=== PATIENT | female | born 1980 | race Caucasian/White ===

== ENCOUNTER → 2020-07-22 08:53 | Outpatient (BNVA) | payer MEDICAID, SELFPAY | PROVIDERS: Visit Provider Obstetrics & Gynecology | DX: N92.0 Excessive and frequent menstruation with regular cycle (principal); D64.9 Anemia, unspecified; Z80.3 Family history of malignant neoplasm of breast | CPT/HCPCS: 99213 ==

== ENCOUNTER 2020-08-10 16:16 | Outpatient (REF) | payer MEDICAID, SELFPAY ==
--- NOTE | 2020-08-10 16:36 | MR_ITS ---
EXAMINATION: MR BREAST WITHOUT AND WITH CONTRAST, BILATERAL CLINICAL INFORMATION: Family history of breast cancer. COMPARISON: Bilateral breast MRI 08/07/2019, bilateral mammogram 08/14/2019. TECHNIQUE: Imaging was performed with a dedicated breast coil. Prior to the administration of contrast, bilateral axial T1 and bilateral axial T2 weighted sequences were obtained. After the uneventful administration of?7 mL of Gadavist, dynamic contrast-enhanced VIBRANT series through the breasts in the axial plane were performed. Subtracted images were performed and reviewed. A delayed sagittal sequence through both breasts was acquired. Additionally, CAD post-processing, including maximum intensity projections, 3-D reconstructions and kinetic analysis, were performed an independent workstation and reviewed by the interpreting radiologist is a portion of this exam. FINDINGS: The patient's heterogeneously dense fibroglandular tissue demonstrates moderate diffuse background enhancement. There are numerous, bilateral, varying-sized cysts present. LEFT BREAST: No suspicious masslike or non-masslike enhancement. No abnormal skin thickening or nipple retraction. No abnormal architectural distortion. Review of the T2 weighted images demonstrates no fibrocystic changes or dilated ducts. Review of kinetic images reveals no additional findings. RIGHT BREAST: In the 3 o'clock position, 6 cm from the nipple, there is new [id number], linear, clumped nodular enhancement measuring 1.7 cm anterior to posterior (subtracted sequence image 67 of 126). Review of most recent prior mammogram reveals innumerable bilateral calcifications, therefore, determining a reliable mammographic correlate would be unlikely. There is no suspicious internal mammary chain or axillary adenopathy. Limited views of the chest and abdomen are unremarkable. MR/MR breast BI wo/w con IMPRESSION: New tyq-wiys-[id number] enhancement in the 3 o'clock position of the right breast. ASSESSMENT: LEFT BREAST: BI-RADS 2, benign findings. RIGHT BREAST: BI-RADS 4, suspicious. RECOMMENDATIONS: MR-guided core biopsy of right breast enhancement. Results were called to Dr. Lama's office on 08/17/20.
== END 2020-08-10 16:17 | disposition home or self-care (01) ==
LOC: HO.MRI 16:16
PROVIDERS: PCP Family Medicine; Visit Provider Obstetrics & Gynecology
DX: Z80.3 Family history of malignant neoplasm of breast (principal)
CPT/HCPCS: 77049

== ENCOUNTER 2020-08-19 12:14 | Outpatient (REF) | payer MEDICAID, SELFPAY ==
--- NOTE | 2020-08-19 12:19 | MM_ITS ---
EXAMINATION: MM SCREENING DIGITAL BREAST TOMOSYNTHESIS, BILATERAL CLINICAL INFORMATION: Screening. Asymptomatic. Family history breast cancer in sister. The lifetime risk of breast cancer based on the Tyrer-Cuzick Model is 17%. COMPARISON: Mammography: 08/14/2019, 08/12/2018, 01/30/2018, 05/31/2017; MRI breast 08/10/2020. TECHNIQUE: Digital breast tomosynthesis is performed in both the craniocaudal and mediolateral oblique views along with computer-aided detection (CAD). Synthesized 2D images are generated from the tomosynthesis. FINDINGS: The breasts are heterogeneously dense, which may obscure small masses (ACR BI-RADS breast composition Category c). There are numerous bilateral scattered similar appearing calcifications again noted. Neither breast shows significant mass or architectural abnormality or developing density. No interval focal abnormal calcifications. The axilla and skin contours are unremarkable. There is no mammographic correlate for the non-mass enhancement posterior medial right breast on recent MRI. MM/MM tomosynthesis screening BI IMPRESSION: 1. No significant changes from prior studies. 2. No mammographic correlate for the non-mass enhancement posterior medial right breast on recent MRI. ASSESSMENT: BI-RADS 2: Benign RECOMMENDATION: 1. Routine annual mammography screening. 2. Comment: Recent MR breast report recommends MR-guided biopsy right breast. This patient's information was entered into a reminder system with a target due date for their next mammogram.
== END 2020-08-19 12:15 | disposition home or self-care (01) ==
LOC: HO.MAMMO 12:14
PROVIDERS: Visit Provider Family Medicine
DX: Z12.31 Encounter for screening mammogram for malignant neoplasm of breast (principal)
CPT/HCPCS: 77063; 77067

== ENCOUNTER → 2020-08-23 08:30 | Outpatient (BNVA) | payer MEDICAID, SELFPAY | PROVIDERS: PCP Family Medicine; Visit Provider Surgery | DX: R92.8 Other abnormal and inconclusive findings on diagnostic imaging of breast (principal); J30.1 Allergic rhinitis due to pollen; K58.9 Irritable bowel syndrome, unspecified; N39.0 Urinary tract infection, site not specified; F41.8 Other specified anxiety disorders; Z88.6 Allergy status to analgesic agent | CPT/HCPCS: 99212 ==

== ENCOUNTER 2020-09-06 07:29 | Outpatient (REF) | payer MEDICAID, SELFPAY ==
--- NOTE | 2020-09-06 07:38 | MR_ITS ---
EXAMINATION: MR BREAST WITHOUT AND WITH CONTRAST (TARGETING FOR BIOPSY) CLINICAL INFORMATION: Family history breast cancer, sister, age 32. Patient presents for MR guided biopsy posterior medial right breast for linear superficial enhancement noted on high risk screening MR 08/10/2020. COMPARISON: MRI breasts 08/10/2020, screening digital breast tomosynthesis 08/19/2020. TECHNIQUE/PROCEDURE: Hospital provided telecom manager assisted during consent and throughout the imaging and planned procedure. Informed consent was obtained from the patient after discussion of the benefits, risks, and alternatives to biopsy today. Patient appeared to understand. Gave opportunity for questions. Patient signed consent form. MR imaging is performed without and with use of 7.0 mL Gadavist gadolinium contrast. Patient prone. [facility] localization system is used with grid. Multiple sequences performed early phase following contrast. Subtraction images also performed. There is no focal abnormal enhancement demonstrated in the area of concern to target for tissue sampling. Biopsy is therefore not performed. Recommend follow-up high risk breast MR in 6-12 months to reassess. Preliminary management plans discussed with the patient. Results called to product manager medical device ([facility]) for Dr. Gonzalez on 09/06/2020. MR/MR guided breast biopsy RT IMPRESSION: No focal abnormal enhancement in area of concern 2 targeted for tissue sampling. Biopsy is not performed. ASSESSMENT: BI-RADS 3: Probably Benign RECOMMENDATION: MR bilateral breasts in 6-12 months.
== END 2020-09-06 07:30 | disposition home or self-care (01) ==
LOC: HO.MRI 07:29
PROVIDERS: PCP Family Medicine; Visit Provider Surgery
DX: R92.8 Other abnormal and inconclusive findings on diagnostic imaging of breast (principal)
CPT/HCPCS: 19085; A9585

== ENCOUNTER → 2020-10-07 10:50 | Outpatient (BNVA) | payer MEDICAID, SELFPAY | PROVIDERS: PCP Family Medicine; Visit Provider Obstetrics & Gynecology | DX: Z76.89 Persons encountering health services in other specified circumstances (principal) ==

== ENCOUNTER 2020-10-17 13:42 | Outpatient (REF) | payer MEDICAID, SELFPAY ==
[2020-10-18 21:57] LABS: C. trachomatis RNA TMA NOT DETECTED (NOT DETECTED); N. gonorrhoeae RNA TMA NOT DETECTED (NOT DETECTED)
== END 2020-10-17 13:43 | disposition home or self-care (01) ==
LOC: HO.LAB 13:42
PROVIDERS: PCP Family Medicine; Visit Provider Advanced Practice Midwife
DX: Z20.2 Contact with and (suspected) exposure to infections with a predominantly sexual mode of transmission (principal)
CPT/HCPCS: 87491; 87591

== ENCOUNTER → 2020-10-24 15:26 | Outpatient (BNVA) | payer MEDICAID, SELFPAY | PROVIDERS: PCP Family Medicine; Visit Provider Obstetrics & Gynecology | DX: Z01.818 Encounter for other preprocedural examination (principal); N92.0 Excessive and frequent menstruation with regular cycle | CPT/HCPCS: 99212 ==

== ENCOUNTER 2020-10-28 07:11 | Day surgery (SDC) | payer MEDICAID, SELFPAY ==
[2020-10-20 13:34] VITALS: BMI 26.5
--- NOTE | 2020-10-26 14:15 | HO.ANESPROP2 ---
HPI - Anesthesia Eval Consult details Narrative: 40yo F for Uterine Ablation w/Novasure Rescheduled d/t fever >100 PMFSH Past Medical History Medical History Acid reflux Anemia Anxiety Asthma Depression GERD (gastroesophageal reflux disease) History of kidney stones History of thyroid disorder IBS (irritable bowel syndrome) Recurrent urinary tract infection Family History Family History Father Diabetes mellitus Mother Stroke Diabetes mellitus HTN (hypertension) Family/Other Breast cancer Ovarian cancer Uterine cancer Son No problems noted. Son No problems noted. Daughter No problems noted. Surgical History Surgical History H/O section History of bilateral tubal ligation History of carpal tunnel surgery of left wrist History of kidney surgery History of lumpectomy of left breast Social History Social History Alcohol intake: never Smoking Status: Never smoker Second Hand Smoke Exposure: No Use of substances other than those prescribed or required for medical reasons: No Advance Directives: No Advance Directives Information Provided: No Advance Directives on File: No Sexual orientation: Straight/Heterosexual Gender identity: female Meds Allergies Allergy/AdvReac Type Severity Reaction Status Date / Time aspirin Allergy Intermediate itching Verified 10/24/20 15:40 pollen Allergy Intermediate Sneezing Uncoded 10/24/20 15:40 Home Medications Medication Instructions Recorded Confirmed Type albuterol sulfate 90 mcg/actuation 2 puff INHALATION Q6H PRN 07/22/20 10/07/20 History aerosol inhaler cholecalciferol (vitamin D3) 10 10 mcg PO DAILY 07/22/20 10/07/20 History mcg (400 unit) capsule cyclobenzaprine 5 mg tablet 10 mg PO BEDTIME 07/22/20 10/07/20 History gabapentin 300 mg capsule 300 mg PO DAILY 07/22/20 10/07/20 History naproxen sodium 550 mg tablet 550 mg PO BID PRN 07/22/20 10/07/20 History norethindrone (contraceptive) 0.35 0.35 mg PO DAILY 07/22/20 10/07/20 History mg tablet fluticasone propionate 1 spray INTRANASAL DAILY 08/04/20 10/07/20 History loratadine 10 mg PO DAILY 08/04/20 10/07/20 History melatonin 1 mg PO BEDTIME PRN 08/04/20 10/07/20 History omeprazole 20 mg PO DAILY 08/04/20 10/07/20 History Exam Exam Date and Time: October 26, 2020 141 Height,Weight and Vital Signs: Height 5 ft 3 in Weight 68.039 kg Pertinent Lab Results Pertinent Lab Results: Laboratory Tests 08/04/20 08/04/20 10:07 10:07 WBC 4.4 L Hgb 12.3 Hct 35.9 L Plt Count 264 Sodium 137 Potassium 4.2 Chloride 104 Carbon Dioxide 29 BUN 10 Creatinine 0.79 Assessment and Plan Assessment Anesthesia Assessment: Chart Reviewed
[2020-10-27 08:40] VITALS: BMI 26.5
--- NOTE | 2020-10-28 08:04 | MHC.SHP ---
Pre-Procedural Eval Section A The patient is an INPATIENT: No Changes since office visit: No Cold of Flu in the past 2 weeks, No New Medical Problems, No Changes in Medication and No Patient answered all questions The History & Physical has been completed within 30 days and I have reviewed it.: Yes Section B Chief Complaint: menorrhagia Allergies: Allergies Allergy/AdvReac Type Severity Reaction Status Date / Time aspirin Allergy Intermediate itching Verified 10/24/20 15:40 pollen Allergy Intermediate Sneezing Uncoded 10/24/20 15:40 Plan Diagnosis/Plan: Unchanged I have reviewed the history and physical and performed a pertinent physical examination on my patient. No changes have occurred unless specified.
[2020-10-28 08:13] VITALS: BP 126/84; PULSE 111; RESP 16; TEMP 37.7; O2SAT 100
[2020-10-28 08:35] LABS: COVID-19 Test Negative (Negative)
== END 2020-10-28 23:59 ==
LOC: HO.SSS 07:11
PROVIDERS: Anesthesiology; PCP Family Medicine; Visit Provider Obstetrics & Gynecology
DX: N92.0 Excessive and frequent menstruation with regular cycle (principal); Z53.09 Procedure and treatment not carried out because of other contraindication; R50.9 Fever, unspecified
CPT/HCPCS: 36415; 87635; J1100; J2250; J2405; J3010

== ENCOUNTER → 2020-11-16 13:35 | Outpatient (BNVA) | payer MEDICAID, SELFPAY | PROVIDERS: Visit Provider Obstetrics & Gynecology | DX: Z76.89 Persons encountering health services in other specified circumstances (principal) ==

== ENCOUNTER → 2020-12-07 11:09 | Outpatient (BNVA) | payer MEDICAID, SELFPAY | PROVIDERS: PCP Family Medicine; Visit Provider Obstetrics & Gynecology | DX: N92.0 Excessive and frequent menstruation with regular cycle (principal) | CPT/HCPCS: 99212 ==

== ENCOUNTER 2020-12-16 10:29 | Day surgery (SDC) | payer MEDICAID, SELFPAY ==
[2020-12-12 12:47] VITALS: BMI 25.8
--- NOTE | 2020-12-14 12:05 | P.CONAN_ITS ---
Documented by User: Ekta Eisenberg 12/14/20 12:06 HPI - Anesthesia Eval Consult details Narrative: 40yo F for Uterine Ablation w/Novasure Rescheduled from 10/26/20 d/t fever >100 and tachy PMFSH Active Problems Active Problems: All Active Problems (Updated 12/12/20 @ 12:54 by Roberta Burris) Menorrhagia (Acute) FH: breast cancer in first degree relative (Acute) Iron deficiency anemia (Acute) Abnormal MRI, breast (Acute) Well woman exam with routine gynecological exam (Acute) Potential exposure to STD (Acute) Past Medical History Medical History (Updated 12/16/20 @ 12:01 by Nikky Murray) Acid reflux Anemia Anxiety Asthma Depression GERD (gastroesophageal reflux disease) History of kidney stones History of thyroid disorder IBS (irritable bowel syndrome) Recurrent urinary tract infection Shoulder pain Family History Family History Father Diabetes mellitus Mother Stroke Diabetes mellitus HTN (hypertension) Family/Other Breast cancer Ovarian cancer Uterine cancer Son No problems noted. Son No problems noted. Daughter No problems noted. Surgical History Surgical History H/O section History of bilateral tubal ligation History of carpal tunnel surgery of left wrist History of lumpectomy of left breast Hx of lithotripsy Social History Social History Alcohol intake: never Smoking Status: Former smoker Smoking Quit Date: 10/2020 Second Hand Smoke Exposure: No Use of substances other than those prescribed or required for medical reasons: No Advance Directives: No Advance Directives Information Provided: No Advance Directives on File: No Sexual orientation: Straight/Heterosexual Gender identity: female Meds Allergies Allergy/AdvReac Type Severity Reaction Status Date / Time aspirin Allergy Intermediate itching Verified 12/12/20 12:25 Penicillins Allergy Unknown Verified 12/16/20 11:07 pollen Allergy Intermediate Sneezing Uncoded 12/12/20 12:25 Home Medications Medication Instructions Recorded Confirmed Last Taken Type albuterol sulfate 90 mcg/actuation 2 puff INHALATION Q6H PRN 07/22/20 12/12/20 Unknown History aerosol inhaler cholecalciferol (vitamin D3) 10 10 mcg PO DAILY 07/22/20 12/12/20 Unknown History mcg (400 unit) capsule cyclobenzaprine 5 mg tablet 10 mg PO BEDTIME 07/22/20 12/12/20 Unknown History gabapentin 300 mg capsule 300 mg PO BID 07/22/20 12/12/20 Unknown History naproxen sodium 550 mg tablet 550 mg PO BID PRN 07/22/20 12/12/20 Unknown History fluticasone propionate 1 spray INTRANASAL DAILY 08/04/20 12/12/20 Unknown History loratadine 10 mg PO DAILY 08/04/20 12/12/20 12/16/20 History melatonin 1 mg PO BEDTIME PRN 08/04/20 12/12/20 Unknown History omeprazole 20 mg PO DAILY 08/04/20 12/12/20 12/16/20 History Exam Exam Date and Time: December 14, 2020 1205 Height,Weight and Vital Signs: Height 5 ft 3 in Weight 66.224 kg Pertinent Lab Results Pertinent Lab Results: Laboratory Tests 08/04/20 10:07 WBC 4.4 L Hgb 12.3 Hct 35.9 L Plt Count 264 Assessment and Plan Assessment Anesthesia Assessment: Chart Reviewed Documented by User: Nikky Murray 12/16/20 12:01 REPLACED BY [facility] Past Medical History Medical History (Updated 12/16/20 @ 12:01 by Nikky Murray) Acid reflux Anemia Anxiety Asthma Depression GERD (gastroesophageal reflux disease) History of kidney stones History of thyroid disorder IBS (irritable bowel syndrome) Recurrent urinary tract infection Shoulder pain Family History Family History Father Diabetes mellitus Mother Stroke Diabetes mellitus HTN (hypertension) Family/Other Breast cancer Ovarian cancer Uterine cancer Son No problems noted. Son No problems noted. Daughter No problems noted. Family history of problems with anesthesia: No Surgical History Surgical History H/O section History of bilateral tubal ligation History of carpal tunnel surgery of left wrist History of lumpectomy of left breast Hx of lithotripsy History of Problems with Anesthesia: No Social History Social History Alcohol intake: never Smoking Status: Former smoker Smoking Quit Date: 10/2020 Second Hand Smoke Exposure: No Use of substances other than those prescribed or required for medical reasons: No Advance Directives: No Advance Directives Information Provided: No Advance Directives on File: No Sexual orientation: Straight/Heterosexual Gender identity: female Meds Allergies Allergy/AdvReac Type Severity Reaction Status Date / Time aspirin Allergy Intermediate itching Verified 12/12/20 12:25 Penicillins Allergy Unknown Verified 12/16/20 11:07 pollen Allergy Intermediate Sneezing Uncoded 12/12/20 12:25 Home Medications Medication Instructions Recorded Confirmed Last Taken Type albuterol sulfate 90 mcg/actuation 2 puff INHALATION Q6H PRN 07/22/20 12/12/20 Unknown History aerosol inhaler cholecalciferol (vitamin D3) 10 10 mcg PO DAILY 07/22/20 12/12/20 Unknown History mcg (400 unit) capsule cyclobenzaprine 5 mg tablet 10 mg PO BEDTIME 07/22/20 12/12/20 Unknown History gabapentin 300 mg capsule 300 mg PO BID 07/22/20 12/12/20 Unknown History naproxen sodium 550 mg tablet 550 mg PO BID PRN 07/22/20 12/12/20 Unknown History fluticasone propionate 1 spray INTRANASAL DAILY 08/04/20 12/12/20 Unknown History loratadine 10 mg PO DAILY 08/04/20 12/12/20 12/16/20 History melatonin 1 mg PO BEDTIME PRN 08/04/20 12/12/20 Unknown History omeprazole 20 mg PO DAILY 08/04/20 12/12/20 12/16/20 History Exam Height,Weight and Vital Signs: Vital Signs Temp Pulse Resp BP Pulse Ox 12/16/20 11:14 98.8 F 108 H 16 128/91 H 100 Pertinent Lab Results Pertinent Lab Results: Lab Results 12/16/20 Range/Units 10:50 Urine Test NEGATIVE (NEGATIVE) Airway Mallampati Class: II TM Dist: >3cm Neck ROM: Full Partial: Upper and Lower Heart: RRR Lungs: CTAB Assessment and Plan Assessment Anesthesia Assessment: Anesthesia Plan Discussed and Chart Reviewed Final Anesthetic Review NPO: Yes ASA Class: II Final Preanesthetic Review: No Changes in Pt Med Stat, Meds/Allgs Chart Reviewed, Consent Obtained/Reviewed and Anes Risks/Benef Reviewed Patient Risk: Low Procedure Risk: Low Assessment/Block/Sedation in SS: Assess/Block/Sedation-SS Anesthetic Plan Anesthetic Plan: GA Disposition: Standard PACU
[2020-12-16] VITALS (8 sets, daily range): BP systolic 128–141; BP diastolic 73–95; PULSE 81–108; RESP 14–16; TEMP 36.3–37.1; O2SAT 98–100
[2020-12-16 11:00] LABS: UPreg QC Valid YES; Urine Pregnancy NEGATIVE (NEGATIVE)
[2020-12-16] MEDS: Lactated Ringers 1,000 ML 100 ML IVCONT (11:28)
--- NOTE | 2020-12-16 11:34 | MHC.SHP ---
Pre-Procedural Eval Section B Chief Complaint: Menorrhagia Allergies: Allergies Allergy/AdvReac Type Severity Reaction Status Date / Time aspirin Allergy Intermediate itching Verified 12/12/20 12:25 Penicillins Allergy Unknown Verified 12/16/20 11:07 pollen Allergy Intermediate Sneezing Uncoded 12/12/20 12:25 Plan I have reviewed the history and physical and performed a pertinent physical examination on my patient. No changes have occurred unless specified.
--- NOTE | 2020-12-16 12:31 | W.PM.OPN ---
Operative Note Operative Note Date of Service: 09/02/20 Narrative: Preop diagnosis: Menorrhagia Post Op Diagnosis: Same Op: Novasure Endometrial Ablation Anesthesia: [employer] Sales Donor Recruitment Representative: None QBL: Minimal Pathology: None Complications: None Procedure: The patient was put in the dorsal lithotomy position. She was prepped and draped in the usual sterile manner. Bimanual exam prior to prepping revealed a mobile, anteverted uterus. A speculum was placed in the vagina and the anterior lip of the cervix was grasped with a single toothed tenaculum and brought forward. Taking care not to enter deep into the uterus, a sound was passed inside to measure the length of the uterus and cervix. This length was found to be 8 cm. Next, Hegar dilator was inserted into the cervical os to measure the cervical length which was 3 cm. This yielded an endometrial cavity length of 6.5 cm. A series of Hegar dilators were then inserted sequentially into the cervical os up to a size of 5 mm. The Novasure device was then opened and tested; the fan deployed easily. The instrument was set to the correct cavity length and introduced into the uterine cavity. The fan was slowly deployed with gentle movements to ensure a snug fit within the cavity. The cavity width read 4.5 cm. The measurements were imported and a cavity check was done. The trumpet was then slid down to the cervix and the device was activated. The total burn time was 91 seconds. The fan was retracted and device removed. The fan was examined and revealed charred tissue. The tenaculum was removed and the cervix examined for hemostasis which was achieved using pressure. Finally the speculum was removed. The patient tolerated the procedure well and was brought to the recovery room in a stable condition. At the end of the procedure all sponges and instruments were counted and correct. The blood loss was minimal and there were no complications.
[2020-12-16] MEDS: Acetaminophen 325 MG TABLET 650 MG PO (13:02)
[2020-12-16] MEDS: oxyCODONE HCl Immed Release 5 MG TABLET PO (13:02)
[2020-12-16] MEDS: fentaNYL citrate/PF 100 MCG/2 ML VIAL 25 MCG IVPUSH (13:03)
== END 2020-12-16 14:06 ==
LOC: HO.SSS 10:30
PROVIDERS: PCP Family Medicine; Visit Provider Obstetrics & Gynecology
PROC: (CPT 58353; principal; 2020-12-16 12:20)
DX: N92.0 Excessive and frequent menstruation with regular cycle (principal); D50.9 Iron deficiency anemia, unspecified; J45.909 Unspecified asthma, uncomplicated; Z98.51 Tubal ligation status; Z87.440 Personal history of urinary (tract) infections; Z79.51 Long term (current) use of inhaled steroids; Z79.899 Other long term (current) drug therapy
CPT/HCPCS: 58353; 81025; J1100; J1885; J2250; J2405; J3010

== ENCOUNTER → 2020-12-28 11:16 | Outpatient (BNVA) | payer MEDICAID, SELFPAY | PROVIDERS: Visit Provider Obstetrics & Gynecology ==

== ENCOUNTER 2021-01-04 09:40 | Outpatient (REF) | payer MEDICAID, SELFPAY ==
--- NOTE | 2021-01-04 09:43 | EMG_ITS ---
HISTORY OF PRESENT ILLNESS: This is a 40-year-old woman, who has had left carpal tunnel release about 5 years ago, who now comes in with predominantly right upper extremity pain, numbness, and tingling and minor symptoms on the left. She is on no medications. PHYSICAL EXAMINATION: On examination, she is alert and oriented with normal intellectual functions. Cranial nerves II through XII are normal. No Tinel or Phalen sign. IMPRESSION: Carpal tunnel syndrome. Nerve conduction EMG study: Moderate carpal tunnel syndrome on the right. Normal EMG of the right C5-T1 innervated muscles. MD JUAN Navas/RIC / [id number]
== END 2021-01-04 09:41 | disposition home or self-care (01) ==
LOC: HO.NEURO 09:40
PROVIDERS: PCP Family Medicine; Visit Provider Family Medicine
DX: G56.03 Carpal tunnel syndrome, bilateral upper limbs (principal)
CPT/HCPCS: 95885; 95913

== ENCOUNTER → 2021-01-16 12:30 | Outpatient (BNVA) | payer MEDICAID, SELFPAY | PROVIDERS: PCP Family Medicine; Visit Provider Orthopaedic Surgery | DX: G56.01 Carpal tunnel syndrome, right upper limb (principal); R20.0 Anesthesia of skin | CPT/HCPCS: 99202 ==

== ENCOUNTER 2021-02-23 10:12 | Day surgery (SDC) | payer MEDICAID, SELFPAY ==
[2021-02-23 11:34] VITALS: BP 131/83; PULSE 100; RESP 16; TEMP 36.7; O2SAT 100; BMI 25.3
[2021-02-23 14:46] VITALS: BP 142/93; PULSE 83; RESP 17; TEMP 36.7; O2SAT 100
--- NOTE | 2021-03-06 10:30 | W.PM.OPN ---
Operative Note Operative Note Date of Service: 02/23/21 Narrative: Preop diagnosis: 1. Right Carpal tunnel syndrome Postop diagnosis: same Procedure: 1. Right Carpal tunnel release Surgeon: Nubia Robles MD Anesthesia: local block using 1% lidocaine with epinephrine Findings: Thickened transverse carpal ligament. EBL: Less than 5 mL Specimens: None Complications: None Disposition: Brought to recovery room in stable condition Plan: Follow-up for 7-10 days for wound check and suture removal Indications: The patient is 40 years old, with right carpal tunnel syndrome that has been unresponsive to nonoperative management. The risks and benefits of operative treatment including but not limited to risk of damage to blood vessels, nerves, tendons, infection, persistent pain, persistent symptoms, or possible need for additional surgery were discussed with the patient and the patient wishes to proceed with surgery. Procedure: Once consent was obtained a local block was performed using a combination of 1% lidocaine with epinephrine. The patient was then brought back to the operating suite and placed on the operative table in supine position. A tourniquet was applied to the proximal aspect of the right upper extremity and the limb was prepped and draped in a standard surgical fashion. Once assured that we had a good block, a 1.5 cm longitudinal incision was made centered over the carpal tunnel. The incision was made through the skin to the subcutaneous tissues using a #15 blade. Dissection was made down to the level of the transverse carpal ligament with care being taken to protect the palmar cutaneous nerve. Once the transverse carpal ligament was clearly visualized, a longitudinal incision was made in the transverse carpal ligament 1st using a #15 blade, then using tenotomy scissors under direct visualization. Care was taken to look for and protect the motor branch of the median nerve when seen in this area. Once satisfied with our carpal tunnel release the wound was copiously irrigated with normal saline and hemostasis was obtained with a brief period of local pressure. The skin edges were reapproximated with some 5.0 nylon suture material and a sterile dressing was applied. The patient appears to have tolerated the procedure well and with no complications. All digits were well vascularized at the conclusion of the case.
== END 2021-02-23 14:49 | disposition home or self-care (01) ==
LOC: HO.SSS 10:13
PROVIDERS: PCP Family Medicine; Visit Provider Orthopaedic Surgery
PROC: (CPT 64721; principal; 2021-02-23 12:20)
DX: G56.01 Carpal tunnel syndrome, right upper limb (principal); J45.909 Unspecified asthma, uncomplicated; F32.9 Major depressive disorder, single episode, unspecified; Z79.899 Other long term (current) drug therapy; Z79.51 Long term (current) use of inhaled steroids; Z88.1 Allergy status to other antibiotic agents; Z88.8 Allergy status to other drugs, medicaments and biological substances; Z87.891 Personal history of nicotine dependence
CPT/HCPCS: 64721

== ENCOUNTER → 2021-03-06 09:10 | Outpatient (BNVA) | payer MEDICAID, SELFPAY | PROVIDERS: PCP Family Medicine; Visit Provider Orthopaedic Surgery | DX: G56.01 Carpal tunnel syndrome, right upper limb (principal); R20.0 Anesthesia of skin | CPT/HCPCS: 99212 ==

== ENCOUNTER → 2021-03-14 10:24 | Outpatient (BNVA) | payer MEDICAID, SELFPAY | PROVIDERS: Visit Provider Orthopaedic Surgery | DX: G56.01 Carpal tunnel syndrome, right upper limb (principal) | CPT/HCPCS: 99212 ==

== ENCOUNTER 2021-03-29 14:30 | Outpatient (RCR) | payer MEDICAID, SELFPAY | END 2021-05-26 11:42 | disposition other institution (70) | LOC: HO.OT 14:30 | PROVIDERS: PCP Family Medicine; Visit Provider Orthopaedic Surgery | DX: G56.01 Carpal tunnel syndrome, right upper limb (principal) | CPT/HCPCS: 97033; 97110; 97165; 97760 ==

== ENCOUNTER 2021-06-23 11:18 | Outpatient (REF) | payer MEDICAID, SELFPAY | END 2021-06-23 11:19 | disposition home or self-care (01) | LOC: HO.LAB 11:18 | PROVIDERS: PCP Family Medicine; Visit Provider Internal Medicine | DX: Z20.822 Contact with and (suspected) exposure to COVID-19 (principal) | CPT/HCPCS: C9803; U0003; U0005 ==

== ENCOUNTER 2021-07-30 12:28 | Emergency (ER) | payer MEDICAID, SELFPAY ==
--- NOTE | ~2021-07-30 | XR_ITS ---
EXAMINATION: XR CHEST CLINICAL INFORMATION: Right-sided chest wall pain COMPARISON: None TECHNIQUE: Frontal view of the chest was obtained. FINDINGS: No significant abnormality is noted involving the heart, lungs, mediastinum, bony thorax or soft tissues. XR/XR chest 1V IMPRESSION: Unremarkable chest examination.
--- NOTE | ~2021-07-30 | CT_ITS ---
EXAMINATION: CT ABDOMEN AND PELVIS WITH CONTRAST CLINICAL INFORMATION: Epigastric pain COMPARISON: 03/29/2016 TECHNIQUE: Multidetector volumetric images were obtained from the superior aspect of the liver through the pubic symphysis following administration 85 mL of Omnipaque 350 intravenous contrast. Sagittal and coronal reformatted images were obtained on the technologist's workstation. Oral contrast: No This CT examination was performed using dose optimization techniques as appropriate, variously including the following: *Automated exposure control *Adjustment of mA and/or kV according to patient size (this includes techniques or standardized protocols for targeted exams where dose is matched to indication/reason for exam; i.e. extremities or head) *Use of iterative reconstruction technique DLP: 446 mGy-cm FINDINGS: LUNG BASES: The visualized lung bases are unremarkable. LIVER, GALLBLADDER, AND BILIARY TREE: The liver is normal in size, shape, and attenuation. No focal hepatic lesion or biliary ductal dilatation is present. The gallbladder is unremarkable with no evidence of radiopaque gallstones, gallbladder wall thickening, or obvious pericholecystic inflammatory changes. PANCREAS: Unremarkable. SPLEEN: Unremarkable. ADRENAL GLANDS: Unremarkable. KIDNEYS AND URETERS: The kidneys are normal in size, shape, and attenuation. No hydronephrosis, hydroureter, or calculi seen. No perinephric stranding. Extrarenal pelvis bilaterally. BLADDER: Unremarkable. GASTROINTESTINAL TRACT: The small and large bowel are unremarkable. The appendix is unremarkable. ABDOMINAL WALL: No significant hernia is appreciated. LYMPH NODES: Normal. VASCULAR: Unremarkable. PELVIC VISCERA: Unremarkable. OSSEOUS STRUCTURES: Unremarkable. CT/CT abdomen pelvis w con IMPRESSION: No significant abnormality.
[2021-07-30 13:13] VITALS: BP 129/89; PULSE 86; RESP 18; TEMP 36.8; O2SAT 97; BMI 26.7
[2021-07-30 13:34] LABS: Basophils Percent Auto 0.7 % (0-2); Eosinophils Absolute Auto 0.1 X10*3/uL (0.0-0.4); Eosinophils Percent Auto 1.1 % (0-4); Hematocrit 38.5 % (37-47); Hemoglobin 12.8 g/dl (12.0-16.0); Imm Gran Abs Auto 0.01 X10*3/uL (0.00-0.03); Imm Gran Pct Auto 0.2 % (0.0-0.4); Lymphocytes Absolute Auto 1.8 X10*3/uL (1.2-4.9); MANUAL DIFF FLAG NO; Mean Corpuscular HGB Conc 33.2 g/dl (31.0-35.0); Mean Corpuscular Hemoglobin 29.9 pg (27.0-33.0); Mean Platelet Volume 10.3 fL (9.4-12.3); Monocytes Absolute Auto 0.4 X10*3/uL (0.1-1.2); Neutrophils Absolute Auto 3.3 X10*3/uL (2.0-8.3); Platelet Count 265 X10*3/uL (160-400); Red Blood Count 4.28 X10*6/uL (4.20-5.50); Red Cell Distribution Width 12.1 % (11.0-16.0); White Blood Count 5.6 X10*3/uL (4.8-10.8)
[2021-07-30 13:53] LABS: Alanine Aminotransferase 20 U/L (0-31); Albumin Level 4.4 g/dL (3.5-5.0); Alkaline Phosphatase 45 U/L (39-117); Anion Gap 11 (12-20); Aspartate Amino Transferase 19 U/L (5-31); Bilirubin Direct 0.2 mg/dL (0.0-0.5); Bilirubin Total 0.4 mg/dL (0.0-1.0); Blood Urea Nitrogen 6 mg/dL (9-16); Calcium 9.1 mg/dL (8.4-10.2); Carbon Dioxide 26 mmol/L (22-29); Chloride 105 mmol/L (96-108); Creatinine Clr Calc Pharmacy 80.2; Estimated Glomerular Filt Rate > 60; Glucose Random 91 mg/dL (60-115); Lipase 12 U/L (8-78); Potassium 4.1 mmol/L (3.3-5.1); Sodium 138 mmol/L (135-145); Total Protein 7.5 g/dL (6.5-8.0)
[2021-07-30 13:55] LABS: Troponin-I High Sensitivity < 3.5 ng/L (<3.5-17.0)
[2021-07-30 16:01] LABS: Appearance Urine CLEAR; Color Urine STRAW; Glucose Urine UA NEG (NEG); Leukocyte Esterase Urine NEG (NEG); Nitrite Urine NEG (NEG); PH 6.5 (5.0-8.0); Specific Gravity - Urine <= 1.005 (1.005-1.025); UACC Culture Trigger NO; Urine Blood 2+ (NEG); Urine Ketones NEG (NEG); Urine Protein NEG (NEG-TRACE)
[2021-07-30 16:03] LABS: UPreg QC Valid YES; Urine Pregnancy NEGATIVE (NEGATIVE)
[2021-07-30 16:11] LABS: Amorphous Sediment Urine TRACE /LPF; Bacteria Urine TRACE /LPF; RBC Urine 0-2 /HPF (0); Squamous Epithelial Cell Urine TRACE /LPF; WBC Urine 0-2 /HPF (0-4)
[2021-07-30 16:32] VITALS: BP 159/91; PULSE 116; RESP 17; TEMP 37.1; O2SAT 100
--- NOTE | 2021-07-30 16:56 | ED_ITS ---
HPI - General Adult General Chief complaint: General Medical Stated complaint: shoulder & abd pain Time Seen by Provider: 07/30/21 16:55 Source: patient Mode of arrival: ambulatory Limitations: language barrier History of Present Illness HPI narrative: 41-year-old Nepalese-speaking woman presents with right-sided jody st wall pain and epigastric pain. Her chest pain is constant, and is worse when she lifts objects. Patient reports she is very stressed because her dad is ill in [place]. Patient has had no nausea, no shortness of breath, no sweating. The chest pain is on the right side and has been constant for the last 4 days. In addition patient has epigastric pain. This pain she describes as a stabbing, it does not radiate to her back. It is an 8/10, and is intermittent, no nausea, no vomiting, no diarrhea. It is not worse with eating. Patient did have a referral to GI, but she had to go to [place] because her father was ill and miss the appointment. Related Data Home Medications Medication Instructions Recorded Confirmed albuterol sulfate 90 mcg/actuation 2 puff INHALATION Q6H PRN 07/22/20 12/28/20 aerosol inhaler cholecalciferol (vitamin D3) 10 10 mcg PO DAILY 07/22/20 12/28/20 mcg (400 unit) capsule cyclobenzaprine 5 mg tablet 10 mg PO BEDTIME 07/22/20 12/28/20 gabapentin 300 mg capsule 300 mg PO BID 07/22/20 12/28/20 naproxen sodium 550 mg tablet 550 mg PO BID PRN 07/22/20 12/28/20 (Anaprox DS) fluticasone propionate 50 1 spray INTRANASAL DAILY 08/04/20 12/28/20 mcg/actuation nasal spray,suspension loratadine 10 mg tablet 10 mg PO DAILY 08/04/20 12/28/20 melatonin 1 mg tablet 1 mg PO BEDTIME PRN 08/04/20 12/28/20 omeprazole 20 mg capsule,delayed 20 mg PO DAILY 08/04/20 12/28/20 release Previous Rx's Medication Instructions Recorded hydrocodone 5 mg-acetaminophen 325 1 tab PO Q4-6H PRN #5 tab 02/23/21 mg tablet lidocaine 5 % topical patch 1 patch TOPICAL DAILY #15 ea 07/30/21 omeprazole 40 mg capsule,delayed 40 mg PO DAILY 30 Days #30 cap 07/30/21 release Allergies Allergy/AdvReac Type Severity Reaction Status Date / Time aspirin Allergy Intermediate itching Verified 07/30/21 13:18 Penicillins Allergy Unknown Verified 07/30/21 13:18 pollen Allergy Intermediate Sneezing Uncoded 07/30/21 13:18 Review of Systems Constitutional: Constitutional: Denies body ache(s), Denies chills, Denies fatigue, Denies fever(s), Denies headache(s), Denies malaise and Denies weakness Eyes: Eyes: Denies diplopia ENT: Denies vertigo, Denies dizziness, Denies otalgia, Denies headache(s), Denies mouth pain, Denies post nasal drip, Denies sinus pain, Denies sinus pressure, Denies sore throat and Denies throat swelling Cardiovascular: Cardiovascular: Reports chest pain, Reports Epigastric Pain, Denies syncope, Denies leg edema, Denies lightheadedness, Denies Loss of Consciousness, Denies palpitations, Denies dyspnea and Denies dyspnea on exertio n Respiratory: Respiratory: Denies chest congestion, Denies cough, Denies dyspnea and Denies dyspnea on exertion Gastrointestinal: Gastrointestinal: Reports abdominal pain, Denies melena, Denies hematochezia, Denies coffee ground emesis, Denies constipation, Denies diarrhea, Denies nausea and Denies vomiting Genitourinary: Genitourinary: Reports no additional female genitourinary complaints Musculoskeletal: Musculoskeletal: Reports no additional musculoskeletal complaints Integumentary/Breasts: Skin/Breast: Denies rash Neurologic: Denies confusion, Denies vertigo, Denies dizziness, Denies sync ope, Denies headache(s) and Denies weakness Psychiatric: Psychiatric: Denies anxiety, Denies confusion and Denies depression Endocrine: Endocrine: Denies fatigue and Denies palpitations Allergic/Immunologic: Allergic/Immunologic: Denies throat swelling PMFSH Past Medical History Medical History Acid reflux Anemia Anxiety Asthma Depression GERD (gastroesophageal reflux disease) History of kidney stones History of thyroid disorder IBS (irritable bowel syndrome) Recurrent urinary tract infection Shoulder pain Surgical History H/O section History of bilateral tubal ligation History of carpal tunnel surgery of left wrist History of lumpectomy of left breast Hx of lithotripsy Status post endometrial ablation Family History Family History Father Diabetes mellitus Mother Stroke Diabetes mellitus HTN (hypertension) Family/Other Breast cancer Ovarian cancer Uterine cancer Son No problems noted. Son No problems noted. Daughter No problems noted. Social History Social History Alcohol intake: never Smoked in Last 30 Days: No Second Hand Smoke Exposure: Yes Use of substances other than those prescribed or required for medical reasons: Yes Substance Use Type: Marijuana Advance Directives: No Advance Directives Information Provided: Yes Patient : No Sexual orientation: Straight/Heterosexual Gender identity: Female Physical Exam Vital Signs: Vital Signs: Last Vital Signs Temp 99.3 F 07/30/21 18:03 Pulse 78 07/30/21 21:21 Resp 16 07/30/21 21:21 BP 145/96 H 07/30/21 21:21 Pulse Ox 100 07/30/21 21:21 Body Mass Index 26.7 Const: General: No confusion Nutritional Appearance: well nourished Orientation/consciousness: No confusion Limitations: no limitations HENMT: Head: Yes normal to inspection, Yes normocephalic and Yes atraumatic Ears: hearing grossly normal bilaterally, external ears normal, TM's normal bilaterally and EAC's normal General nose exam: Normal external nose present Face and sinus: Yes normal facial exam and Yes sinuses nontender Mouth: Normal oral and palatal mucosa present Throat: Yes posterior oropharynx normal Eyes: Conjunctivae: conjunctivae normal Pupils: Equal, round and reactive pupils present EOM: EOMs intact bilaterally Neck: Neck: Yes full ROM, Yes no lymphadenopathy and Yes supple Chest: Other: Tender to palpate over right side of chest Resp: Effort & Inspection: normal respiratory effort and able to speak in complete sentences Auscultation: clear to auscultation bilaterally, no crackles, no rales, no rhonchi and no wheezes Cardio: Rate: regular rate Rhythm: regular rhythm Heart sounds: S1 normal heart sound present and S2 normal heart sound present GI: Inspection: Yes normal to inspection Palpation (GI): Soft to palpation, Tenderness to palpation present (GI) in the epigastrum and not rigid Percussi on: Yes normal to percussion Auscultation: normal bowel sounds Skin: General skin exam: no rashes or lesions noted Neuro: General: No confusion Cranial nerves: Yes Equal, round and reactive pupils present Extrem: General: Yes normal to inspection and Yes full ROM Psych: Appearance: grossly normal Affect: normal affect Attitude: cooperative Thought process: Normal thought process present Course Course Course Narrative: 41-year-old female presents for chest pain and abdominal pain. Patient states she has been very stressed because her dad is ill and is in [place]. On exam, patient has stable vitals, is tender in her epigastrium. Patient is tender to palpate over her right chest wall. She has a history of chronic right shoulder pain. Workup included troponin, labs including lipase, urine, chest x-ray, EKG, and CT. All of these were negative. Gave patient a GI cocktail with some relief. Prescribed increase in omeprazole, gave lidocaine patches for chest wall pain, Tylenol. Referred patient to GI, Medical Decision Making Lab Data Result diagrams: 07/30/21 13:27 07/30/21 13:27 Labs: Lab Results 07/30/21 07/30/21 07/30/21 Range/Units 13:27 13:27 13:27 WBC 5.6 (4.8-10.8) X10*3/uL RBC 4.28 (4.20-5.50) X10*6/uL Hgb 12.8 (12.0-16.0) g/dl Hct 38.5 (37-47) % MCV 90.0 (80-98) fL MCH 29.9 (27.0-33.0) pg MCHC 33.2 (31.0-35.0) g/dl RDW 12.1 (11.0-16.0) % Plt Count 265 (160-400) X10*3/uL MPV 10.3 (9.4-12.3) fL Immature Gran % (Auto) 0.2 (0.0-0.4) % Neut % (Auto) 59.0 (45-73) % Lymph % (Auto) 32.0 (20-40) % [place] % (Auto) 7.0 (2-11) % Eos % (Auto) 1.1 (0-4) % Baso % (Auto) 0.7 (0-2) % Lymph # (Auto) 1.8 (1.2-4.9) X10*3/uL [place] # (Auto) 0.4 (0.1-1.2) X10*3/uL Eos # (Auto) 0.1 (0.0-0.4) X10*3/uL Baso # (Auto) 0.0 (0.0-0.2) X10*3/uL Abs Immat Gran (auto) 0.01 (0.00-0.03) X10*3/uL Absolute Neuts (auto) 3.3 (2.0-8.3) X10*3/uL Absolute Nucleated RBC 0.000 (0.0-0.012) X10*3/uL Nucleated RBC % (auto) 0.0 (0.0-0.2) /100WBC Sodium 138 (135-145) mmol/L Potassium 4.1 (3.3-5.1) mmol/L Chloride 105 (96-108) mmol/L Carbon Dioxide 26 (22-29) mmol/L Anion Gap 11 L (12-20) BUN 6 L (9-16) mg/dL Creatinine 0.84 (0.5-1.4) mg/dL Estim Creat Clear Calc 80.2 Estimated GFR > 60 Random Glucose 91 (60-115) mg/dL Calcium 9.1 (8.4-10.2) mg/dL Total Bilirubin 0.4 (0.0-1.0) mg/dL Direct Bilirubin 0.2 (0.0-0.5) mg/dL AST 19 (5-31) U/L ALT 20 (0-31) U/L Alkaline Phosphatase 45 (39-117) U/L Troponin I High Sens < 3.5 (<3.5-17.0) ng/L Total Protein 7.5 (6.5-8.0) g/dL Albumin 4.4 (3.5-5.0) g/dL Lipase 12 (8-78) U/L Urine Color Urine Appearance Urine pH (5.0-8.0) Ur Specific [place] (1.005-1.025) Urine Protein (NEG-TRACE) MG/DL Urine Glucose (UA) (NEG) MG/DL Urine Ketones (NEG) MG/DL Urine Blood (NEG) Urine Nitrite (NEG) Ur Leukocyte Esterase (NEG) Urine RBC (0) /HPF Urine WBC (0-4) /HPF Ur Squamous Epith Cells /LPF Amorphous Sediment /LPF Urine Bacteria /LPF Urine Test (NEGATIVE) 07/30/21 07/30/21 07/30/21 Range/Units 15:50 15:54 18:51 WBC (4.8-10.8) X10*3/uL RBC (4.20-5.50) X10*6/uL Hgb (12.0-16.0) g/dl Hct (37-47) % MCV (80-98) fL MCH (27.0-33.0) pg MCHC (31.0-35.0) g/dl RDW (11.0-16.0) % Plt Count (160-400) X10*3/uL MPV (9.4-12.3) fL Immature Gran % (Auto) (0.0-0.4) % Neut % (Auto) (45-73) % Lymph % (Auto) (20-40) % [place] % (Auto) (2-11) % Eos % (Auto) (0-4) % Baso % (Auto) (0-2) % Lymph # (Auto) (1.2-4.9) X10*3/uL [place] # (Auto) (0.1-1.2) X10*3/uL Eos # (Auto) (0.0-0.4) X10*3/uL Baso # (Auto) (0.0-0.2) X10*3/uL Abs Immat Gran (auto) (0.00-0.03) X10*3/uL Absolute Neuts (auto) (2.0-8.3) X10*3/uL Absolute Nucleated RBC (0.0-0.012) X10*3/uL Nucleated RBC % (auto) (0.0-0.2) /100WBC Sodium (135-145) mmol/L Potassium (3.3-5.1) mmol/L Chloride (96-108) mmol/L Carbon Dioxide (22-29) mmol/L Anion Gap (12-20) BUN (9-16) mg/dL Creatinine (0.5-1.4) mg/dL Estim Creat Clear Calc Estimated GFR Random Glucose (60-115) mg/dL Calcium (8.4-10.2) mg/dL Total Bilirubin (0.0-1.0) mg/dL Direct Bilirubin (0.0-0.5) mg/dL AST (5-31) U/L ALT (0-31) U/L Alkaline Phosphatase (39-117) U/L Troponin I High Sens < 3.5 (<3.5-17.0) ng/L Total Protein (6.5-8.0) g/dL Albumin (3.5-5.0) g/dL Lipase (8-78) U/L Urine Color STRAW Urine Appearance CLEAR Urine pH 6.5 (5.0-8.0) Ur Specific [place] <= 1.005 (1.005-1.025) Urine Protein NEG (NEG-TRACE) MG/DL Urine Glucose (UA) NEG (NEG) MG/DL Urine Ketones NEG (NEG) MG/DL Urine Blood 2+ H (NEG) Urine Nitrite NEG (NEG) Ur Leukocyte Esterase NEG (NEG) Urine RBC 0-2 (0) /HPF Urine WBC 0-2 (0-4) /HPF Ur Squamous Epith Cells TRACE /LPF Amorphous Sediment TRACE /LPF Urine Bacteria TRACE /LPF Urine Test NEGATIVE (NEGATIVE) ECG Data Interpretation: Normal sinus at a rate of 90. P are 114, QRS 80, QTC 469, normal axis. No ST depressions or elevations, no Discharge Plan Discharge Clinical Impression: Acute epigastric pain, Atypical chest pain Patient Disposition: Home, Self-Care Instructions: Chest Pain (ED), Epigastric Pain (ED) Additional Instructions: Today everything returned normal. Your chest x-ray was normal, the CT scan of your abdomen and pelvis was normal, your EKG was normal, all of your labs were normal, and your urine was also normal. Please take Tylenol, 1000 mg every 8 hours, not to exceed 3000 mg in 24 hours. I have also prescribed Lidoderm patches for your chest wall pain. You may use 1 of these every 12 hours, make sure to have a 12 hour break between patches. I have referred you to Gastroenterology because I want you to have a follow-up appointment with them. They may consider an endoscope to look into your stomach for ulcers. I have increased your omeprazole dosage to 40 mg a day. Please call your primary care provider on Saturday for a follow-up appointment from today's emergency room visit. Please call the clinical academic allergist at [phone] if you do not hear from them by the end of the day on Saturday. Hoy todo volvi? a la normalidad. Matthew radiograf?a de t?rax fue normal, la tomograf?a computarizada de matthew abdomen y pelvis fue normal, matthew ECG fue normal, todos lucas an?lisis de laboratorio fueron normales y matthew orina tambi?n fue normal. [place] Tylenol, 1000 mg cada 8 horas, sin exceder los 3000 mg en 24 horas. Tambi?n le he recetado parches de Lidoderm para el dolor de la pared tor?cica. Puede usar 1 de estos cada 12 horas, aseg?rese de tener un descanso de 12 horas entre parches. Lo he referido a Gastroenterolog?a porque quiero que tenga nereida jorge de seguimiento con ellos. Es posible que consideren un endoscopio para examinar matthew est?anyg en busca de ?lceras. He aumentado matthew dosis de omeprazol a 40 mg al d?a. Llame a matthew proveedor de atenci?n primaria el janell para programar nereida jorge de seguimiento de la visita a la justin de emergencias de hoy. Llame al gastroente r?logo al [phone] si no tiene noticias de ellos al final del d?a del janell. Prescriptions: New omeprazole 40 mg capsule,delayed release(DR/EC) 40 mg PO DAILY 30 Days Qty: 30 RF: 0 lidocaine 5 % adhesive patch,medicated 1 patch topical DAILY Qty: 15 RF: 0 No Action omeprazole 20 mg Capsule,Delayed Release(Dr/Ec) 20 mg PO DAILY RF: 0 fluticasone propionate 50 mcg/actuation [place],Suspension 1 spray INTRANASAL DAILY RF: 0 loratadine 10 mg Tablet 10 mg PO DAILY RF: 0 melatonin 1 mg Tablet 1 mg PO BEDTIME PRN (Reason: Insomnia) RF: 0 hydrocodone-acetaminophen 5-325 mg tablet 1 tab PO Q4-6H PRN (Reason: pain) Qty: 5 RF: 0 naproxen sodium [Anaprox DS] 550 mg tablet 550 mg PO BID PRN (Reason: Pain) RF: 0 cyclobenzaprine 5 mg tablet 10 mg PO BEDTIME RF: 0 gabapentin 300 mg capsule 300 mg PO BID RF: 0 albuterol sulfate 90 mcg/actuation HFA aerosol inhaler 2 puff inhalation Q6H PRN (Reason: Shortness Of Breath Or Wheezing) RF: 0 cholecalciferol (vitamin D3) 10 mcg (400 unit) capsule 10 mcg PO DAILY RF: 0 Referrals: Micheal Ahumada MD [Physician] - 2 days Interventions: ED Discharge Assessment Last Done: 07/30/21 21:21 Discharge Date/Time: 07/30/21 21:22 Print Language: Nepalese
[2021-07-30 18:03] VITALS: BP 134/84; PULSE 96; RESP 18; TEMP 37.4; O2SAT 99
--- NOTE | 2021-07-30 18:25 | ECG_ITS ---
Test Reason : HYPOTENSION Blood Pressure : / mmHG Vent. Rate : 090 BPM Atrial Rate : 090 BPM P-R Int : 114 ms QRS Dur : 080 ms QT Int : 384 ms P-R-T Axes : 079 058 050 degrees QTc Int : 469 ms Normal sinus rhythm Nonspecific T wave abnormality Anterior leads Abnormal ECG When compared with ECG of 17-NOV-2018 13:56, No significant change was found Referred By: Lola Friedman Electronically Signed By:DIVYA CUEVAS MD
[2021-07-30] MEDS: 0.9 % Sodium Chloride 1,000 ML 999 ML IV (18:51)
[2021-07-30] MEDS: iohexoL 350 MG/ML 100 ML INFUS..BTL IV (19:17)
[2021-07-30 19:18] LABS: Troponin-I High Sensitivity < 3.5 ng/L (<3.5-17.0)
[2021-07-30] MEDS: ondansetron HCL 4 MG/2 ML VIAL IVPUSH (19:43)
[2021-07-30] MEDS: Morphine Sulfate 4 MG/ML CARTRIDGE IVPUSH (19:43)
[2021-07-30 20:00] VITALS: BP 140/91; PULSE 80; RESP 16; O2SAT 100
[2021-07-30 20:39] VITALS: BP 145/96; PULSE 78; RESP 16
[2021-07-30] MEDS: Lidocaine HCl Viscous 2 % 15 ML SOLUTION MUCOUS MEM (20:41)
[2021-07-30] MEDS: Magnesium Hydrox/Alum Hydrox 30 ML ORAL.SUSP PO (20:41)
[2021-07-30 21:21] VITALS: BP 145/96; PULSE 78; RESP 16; O2SAT 100
== END 2021-07-30 21:22 | disposition home or self-care (01) ==
PROVIDERS: Physician Assistant; Emergency Provider Emergency Medicine Emergency Medical Services; PCP Family Medicine
DX: R07.89 Other chest pain (principal); R10.13 Epigastric pain; J45.909 Unspecified asthma, uncomplicated; Z79.899 Other long term (current) drug therapy
CPT/HCPCS: 36415; 71045; 74177; 80048; 80076; 81001; 81003; 81025; 83690; 84484; 85025; 93005; 96361; 96374; 96375; 99284; J2270; J2405; Q9967

== ENCOUNTER 2021-08-21 08:25 | Outpatient (REF) | payer MEDICAID, SELFPAY ==
--- NOTE | ~2021-08-21 | MM_ITS ---
EXAMINATION: MM SCREENING DIGITAL BREAST TOMOSYNTHESIS, BILATERAL CLINICAL INFORMATION: Screening. Asymptomatic. Family history breast cancer, sister. The lifetime risk of breast cancer based on the Tyrer-Cuzick Model is 17%. COMPARISON: Mammography: 08/19/2020, 08/14/2019, 08/12/2018; MR breasts 08/10/2020, MR breasts targeting 09/06/2020. TECHNIQUE: Digital breast tomosynthesis is performed in both the craniocaudal and mediolateral oblique views along with computer-aided detection (CAD). Synthesized 2D images are generated from the tomosynthesis. FINDINGS: The breasts are heterogeneously dense, which may obscure small masses (ACR BI-RADS breast composition Category c). Parenchymal pattern is similar to prior studies. There is no developing density or interval mass or architectural abnormality. Again, there are numerous bilateral punctate round and some larger round calcifications scattered throughout both breasts. The axilla and skin contours are unremarkable. No significant changes. MM/MM tomosynthesis screening BI IMPRESSION: No mammographic evidence of malignancy. ASSESSMENT: BI-RADS 2: Benign RECOMMENDATION: Routine annual mammography screening. This patient's information was entered into a reminder system with a target due date for their next mammogram.
== END 2021-08-21 08:26 | disposition home or self-care (01) ==
LOC: HO.MAMMO 08:25
PROVIDERS: Visit Provider Family Medicine
DX: Z12.31 Encounter for screening mammogram for malignant neoplasm of breast (principal)
CPT/HCPCS: 77063; 77067

== ENCOUNTER 2021-08-31 10:56 | Outpatient (REF) | payer MEDICAID, SELFPAY ==
--- NOTE | ~2021-08-31 | MR_ITS ---
EXAMINATION: MR BREAST WITHOUT AND WITH CONTRAST, BILATERAL CLINICAL INFORMATION: High-risk screening. COMPARISON: MRI 08/10/2020, 08/07/2019 TECHNIQUE: Imaging was performed with a dedicated breast coil. Prior to the administration of contrast, bilateral axial T1 and bilateral axial T2 weighted sequences were obtained. After the uneventful administration of?7 mL of Gadavist, dynamic contrast-enhanced VIBRANT series through the breasts in the axial plane were performed. Subtracted images were performed and reviewed. A delayed sagittal sequence through both breasts was acquired. Additionally, CAD post-processing, including maximum intensity projections, 3-D reconstructions and kinetic analysis, were performed an independent workstation and reviewed by the interpreting radiologist is a portion of this exam. FINDINGS: The patient's heterogeneously dense fibroglandular tissue demonstrates moderate background enhancement. LEFT BREAST: No suspicious masslike or non-masslike enhancement. No abnormal skin thickening or nipple retraction. No abnormal architectural distortion. Review of the T2 weighted images demonstrates no fibrocystic changes or dilated ducts. Review of kinetic images reveals no additional findings. RIGHT BREAST: No suspicious masslike or non-masslike enhancement. No abnormal skin thickening or nipple retraction. No abnormal architectural distortion. Review of the T2 weighted images demonstrates no fibrocystic changes or dilated ducts. Review of kinetic images reveals no additional findings. There is no suspicious internal mammary chain or axillary adenopathy. Limited views of the chest and abdomen are unremarkable. MR/MR breast BI wo/w con IMPRESSION: No MR specific evidence of malignancy. ASSESSMENT: LEFT BREAST: BI-RADS 1-Negative RIGHT BREAST: BI-RADS 1-Negative RECOMMENDATIONS: Clinical follow-up. Continued annual mammographic surveillance. Further breast MRI as risk factors dictate.
== END 2021-08-31 10:57 | disposition home or self-care (01) ==
LOC: HO.MRI 10:56
PROVIDERS: Visit Provider Family Medicine
DX: R92.8 Other abnormal and inconclusive findings on diagnostic imaging of breast (principal); Z80.3 Family history of malignant neoplasm of breast
CPT/HCPCS: 77049; A9585

== ENCOUNTER 2022-08-27 09:41 | Outpatient (REF) | payer MEDICAID, SELFPAY ==
--- NOTE | ~2022-08-27 | MM_ITS ---
EXAMINATION: MM SCREENING DIGITAL BREAST TOMOSYNTHESIS, BILATERAL CLINICAL INFORMATION: Screening. Asymptomatic. Family history premenopausal breast cancer, sister. The lifetime risk of breast cancer based on the Tyrer-Cuzick Model is 17%. COMPARISON: Mammography: 08/21/2021, 08/19/2020, 08/14/2019; MRI breasts 08/31/2021 TECHNIQUE: Digital breast tomosynthesis is performed in both the craniocaudal and mediolateral oblique views along with computer-aided detection (CAD). Synthesized 2D images are generated from the tomosynthesis. FINDINGS: The breasts are heterogeneously dense, which may obscure small masses (ACR BI-RADS breast composition Category c). Parenchymal pattern is similar to prior studies and there is no interval mass, developing density, or architectural abnormality. Again, there are with diffuse calcifications in both breasts, greater in number on left. No interval suspicious calcifications. The axilla and skin contours are unremarkable. No significant changes. MM/MM tomosynthesis screening BI IMPRESSION: No mammographic evidence of malignancy. ASSESSMENT: BI-RADS 2: Benign RECOMMENDATION: Routine annual mammography screening. This patient's information was entered into a reminder system with a target due date for their next mammogram.
== END 2022-08-27 09:42 | disposition home or self-care (01) ==
LOC: HO.MAMMO 09:41
PROVIDERS: PCP Family Medicine; Visit Provider Family Medicine
DX: Z12.31 Encounter for screening mammogram for malignant neoplasm of breast (principal)
CPT/HCPCS: 77063; 77067

== ENCOUNTER → 2022-09-24 14:55 | Outpatient (BNVA) | payer MEDICAID, SELFPAY | PROVIDERS: PCP Family Medicine; Visit Provider Orthopaedic Surgery | DX: M18.11 Unilateral primary osteoarthritis of first carpometacarpal joint, right hand (principal); Z86.69 Personal history of other diseases of the nervous system and sense organs | CPT/HCPCS: 99212 ==

== ENCOUNTER → 2023-02-18 13:09 | Outpatient (BNVA) | payer MEDICAID, SELFPAY | PROVIDERS: PCP Family Medicine; Visit Provider Physician Assistant | DX: K21.9 Gastro-esophageal reflux disease without esophagitis (principal) | CPT/HCPCS: 99202 ==

== ENCOUNTER 2023-08-24 08:37 | Emergency (ER) | payer MEDICAID, SELFPAY ==
--- NOTE | ~2023-08-24 | CT_ITS ---
EXAMINATION: CT ABDOMEN AND PELVIS WITHOUT CONTRAST CLINICAL INFORMATION: Left lower quadrant pain. Rule out diverticulitis. COMPARISON: Previous CT of the abdomen and pelvis over 2020 TECHNIQUE: Multidetector volumetric imaging was performed from the superior aspect of the liver through the pubic symphysis. Sagittal and coronal reformatted images were obtained on the technologist's workstation. This CT examination was performed using dose optimization techniques as appropriate, variously including the following: *Automated exposure control *Adjustment of mA and/or kV according to patient size (this includes techniques or standardized protocols for targeted exams where dose is matched to indication/reason for exam; i.e. extremities or head) *Use of iterative reconstruction technique DLP: 488 mGy-cm FINDINGS: LUNG BASES: The visualized lung bases are unremarkable. LIVER, GALLBLADDER, AND BILIARY TREE: The liver is normal in size, shape, and attenuation. No focal hepatic lesion or biliary ductal dilatation is present. The gallbladder is unremarkable with no evidence of radiopaque gallstones, gallbladder wall thickening, or obvious pericholecystic inflammatory changes. PANCREAS: Unremarkable. SPLEEN: Unremarkable. ADRENAL GLANDS: Unremarkable. KIDNEYS AND URETERS: The kidneys are normal in size, shape, and attenuation. No hydronephrosis, hydroureter, or calculi seen. No perinephric stranding. BLADDER: Unremarkable. GASTROINTESTINAL TRACT: There is question of mild colitis of the left colon with wall thickening and edema and trace thickening of the lateral paraconal fascia. The small and large bowel are otherwise unremarkable. No evidence of diverticulosis or diverticulitis. The appendix is unremarkable. ABDOMINAL WALL: Postsurgical changes to the lower abdominal wall. Small umbilical hernia containing fat. LYMPH NODES: Normal. VASCULAR: Unremarkable. PELVIC VISCERA: Unremarkable. OSSEOUS STRUCTURES: Unremarkable. CT/CT abdomen pelvis wo IV con IMPRESSION: Question mild colitis of the left colon. Fleischner guidelines were followed.
[2023-08-24 08:47] VITALS: BP 154/110; PULSE 103; RESP 18; TEMP 36.7; O2SAT 100
--- NOTE | 2023-08-24 09:27 | ED.ABDPAIN ---
HPI - Abdominal Pain General Chief Complaint: Abdominal Pain Stated Complaint: L side pain/ diarrhea Time Seen by Provider: 08/24/23 09:03 Source: patient Mode of arrival: ambulatory Limitations: no limitations History of Present Illness HPI narrative: 43-year-old female came in for evaluation of no abdominal pain. Patient started to have left lower abdominal pain since yesterday with nonbloody watery diarrhea, no fever, no chills, no sick contacts, no bad food exposure, no recent travel. Patient also been having runny nose, sneezing and coughing for 1 day. Sexually active no dysuria or frequency urination, no vaginal discharge. History is significant for x3. Related Data Home Medications Medication Instructions Recorded Confirmed albuterol sulfate 90 mcg/actuation 2 puff inhalation Q6H PRN 07/22/20 08/03/22 aerosol inhaler Shortness Of Breath Or Wheezing cyclobenzaprine 5 mg tablet 10 mg PO BEDTIME 07/22/20 08/03/22 gabapentin 300 mg capsule 300 mg PO BID 07/22/20 08/03/22 fluticasone propionate 50 1 spray intranasal DAILY 08/04/20 08/03/22 mcg/actuation nasal spray,suspension loratadine 10 mg tablet 10 mg PO DAILY 08/04/20 08/03/22 melatonin 1 mg tablet 1 mg PO BEDTIME PRN Insomnia 08/04/20 08/03/22 omeprazole 20 mg capsule,delayed 20 mg PO BID 08/04/20 08/03/22 release levothyroxine 20 mcg/mL oral 25 mcg PO DAILY 02/01/22 08/03/22 solution methimazole 10 mg tablet 10 mg PO DAILY 02/18/23 Previous Rx's Medication Instructions Recorded bisacodyl 5 mg tablet,delayed 10 mg (2 x 5 mg) PO ONCE 02/18/23 release (Dulcolax (bisacodyl)) colonoscopy prep 1 day #2 tabs pantoprazole 20 mg tablet,delayed 40 mg (2 x 20 mg) PO ONCE PRN acid 02/18/23 release reflux 30 days #60 tabs polyethylene glycol 3350 17 238 g PO ONCE PRN laxative effect 02/18/23 gram/dose oral powder (Miralax) 1 day #238 grams Allergies Allergy/AdvReac Type Severity Reaction Status Date / Time aspirin Allergy Intermediate itching Verified 08/24/23 08:46 Penicillins Allergy Unknown Verified 08/24/23 08:46 pollen Allergy Intermediate Sneezing Uncoded 02/01/23 13:18 Review of Systems Review of Systems All other systems are reviewed and are negative Constitutional: Reports as per HPI and Reports no additional constitutional complaints Eyes: Reports as per HPI and Reports no additional eye complaints Reports system reviewed and no additional complaints, except as documented Cardiovascular: Reports as per HPI and Reports no additional cardiovascular complaints Respiratory: Reports as per HPI and Reports no additional respiratory complaints Gastrointestinal: Reports as per HPI and Reports no additional gastrointestinal complaints Genitourinary: Reports no additional female genitourinary complaints Musculoskeletal: Reports no additional musculoskeletal complaints Skin/Breast: Reports system reviewed and no additional complaints, except as docu Psychiatric: Reports no additional psychiatric complaints Endocrine: Reports no additional endocrine complaints Hematologic/Lymphatic: Reports no additional hematologic/lymphatic complaints Allergic/Immunologic: Reports no additional allergic/immunologic complaints Reports system reviewed and no additional complaints, except as documented and Reports Abnormal speech present [facility] Past Medical History Medical History Shoulder pain GERD (gastroesophageal reflux disease) Recurrent urinary tract infection History of kidney stones Depression Anxiety IBS (irritable bowel syndrome) Anemia Acid reflux Asthma History of thyroid disorder Surgical History Status post endometrial ablation Hx of lithotripsy History of carpal tunnel surgery of left wrist History of lumpectomy of left breast History of bilateral tubal ligation H/O section Family History Family History Father Diabetes mellitus Mother Stroke Diabetes mellitus HTN (hypertension) Family/Other Breast cancer Ovarian cancer Uterine cancer Son No problems noted. Son No problems noted. Daughter No problems noted. Social History Social History Household Members: Children Housing: Apartment Are you a primary pediatric acute care unit nurse to a significant other at home: No Do you presently have visiting nurse or other home services: No Alcohol intake: never Patient Tobacco Use Status: Never used Tobacco Second Hand Smoke Exposure: Yes Substance Use Type: Marijuana Advance Directives: No Advance Directives Information Provided: Yes service: No Current occupational status: employed Sexual orientation: Straight/Heterosexual Gender identity: Female Physical Exam ED Vital Signs: Vital Signs - 24 hr 08/24/23 08:47 08/24/23 10:00 Temperature 98.1 F Pulse Rate 103 H 86 Respiratory Rate 18 16 Blood Pressure 154/110 H 127/70 Pulse Oximetry 100 100 Oxygen Delivery Method Room Air Room Air BMI result Body Mass Index 30.0 Vital signs have been reviewed and appear to be correct. Blood pressure elevated. Heart rate normal. Respiratory rate normal. Temperature normal. Oxygen saturation normal. Appearance: Alert. Oriented X3. No acute distress. Head: Normal external exam. Normocephalic. Atraumatic. No Wilson signs noted. No raccoon eyes noted Eyes: PERRLA. EOMI. Conjunctiva and sclera normal. Eyelids normal. ENT: TM's Normal. Pharynx normal. Uvula midline. Moist mucous membranes. No trismus noted. No drooling noted. No muffled voice noted. Neck: Normal inspection. Neck supple. FROM. No adenopathy. Thyroid Normal. No meningeal signs. No neck mass noted. CVS: Normal heart rate and rhythm. Heart sound normal. No murmurs noted. Pulses normal throughout. Respiratory: No respiratory distress. Painless inspiration. Breath sounds normal. No wheezes/rales/rhonchi noted. Chest nontender. No accessory muscle usage noted or decreased air movement noted. Abdomen: Soft , left lower quadrant tenderness, no guarding, no rebound tenderness. Bowel sounds normal in all 4 quadrants. No distention noted. No organomegaly noted. No visible injury noted. Back: No CVA tenderness. Full range of motion noted. Skin: Skin warm and dry. Normal skin color. Normal skin turgor. No rashes/lesions/lacerations noted. Extremities: No lower extremity edema. Extremities exhibit normal range of motion. Extremities nontender. Neuro: Oriented X 3. Cranial nerve exam: II-XII are grossly intact No motor deficit. No sensory deficit. Reflexes normal. Course Reevaluation(s) Reevaluation #1: left lower abdominal pain with diarrhea, normal wbc's, CT is consistent with possible colitis. Patient was instructed to follow up with GI, guaiac is positive for trace of blood and stable H&H. Time: 11:20 Medical Decision Making Differential Diagnosis Differential Diagnoses: The differential diagnosis associated with the presentation includes ( Colitis, food poisoning, gastritis, appendicitis, severe anemia, electrolyte abnormality, UTI, .) Admission/Observation Consideration of admission/observation: Escalation of care including admission/observation considered Lab Data MDM Lab Attestation statement: I reviewed the patient's lab results. 08/24/23 09:55 08/24/23 09:55 Labs: Lab Results 08/24/23 08/24/23 Range/Units 09:55 10:03 WBC 7.1 (4.8-10.8) X10*3/uL RBC 4.40 (4.20-5.50) X10*6/uL Hgb 13.2 (12.0-16.0) g/dl Hct 39.5 (37.0-47.0) % MCV 89.8 (80.0-98.0) fL MCH 30.0 (27.0-33.0) pg MCHC 33.4 (31.0-35.0) g/dl RDW 12.6 (11.0-16.0) % Plt Count 285 (160-400) X10*3/uL MPV 10.6 (9.4-12.3) fL Immature Gran % (Auto) 0.4 (0.0-0.4) % Neut % (Auto) 81.5 H (45-73) % Lymph % (Auto) 13.7 L (20-40) % [place] % (Auto) 4.1 (2-11) % Eos % (Auto) 0.0 (0-4) % Baso % (Auto) 0.3 (0-2) % Lymph # (Auto) 1.0 L (1.2-4.9) X10*3/uL [place] # (Auto) 0.3 (0.1-1.2) X10*3/uL Eos # (Auto) 0.0 (0.0-0.4) X10*3/uL Baso # (Auto) 0.0 (0.0-0.2) X10*3/uL Abs Immat Gran (auto) 0.03 (0.00-0.03) X10*3/uL Absolute Neuts (auto) 5.8 (2.0-8.3) x10*3/uL Absolute Nucleated RBC 0.000 (0.0-0.012) X10*3/uL Nucleated RBC % (auto) 0.0 (0.0-0.2) /100WBC Sodium 138 (135-145) mmol/L Potassium 4.1 (3.3-5.1) mmol/L Chloride 104 (96-108) mmol/L Carbon Dioxide 27 (22-29) mmol/L Anion Gap 11 L (12-20) BUN 10 (9-16) mg/dL Creatinine 0.86 (0.5-1.4) mg/dL Estim Creat Clear Calc 81.0 Estimated GFR > 60 Random Glucose 115 (60-115) mg/dL Calcium 9.6 D (8.4-10.2) mg/dL Total Bilirubin 0.4 (0.0-1.0) mg/dL Direct Bilirubin 0.2 (0.0-0.5) mg/dL AST 25 (5-31) U/L ALT 23 (0-31) U/L Alkaline Phosphatase 52 (39-117) U/L Total Protein 8.0 (6.5-8.0) g/dL Albumin 4.5 (3.5-5.0) g/dL Lipase 15 (8-78) U/L Urine Color Yellow Urine Appearance Clear Urine pH 7.5 (5.0-9.0) Ur Specific [place] 1.015 (1.005-1.025) Urine Protein Negative (Neg-Trace) mg/dL Urine Glucose (UA) Negative (Negative) mg/dL Urine Ketones Negative (Negative) mg/dL Urine Blood Negative (Negative) Urine Nitrite Negative (Negative) Ur Leukocyte Esterase Negative (Negative) Stool Occult Blood POSITIVE (NEGATIVE) Independent Interpretation I performed an independent interpretation of an: CT Scan ( Question mild colitis of the left colon.) Radiology Impression Discussion of test interpretation with radiology: I have reviewed the radiologist's reading. Medications Administered Discontinued Medications Generic Name Dose Route Start Last Admin Trade Name Freq PRN Reason Stop Dose Admin Sodium Chloride 1,000 mls @ 999 mls/hr 08/24/23 09:23 08/24/23 11:00 Ns IV 08/24/23 10:23 Infused .Q1H1M ONE Infusion Loperamide HCl 2 mg 08/24/23 09:23 08/24/23 10:12 Loperamide Hcl 2 Mg Capsule PO 08/24/23 09:24 2 mg ONCE ONE Administration Discharge Plan Discharge Clinical Impression: Colitis Abdominal pain Qualifiers: Abdominal location: left lower quadrant Qualified Code(s): R10.32 - Left lower quadrant pain Patient Disposition: Home, Self-Care Instructions: Colitis (ED) Prescriptions: No Action omeprazole 20 mg Capsule,Delayed Release(Dr/Ec) 20 mg PO BID fluticasone propionate 50 mcg/actuation [place],Suspension 1 spray INTRANASAL DAILY loratadine 10 mg Tablet 10 mg PO DAILY melatonin 1 mg Tablet 1 mg PO BEDTIME PRN (Reason: Insomnia) levothyroxine 20 mcg/mL Solution 25 mcg PO DAILY cyclobenzaprine 5 mg tablet 10 mg PO BEDTIME gabapentin 300 mg capsule 300 mg PO BID albuterol sulfate 90 mcg/actuation HFA aerosol inhaler 2 puff inhalation Q6H PRN (Reason: Shortness Of Breath Or Wheezing) methimazole 10 mg tablet 10 mg PO DAILY pantoprazole 20 mg tablet,delayed release (DR/EC) 40 mg PO ONCE PRN (Reason: acid reflux) 30 Days Qty: 60 6RF bisacodyl [Dulcolax (bisacodyl)] 5 mg tablet,delayed release (DR/EC) 10 mg PO ONCE 1 Days Qty: 2 0RF Rx Instructions: Take 2 tablets by mouth at 12:00pm the day before your procedure. polyethylene glycol 3350 [Miralax] 17 gram/dose powder 238 g PO ONCE PRN (Reason: laxative effect) 1 Days Qty: 238 0RF Rx Instructions: Take as directed by mouth the day before your procedure. Referrals: Katie Post MD [Physician] - Rachel Riley MD [Primary Care Provider] - Stand Alone Forms: Work/School Release
[2023-08-24] MEDS: 0.9 % Sodium Chloride 1,000 ML 999 ML IV (09:58)
[2023-08-24 10:00] VITALS: BP 127/70; PULSE 86; RESP 16; O2SAT 100
[2023-08-24 10:00] LABS: MANUAL DIFF FLAG NO
[2023-08-24 10:08] LABS: Basophils Percent Auto 0.3 % (0-2); Hematocrit 39.5 % (37.0-47.0); Hemoglobin 13.2 g/dl (12.0-16.0); Imm Gran Abs Auto 0.03 X10*3/uL (0.00-0.03); Imm Gran Pct Auto 0.4 % (0.0-0.4); Lymphocytes Percent Auto 13.7 % (20-40); Mean Corpuscular HGB Conc 33.4 g/dl (31.0-35.0); Mean Corpuscular Volume 89.8 fL (80.0-98.0); Mean Platelet Volume 10.6 fL (9.4-12.3); Monocytes Absolute Auto 0.3 X10*3/uL (0.1-1.2); Monocytes Percent Auto 4.1 % (2-11); Neutrophils Absolute Auto 5.8 x10*3/uL (2.0-8.3); Neutrophils Percent Auto 81.5 % (45-73); Platelet Count 285 X10*3/uL (160-400); Red Cell Distribution Width 12.6 % (11.0-16.0); White Blood Count 7.1 X10*3/uL (4.8-10.8)
[2023-08-24] MEDS: Loperamide HCl 2 MG CAPSULE PO (10:12)
--- NOTE | 2023-08-24 10:14 | PC.NURSE ---
20g iv inserted RAC, iv fluids started, po med given as documented. vss.
[2023-08-24 10:17] LABS: Appearance Urine Clear; Color Urine Yellow; Glucose Urine UA Negative (Negative); Leukocyte Esterase Urine Negative (Negative); Nitrite Urine Negative (Negative); PH 7.5 (5.0-9.0); Specific Gravity - Urine 1.015 (1.005-1.025); Urine Blood Negative (Negative); Urine Ketones Negative (Negative); Urine Protein Negative (Neg-Trace)
[2023-08-24 10:20] LABS: Alanine Aminotransferase 23 U/L (0-31); Albumin Level 4.5 g/dL (3.5-5.0); Alkaline Phosphatase 52 U/L (39-117); Anion Gap 11 (12-20); Aspartate Amino Transferase 25 U/L (5-31); Bilirubin Direct 0.2 mg/dL (0.0-0.5); Bilirubin Total 0.4 mg/dL (0.0-1.0); Blood Urea Nitrogen 10 mg/dL (9-16); Calcium 9.6 mg/dL (8.4-10.2); Carbon Dioxide 27 mmol/L (22-29); Chloride 104 mmol/L (96-108); Estimated Glomerular Filt Rate > 60; Glucose Random 115 mg/dL (60-115); Lipase 15 U/L (8-78); Potassium 4.1 mmol/L (3.3-5.1); Sodium 138 mmol/L (135-145)
[2023-08-24 10:25] LABS: OBS Int Ctl Valid YES; OBS1 POSITIVE (NEGATIVE)
[2023-08-24 11:43] LABS: UPreg QC Valid YES; Urine Pregnancy NEGATIVE (NEGATIVE)
[2023-08-24 13:09] LABS: Influenza A PCR NEGATIVE (Negative); Influenza B PCR NEGATIVE (Negative); Resp Syncy Virus RNA Qual PCR NEGATIVE (Negative); SARS COV2 PCR INHOUSE NEGATIVE (Negative)
[2023-08-24 13:21] VITALS: BP 153/84; PULSE 75; RESP 16; O2SAT 99
== END 2023-08-24 13:24 | disposition home or self-care (01) ==
PROVIDERS: Emergency Provider Emergency Medicine; PCP Family Medicine
DX: K52.9 Noninfective gastroenteritis and colitis, unspecified (principal); R10.32 Left lower quadrant pain; Z20.822 Contact with and (suspected) exposure to COVID-19; Z20.828 Contact with and (suspected) exposure to other viral communicable diseases; F41.9 Anxiety disorder, unspecified; K21.9 Gastro-esophageal reflux disease without esophagitis; F12.90 Cannabis use, unspecified, uncomplicated; Z98.51 Tubal ligation status; Z87.440 Personal history of urinary (tract) infections; Z87.442 Personal history of urinary calculi; Z79.899 Other long term (current) drug therapy
CPT/HCPCS: 0241U; 36415; 74176; 80048; 80076; 81003; 81025; 82272; 83690; 85025; 96360; 99284

== ENCOUNTER → 2023-09-02 10:15 | Outpatient (BNV) | payer MEDICAID, SELFPAY | PROVIDERS: PCP Family Medicine; Visit Provider Radiology Diagnostic Radiology | DX: Z12.31 Encounter for screening mammogram for malignant neoplasm of breast (principal) | CPT/HCPCS: 77063; 77067 ==

== ENCOUNTER 2023-09-02 10:25 | Outpatient (REF) | payer MEDICAID, SELFPAY ==
--- NOTE | ~2023-09-02 | MM_ITS ---
EXAMINATION: MM SCREENING DIGITAL BREAST TOMOSYNTHESIS, BILATERAL CLINICAL INFORMATION: Screening. Asymptomatic. COMPARISON: Mammography: This study is compared with prior exams dating back to 2019. TECHNIQUE: Digital breast tomosynthesis is performed in both the craniocaudal and mediolateral oblique views along with computer-aided detection (CAD). Synthesized 2D images are generated from the tomosynthesis. FINDINGS: The breasts are heterogeneously dense, which may obscure small masses (ACR BI-RADS breast composition Category c). There is an area of focal asymmetry in the upper outer quadrant of the left breast for which additional mammographic and targeted sonographic imaging is advised. This area consistent to 3 well-circumscribed focal mass as which may represent benign intramammary lymph node tissue or cysts. Because of the conspicuity of the finding on the current mammogram, the additional imaging will be helpful in ruling out an underlying abnormality. In the right breast, there are no significant masses, abnormal calcifications, or other abnormalities. There are scattered, benign calcifications throughout each breast. MM/MM tomosynthesis screening BI IMPRESSION: Focal asymmetry of the upper outer quadrant of the left breast warrants additional mammographic and targeted sonographic evaluation. No mammographic signs of malignancy right breast. ASSESSMENT: BI-RADS BI-RADS 0 - Incomplete: Needs additional Imaging. RECOMMENDATION: 1. Additional views of the left breast 2. Targeted ultrasound if warranted after review of the additional views. 3. Radiology department staff will contact the patient for additional imaging. Additional Imaging required This examination should not preclude the clinical evaluation of a suspicious palpable abnormality. This patient's information was entered into a reminder system with a target due date for their next mammogram.
== END 2023-09-02 10:26 | disposition home or self-care (01) ==
LOC: HO.MAMMO 10:25
PROVIDERS: PCP Family Medicine; Visit Provider Family Medicine
DX: Z12.31 Encounter for screening mammogram for malignant neoplasm of breast (principal)
CPT/HCPCS: 77063; 77067

== ENCOUNTER 2023-09-24 13:44 | Outpatient (REF) | payer MEDICAID, SELFPAY ==
--- NOTE | ~2023-09-24 | US_ITS ---
EXAMINATION: MM DIAGNOSTIC DIGITAL BREAST TOMOSYNTHESIS, LEFT US BREAST LIMITED, LEFT MAMMOGRAPHY: CLINICAL INFORMATION: Evaluate focal asymmetric density seen upper outer left breast on screening mammography. Family history premenopausal breast cancer, sister. COMPARISON: Mammography: 09/02/2023, 08/27/2022, 08/21/2021, and dating back to 2019. MR breasts 08/31/2021, 08/10/2020. TECHNIQUE: Digital left breast tomosynthesis is performed in the following views: 3-D spot compression left CC and left MLO views, and a full-field 3-D left mediolateral view. FINDINGS: The breasts are heterogeneously dense, which may obscure small masses (ACR BI-RADS breast composition Category c). Diagnostic views demonstrate persistence of the focal asymmetric density in the upper outer left breast, with at least one well-circumscribed mass measuring 1.1 cm which is isodense. This will be evaluated by ultrasound. There are stable diffuse parenchymal calcifications in the left and right breasts. ULTRASOUND: CLINICAL INFORMATION: Evaluate focal asymmetric density seen upper outer left breast on screening mammography. COMPARISON: None. Correlation made with MRI of the breast dated 08/31/2021. TECHNIQUE: Targeted sonographic evaluation was performed using a high frequency linear transducer. Attention was paid to the upper outer quadrant of the left breast. Selected archived documentation. FINDINGS: LEFT BREAST: There are 2 abutting simple cysts present in the 2:00 axis of the left breast, 9 cm from the nipple. Both are anechoic, have good through transmission, and there are circumscribed. The larger measures 1.1 cm in diameter and the smaller measures 0.8 cm in diameter. These findings are benign and a calcified for the mammographic focus of concern. US/US breast LT limited mamm only IMPRESSION: No findings suspicious for malignancy left breast. Focal asymmetric density in the upper outer left breast correlates to 2 abutting simple cysts as detailed above. Findings are benign. Stable benign scattered calcifications suggesting adenosis. Recommend the patient resume routine annual screening mammography. OVERALL ASSESSMENT: Mammography: BI-RADS 2 - Benign Findings Ultrasound: BI-RADS 2 - Benign Findings RECOMMENDATION: 1 year F/U This patient's information was entered into a reminder system with a target due date for their next mammogram.
== END 2023-09-24 13:45 | disposition home or self-care (01) ==
LOC: HO.MAMMO 13:44
PROVIDERS: PCP Family Medicine; Visit Provider Family Medicine
DX: N64.89 Other specified disorders of breast (principal)
CPT/HCPCS: 76642; 77065

== ENCOUNTER → 2023-09-24 14:00 | Outpatient (BNV) | payer MEDICAID, SELFPAY | PROVIDERS: PCP Family Medicine; Visit Provider Radiology Diagnostic Radiology | DX: R92.2 Inconclusive mammogram (principal) | CPT/HCPCS: 76642; 77061; 77065 ==

== ENCOUNTER 2023-10-08 10:58 | Outpatient (REF) | payer MEDICAID, SELFPAY ==
[2023-10-08 13:45] LABS: Cholesterol 211 mg/dL (<200); Estimated Average Glucose 97 mg/dL; HDL Cholesterol 67 mg/dL (>40); LDL Cholesterol Calculated 131 mg/dL (<100); Triglycerides 69 mg/dL (<150)
[2023-10-08 14:14] LABS: Reflex LDLD? No
== END 2023-10-08 10:59 | disposition home or self-care (01) ==
LOC: HO.HHCL 10:58
PROVIDERS: Visit Provider Family Medicine
DX: M25.561 Pain in right knee (principal); M25.562 Pain in left knee; M79.671 Pain in right foot; M79.672 Pain in left foot; G89.29 Other chronic pain; R03.0 Elevated blood-pressure reading, without diagnosis of hypertension
CPT/HCPCS: 36415; 73562; 73630; 80061; 83036

== ENCOUNTER 2023-12-24 13:56 | Outpatient (RCR) | payer MEDICAID, SELFPAY | END 2024-02-26 15:10 | disposition home or self-care (01) | LOC: HO.PT 13:56 | PROVIDERS: PCP Family Medicine; Visit Provider Family Medicine | DX: M25.561 Pain in right knee (principal); M25.562 Pain in left knee; G89.29 Other chronic pain | CPT/HCPCS: 97110; 97161; 97535 ==

== ENCOUNTER 2023-12-26 07:26 | Day surgery (SDC) | payer MEDICAID, SELFPAY ==
--- NOTE | 2023-12-25 08:41 | HO.ANESPROP2 ---
Documented by User: Ekta Eisenberg NP 12/25/23 08:43 HPI - Anesthesia Eval Consult details Narrative: 43yo F for Upper Endoscopy and Colonoscopy [facility] Active Problems Active Problems: All Active Problems (Updated 08/25/23 @ 00:00 by Pradeep Munroe) Acid reflux (Acute) Arthritis of carpometacarpal (CMC) joint of right thumb (Acute) Numbness of left hand (Acute) Carpal tunnel syndrome of right wrist (Acute) Shoulder pain (Acute) Menorrhagia (Acute) FH: breast cancer in first degree relative (Acute) Iron deficiency anemia (Acute) Abnormal MRI, breast (Acute) Well woman exam with routine gynecological exam (Acute) Potential exposure to STD (Acute) Past Medical History Medical History Shoulder pain GERD (gastroesophageal reflux disease) Recurrent urinary tract infection History of kidney stones Depression Anxiety IBS (irritable bowel syndrome) Anemia Acid reflux Asthma History of thyroid disorder Family History Family History Father Diabetes mellitus Mother Stroke Diabetes mellitus HTN (hypertension) Family/Other Breast cancer Ovarian cancer Uterine cancer Son No problems noted. Son No problems noted. Daughter No problems noted. Family history of problems with anesthesia: No Surgical History Surgical History Status post endometrial ablation Hx of lithotripsy History of carpal tunnel surgery of left wrist History of lumpectomy of left breast History of bilateral tubal ligation H/O section History of Problems with Anesthesia: No Social History Social History Household Members: Children Housing: Apartment Are you a primary healthcare corporate account director to a significant other at home: No Do you presently have visiting nurse or other home services: No Alcohol intake: never Patient Tobacco Use Status: Former Tobacco user Quit Date: 5 years Second Hand Smoke Exposure: Yes Use of substances other than those prescribed or required for medical reasons: Yes Substance Use Type: Marijuana Substance Use Type Other:: lst smoked 12 a midnoc Are you DNR?: No Advance Directives: No Advance Directives Information Provided: Yes service: No Current occupational status: employed Sexual orientation: Straight/Heterosexual Gender identity: Female Meds Allergies Allergy/AdvReac Type Severity Reaction Status Date / Time aspirin Allergy Intermediate itching Verified 08/24/23 08:46 Penicillins Allergy Unknown Verified 08/24/23 08:46 pollen Allergy Intermediate Sneezing Uncoded 02/01/23 13:18 Home Medications Medication Instructions Recorded Confirmed Last Taken Type albuterol sulfate 90 mcg/actuation 2 puff inhalation Q6H PRN 07/22/20 12/24/23 Unknown History aerosol inhaler Shortness Of Breath Or Wheezing cyclobenzaprine 5 mg tablet 10 mg PO BEDTIME 07/22/20 12/24/23 Unknown History gabapentin 300 mg capsule 300 mg PO BID 07/22/20 12/24/23 Unknown History fluticasone propionate 50 1 spray intranasal DAILY 08/04/20 12/24/23 Unknown History mcg/actuation nasal spray,suspension loratadine 10 mg tablet 10 mg PO DAILY 08/04/20 12/24/23 12/16/20 History melatonin 1 mg tablet 1 mg PO BEDTIME PRN Insomnia 08/04/20 12/24/23 Unknown History methimazole 10 mg tablet 10 mg PO DAILY 02/18/23 12/24/23 Unknown History Exam Height,Weight and Vital Signs: Height 5 ft 3 in Pertinent Lab Results Pertinent Lab Results: Laboratory Tests 08/24/23 09:55 WBC 7.1 Hgb 13.2 Hct 39.5 Plt Count 285 Sodium 138 Potassium 4.1 Chloride 104 Carbon Dioxide 27 BUN 10 Creatinine 0.86 Assessment and Plan Assessment Anesthesia Assessment: Chart Reviewed Final Anesthetic Review Family History of Problems with Anesthesia: No History of Problems with Anesthesia: No Documented by User: Alexandra Phillips MD 12/26/23 08:08 [facility] Past Medical History Medical History Shoulder pain GERD (gastroesophageal reflux disease) Recurrent urinary tract infection History of kidney stones Depression Anxiety IBS (irritable bowel syndrome) Anemia Acid reflux Asthma History of thyroid disorder Family History Family History Father Diabetes mellitus Mother Stroke Diabetes mellitus HTN (hypertension) Family/Other Breast cancer Ovarian cancer Uterine cancer Son No problems noted. Son No problems noted. Daughter No problems noted. Surgical History Surgical History Status post endometrial ablation Hx of lithotripsy History of carpal tunnel surgery of left wrist History of lumpectomy of left breast History of bilateral tubal ligation H/O section Social History Social History Household Members: Children Housing: Apartment Are you a primary healthcare corporate account director to a significant other at home: No Do you presently have visiting nurse or other home services: No Alcohol intake: never Patient Tobacco Use Status: Former Tobacco user Quit Date: 5 years Second Hand Smoke Exposure: Yes Use of substances other than those prescribed or required for medical reasons: Yes Substance Use Type: Marijuana Substance Use Type Other:: lst smoked 12 a midnoc Are you DNR?: No Advance Directives: No Advance Directives Information Provided: Yes service: No Current occupational status: employed Sexual orientation: Straight/Heterosexual Gender identity: Female Meds Allergies Allergy/AdvReac Type Severity Reaction Status Date / Time aspirin Allergy Intermediate itching Verified 08/24/23 08:46 Penicillins Allergy Unknown Verified 08/24/23 08:46 pollen Allergy Intermediate Sneezing Uncoded 02/01/23 13:18 Home Medications Medication Instructions Recorded Confirmed Last Taken Type albuterol sulfate 90 mcg/actuation 2 puff inhalation Q6H PRN 07/22/20 12/24/23 Unknown History aerosol inhaler Shortness Of Breath Or Wheezing cyclobenzaprine 5 mg tablet 10 mg PO BEDTIME 07/22/20 12/24/23 Unknown History gabapentin 300 mg capsule 300 mg PO BID 07/22/20 12/24/23 Unknown History fluticasone propionate 50 1 spray intranasal DAILY 08/04/20 12/24/23 Unknown History mcg/actuation nasal spray,suspension loratadine 10 mg tablet 10 mg PO DAILY 08/04/20 12/24/23 12/16/20 History melatonin 1 mg tablet 1 mg PO BEDTIME PRN Insomnia 08/04/20 12/24/23 Unknown History methimazole 10 mg tablet 10 mg PO DAILY 02/18/23 12/24/23 Unknown History Exam Airway Mallampati Class: II TM Dist: >3cm Neck ROM: Full Heart: rrr Lungs: cta Assessment and Plan Assessment Anesthesia Assessment: Anesthesia Plan Discussed Final Anesthetic Review NPO: Yes ASA Class: II Final Preanesthetic Review: No Changes in Pt Med Stat, Meds/Allgs Chart Reviewed, Consent Obtained/Reviewed and Anes Risks/Benef Reviewed Patient Risk: Low Procedure Risk: Low Anesthetic Plan Anesthetic Plan: MAC: Disposition: Standard PACU
[2023-12-26 07:32] VITALS: BP 135/88; PULSE 81; RESP 18; TEMP 36.8; O2SAT 99; BMI 29.2
[2023-12-26] MEDS: Lactated Ringers 1,000 ML 100 ML IVCONT (08:08)
--- NOTE | 2023-12-26 08:12 | P.HPSUR_ITS ---
Pre-Procedural Eval Section A - 24 Hr Update-Section A only Date of Service: 12/26/23 Section B - Complete if H&P > 30 days Chief Complaint: Gastro-esophageal reflux disease without esophagit Details of Present Illness: colon screening, FH of CRC sister Relevant Family History (Specify if Yes): Yes Relevant Social History: Other (specify) (THC) Present Medications: see Short Stay Collaborative assessment Medical History: Significant History (Shoulder pain GERD (gastroesophageal reflux disease) Recurrent urinary tract infection History of kidney stones Depression Anxiety IBS (irritable bowel syndrome) Anemia Acid reflux Asthma History of thyroid disorder) History of Previous Operations: Relevant previous surgery/procedure and date(s) (Status post endometrial ablation Hx of lithotripsy History of carpal tunnel surgery of left wrist History of lumpectomy of left breast History of bilateral tubal ligation H/O section) Allergies: Allergies Allergy/AdvReac Type Severity Reaction Status Date / Time aspirin Allergy Intermediate itching Verified 08/24/23 08:46 Penicillins Allergy Unknown Verified 08/24/23 08:46 pollen Allergy Intermediate Sneezing Uncoded 02/01/23 13:18 Review of Systems Sugical H&P ROS: Negative: Constitution, Cardiovascular, Respiratory, Neurological, Psychiatric, Hem-Onc, Allergic/Immunologic, Gastrointestinal, Genitourinary, Musculoskeletal, Integumentary, Endocrine and Eyes/Ears/Nose/Th roat Exam Surgical H&P Exam: Normal: HEENT, Normal: Heart, Normal: Lungs, Normal: Extremities, Normal: Abdomen, Normal: Skin and Normal: Neurological Plan Diagnosis/Plan: Unchanged I have reviewed the history and physical and performed a pertinent physical examination on my patient. No changes have occurred unless specified. Time Spent With Patient Time: Total time managing care of this patient today ____ minutes.
--- NOTE | 2023-12-26 08:44 | P.OP_ITS ---
Operative Note Operative Note Date of Service: 12/26/23 Narrative: Operative Information Procedure Description: EGD, Colonoscopy Indication: GERD, screening, FH of CRC Anesthesia: MAC--had laryngospasm and needed LMA for part of procedure FLEXIBLE TRANSORAL UPPER GASTROINTESTINAL ENDOSCOPY AND COLONOSCOPY PROCEDURE NOTE UPPER ENDOSCOPY Consent: Indications for the procedure and potential complications of bleeding, perforation, reaction to medications and missed diagnosis were discussed with the patient and informed consent was obtained. Instrument: Olympus GIF H 190 J mid size upper endoscope Monitoring: Vital signs and clinical assessment, continuous EKG monitoring, Pulse oximetry, Carbon Dioxide monitoring and blood pressure monitoring were done throughout the procedure. Procedure: The patient was placed in the left lateral decubitis position and pre-procedure medications were administered and a bite block was placed. The endoscope was inserted into the mouth and advanced under direct vision to the third part of duodenum. A careful inspection was made as the upper endoscope was withdrawn including a retroflexed examination of the proximal stomach; Findings and interventions are described below. Findings: Larynx:normal Esophagus: GE junction at 32 cm, diaphragm hiatus at 37 cm, consistent with 5 cm sliding hiatal hernia Stomach: Patchy erythema and few erosions antrum . Biopsies were obtained. Grade 3 flap valve on retroflexed examination of the cardia with patulous LES Duodenum: Normal bulb and descending duodenum, Intervention: Biopsies as noted above, COLONOSCOPY Instrument: Olympus variable stiffness pediatric scope 190L Colonoscopy Monitoring: Vital signs and clinical assessment, continuous EKG monitoring, Pulse oximetry, Carbon Dioxide monitoring and blood pressure monitoring were done throughout the procedure. Colon withdrawal time was 10 minutes. Procedure: The patient was placed in the left lateral decubitis position and pre-procedure medications were administered. After a digital rectal examination of the ano-rectum, the video colonoscope was inserted into the rectum and advanced through the colon to the cecum/TI. The colonoscope was slowly withdrawn in a retrograde panoramic fashion and the colon mucosa was carefully examined including a retroflexed view of the rectum. Findings and interventions are described below. Procedure Difficulty:moderate Findings: Terminal Ileum-normal, bx taken Cecum: granularity and few micro abscesses, bx taken Ascending Colon: normal Transverse Colon -normal Descending Colon:normal Sigmoid Colon: normal Rectum: Retroflexion with small internal hemorrhoids, grade I Anorectum - normal Colon preparation: [place] Bowel Preparation Scale Right colon; 2 Transverse colon: 2 Left colon; 2 (0 = Unprepared colon segment with mucosa not seen due to solid stool that cannot be cleared. 1 = Portion of mucosa of the colon segment seen, but other areas of the colon segment not well seen due to staining, residual stool and/or opaque liquid. 2 = Minor amount of residual staining, small fragments of stool and/or opaque liquid, but mucosa of colon segment seen well. 3 = Entire mucosa of colon segment seen well with no residual staining, small fragments of stool or opaque liquid) Impression and Post Procedure Diagnosis: Endoscopy Findings: hiatal hernia gastritis Colonoscopy Findings: non specific colitis internal hemorrhoids Plan: Await Pathology results Repeat Colonoscopy in 5 years due to FH of CRC or earlier if clinically indicated High fiber diet leaflet avoid straining at stool, epsom salts and sitz bath, anusol supps or cream Reflux precautions, consider referral for surgical repair of hernia Above findings were reviewed with the patient and relevant handouts were provided if indicated.
[2023-12-26 09:27] VITALS: BP 114/55; PULSE 100; RESP 18; TEMP 36.1; O2SAT 97
[2023-12-26 09:42] VITALS: BP 115/67; PULSE 86; RESP 20; TEMP 36.1; O2SAT 97
== END 2023-12-26 10:15 | disposition home or self-care (01) ==
PROVIDERS: PCP Family Medicine; Visit Provider Internal Medicine Gastroenterology
PROC: (CPT 43239; principal; 2023-12-26 09:00)
DX: K29.70 Gastritis, unspecified, without bleeding (principal); K44.9 Diaphragmatic hernia without obstruction or gangrene; K21.9 Gastro-esophageal reflux disease without esophagitis; Z12.11 Encounter for screening for malignant neoplasm of colon; K52.9 Noninfective gastroenteritis and colitis, unspecified; K64.0 First degree hemorrhoids; D64.9 Anemia, unspecified; Z87.442 Personal history of urinary calculi; Z87.440 Personal history of urinary (tract) infections; Z79.899 Other long term (current) drug therapy
CPT/HCPCS: 43239; 45380; 88305; 88313; 88342; J1100; J2704

== ENCOUNTER → 2023-12-26 07:26 | Outpatient (BNV) | payer MEDICAID, SELFPAY | PROVIDERS: PCP Family Medicine; Visit Provider Internal Medicine Gastroenterology | DX: K44.9 Diaphragmatic hernia without obstruction or gangrene (principal); K29.70 Gastritis, unspecified, without bleeding; K52.9 Noninfective gastroenteritis and colitis, unspecified; K64.8 Other hemorrhoids | CPT/HCPCS: 43239; 45380 ==

== ENCOUNTER 2024-01-22 12:01 | Outpatient (AMB) | payer MEDICAID, SELFPAY ==
--- NOTE | 2024-01-22 12:03 | A.OFFVIS_ITS ---
Intake Vital Signs 01/22/24 12:05 Height 5 ft 3 in Weight 166 lb BMI 29.4 BP 134/75 Blood Pressure Location Lt brachial Position Sitting Pulse 83 Intake Visit Reasons: Colonoscopy results Intake Note: Patient follow up for EGD/Colonoscopy results. Patient cc: constipation, denies any other GI issues. Psychology Assistant Required: Yes Psychology Assistant Name: Liv [id number] Accompanied by: Self / Same As Patient Allergies aspirin Allergy (Intermediate, Verified 01/22/24 12:03) itching Penicillins Allergy (Verified 01/22/24 12:03) Unknown pollen Allergy (Intermediate, Uncoded 02/01/23 13:18) Sneezing Medication List - Last Reconciled 01/22/24 by Arielle Michele PA-C albuterol sulfate 90 mcg/actuation 2 puffs inhalation Q6H PRN cyclobenzaprine 10 mg PO BEDTIME fluticasone propionate 50 mcg/actuation 1 spray intranasal DAILY gabapentin 300 mg PO BID loratadine 10 mg PO DAILY melatonin 1 mg PO BEDTIME PRN methimazole 10 mg PO DAILY pantoprazole 40 mg (2 x 20 mg) PO DAILY PRN 30 days HPI HPI Comments History of Present Illness Details A 43 y/o fam hx colon cancer- ( sister 48) she has had genetic testing [facility]- She is taking pantoprazole for acid reflux with good response Reviewed procedure report pathology and recommendation She will be traveling to [place] to care for her ill father She has no nausea, vomiting, hematemesis, hematochezia fever or chills PFSH Medical History (Updated 01/22/24 @ 12:33 by Arielle Michele PA-C) Shoulder pain GERD (gastroesophageal reflux disease) Recurrent urinary tract infection History of kidney stones Depression Anxiety IBS (irritable bowel syndrome) Anemia Acid reflux Asthma History of thyroid disorder Surgical History History of esophagogastroduodenoscopy (EGD) Hx of colonoscopy Status post endometrial ablation Hx of lithotripsy History of carpal tunnel surgery of left wrist History of lumpectomy of left breast History of bilateral tubal ligation H/O section Family History (Updated 01/22/24 @ 12:30 by Arielle Michele PA-C) Father Diabetes mellitus Mother Stroke Diabetes mellitus HTN (hypertension) Family/Other Breast cancer Ovarian cancer Uterine cancer Son No problems noted. Son No problems noted. Daughter No problems noted. Social History Household Members: Children Housing: Apartment Are you a primary childcare center administrator to a significant other at home: No Do you presently have visiting nurse or other home services: No Alcohol intake: never Patient Tobacco Use Status: Former Tobacco user Quit Date: 5 years Second Hand Smoke Exposure: Yes Substance Use Type: Marijuana service: No Current occupational status: employed Sexual orientation: Straight/Heterosexual Gender identity: Female Female Reproductive History Menstrual Age of Menarche: 9 Review of Systems Const All systems reviewed & are unremarkable except as noted in HPI and below Physical Exam Vital Signs: Last Vital Signs Pulse 83 01/22/24 12:05 BP 134/75 01/22/24 12:05 BMI result Body Mass Index 29.4 Alert and oriented no acute distress Const General: healthy appearing Orientation/consciousness: patient oriented x3 Limitations: language barrier Neuro General: patient oriented x3 Psych Appearance: grossly normal and well kempt Mental Status: mental status grossly normal Speech and movement: Normal speech and movement present and Clear speech present Affect: normal affect Attitude: cooperative Thought process: Normal thought process present Thought content: Normal thought content present Insight: Good insight present (Psych) Judgement: Good judgement present (Psych) Results Reviewed Results Reviewed: mpression and Post Procedure Diagnosis: Endoscopy Findings: hiatal hernia gastritis Colonoscopy Findings: non specific colitis internal hemorrhoids Plan: Await Pathology results Repeat Colonoscopy in 5 years due to FH of CRC or earlier if clinically indicated High fiber diet leaflet avoid straining at stool, epsom salts and sitz bath, anusol supps or cream Reflux precautions, consider referral for surgical repair of hernia ddendum #1 (A): Immunostain for H. pylori is negative with appropriate control. Electronically Signed By: Roberta Lozano 12/31/23 [id number] Diagnosis A. Stomach, biopsy: Gastric body mucosa with focal minimal chronic inactive inflammation; negative for intestinal metaplasia and dysplasia (see comment). B. Terminal ileum, biopsy: Ileal mucosa with prominent Peyer's patches otherwise no specific change. C. Colon, cecum, biopsy: Colonic mucosa with lymphoid aggregate and no specific change; no granulomas, colitis or dysplasia. Comment: Immunostain for H. pylori on A is pending; addendum to follow. Clinical History Pre-Op Dx: Gastro-esophageal reflux disease without esophagitis Post-Op Dx: Upper: gastritis, hiatal hernia; Lower: internal hemorrhoids, colitis non-specific Microscopic Description Microscopic sections reviewed. AB/PAS stain on A is negative for intestinal metaplasia. Control stains appropriately. Material Received A. Stomach bx's B. Terminal ileum bx's C. Cecum bx's Gross Description Received in 3 parts. Patient: Chandrika Teague Age/Sex: 43/F MR#: [id number] Page 1 of 2 Assessment & Plan Assessment & Plan (1) Acid reflux: Code(s): K21.9 - Gastro-esophageal reflux disease without esophagitis Plan: continue pantoprazole (2) Family history of colon cancer: Code(s): Z80.0 - Family history of malignant neoplasm of digestive organs Plan colon 5 years due to famhx Medications: Refilled pantoprazole 40 mg (2 x 20 mg) PO DAILY 30 days PRN 180 tabs 2RF for indigestion Coding Level of Care Code Est Pt Level 3 (70181) Diagnoses Acid reflux K21.9 Family history of colon cancer Z80.0 Time Spent (min) 20 Comment [id number]- Thalia
[2024-01-22 12:05] VITALS: BP 134/75; PULSE 83; BMI 29.4
== END 2024-01-22 12:38 | disposition home or self-care (01) ==
PROVIDERS: PCP Family Medicine; Visit Provider Physician Assistant
DX: K21.9 Gastro-esophageal reflux disease without esophagitis (principal); Z80.0 Family history of malignant neoplasm of digestive organs
CPT/HCPCS: 99213

== ENCOUNTER → 2024-01-22 12:01 | Outpatient (BNVA) | payer MEDICAID, SELFPAY | PROVIDERS: PCP Family Medicine; Visit Provider Physician Assistant | DX: K21.9 Gastro-esophageal reflux disease without esophagitis (principal); Z80.0 Family history of malignant neoplasm of digestive organs | CPT/HCPCS: 99212 ==

== ENCOUNTER 2024-10-10 13:04 | Emergency (ER) | payer SELFPAY ==
--- NOTE | ~2024-10-10 | XR_ITS ---
Exams: Lumbosacral spine 3 views and sacrum and coccyx 3 views HISTORY: Pain status post fall. FINDINGS: Generalized mild endplate spurring. Slightly exaggerated lumbar lordosis without fracture or subluxation. No spondylolysis. Sacrum intact. XR/XR lumbar spine 2-3V IMPRESSION: Mild degenerative changes. No fracture. Electronically signed by: Nolan Baez MD 10/10/2024 02:51 PM [employer]
--- NOTE | ~2024-10-10 | XR_ITS ---
Exams: Lumbosacral spine 3 views and sacrum and coccyx 3 views HISTORY: Pain status post fall. FINDINGS: Generalized mild endplate spurring. Slightly exaggerated lumbar lordosis without fracture or subluxation. No spondylolysis. Sacrum intact. XR/XR sacrum coccyx min 2V IMPRESSION: Mild degenerative changes. No fracture. Electronically signed by: Nolan Baez MD 10/10/2024 02:51 PM [employer]
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
[2024-10-10 13:15] VITALS: BP 143/91; PULSE 91; RESP 18; TEMP 37.1; O2SAT 100; BMI 29.2
[2024-10-10 15:31] VITALS: BP 138/75; PULSE 67; RESP 18; TEMP 36.4; O2SAT 100
[2024-10-10] MEDS: Lidocaine 4 % Patch ADH..PATCH 1 PATCH TRANSDERMA (16:51)
[2024-10-10] MEDS: Cyclobenzaprine HCl 5 MG TABLET PO (16:51)
[2024-10-10] MEDS: Ibuprofen 600 MG TABLET PO (16:51)
[2024-10-10] MEDS: Acetaminophen 325 MG TABLET 650 MG PO (16:51)
[2024-10-10 16:56] VITALS: BP 138/75; PULSE 67; RESP 18; TEMP 36.4; O2SAT 100
== END 2024-10-10 16:56 | disposition home or self-care (01) ==
PROVIDERS: Emergency Provider Emergency Medicine; PCP Family Medicine
DX: S30.0XXA Contusion of lower back and pelvis, initial encounter (principal); W19.XXXA Unspecified fall, initial encounter; Y93.9 Activity, unspecified; Y92.009 Unspecified place in unspecified non-institutional (private) residence as the place of occurrence of the external cause; Y99.9 Unspecified external cause status
CPT/HCPCS: 72100; 72220; 99283

== ENCOUNTER 2024-12-02 09:16 | Outpatient (REF) | payer MEDICAID, SELFPAY ==
--- OUTSIDE RECORDS SUMMARY | 2024-12-02 10:18 | XMS_ITS | Encounter Summary ---
Author Organization [employer] [facility] Address [address] [facility] [address] [place] [address] Care Team Providers Care Colorist Photography Name Role Phone Rachel Riley MD Primary Care Provider [phone] Reason for Visit * Reason Onset Date Comments ER Follow-up 11/12/2024 Encounter Details Date Type Department Care Team ([facility] st Contact Info) Description 11/12/2024 Telephone [facility] [address] [place] [address] Rachel Riley MD [address] [place], [place] [phone] ER Follow-up Social History Tobacco Use Types Packs/Day Years Used Date Smoking Tobacco: Former Cigarettes 0.3 4 1 11/28/2015 - 09/27/2020 Passive Smoke Exposure: Never Smokeless Tobacco: Never Alcohol Use Standard Drinks/Week Comments Never 0 (1 standard drink = 0.6 oz pur e alcohol) Depression Answer Date Recorded Patient Health Questionnaire-9 Score 7 10/03/2023 Patient Health Questionnaire-9 Score 7 10/03/2023 Last PHQ-9: Questionnaire Data Not on file 1 12/04/2022 Housing Stability Answer Date Recorded What is your housing situation today? I have ricardo craven 10/03/[address] you li ve. Do you have problems with any of the following? None of the above 10/03/2023 Food Insecurity Answer Date Recorded Within the past 12 months, y ou worried that your food would run out before you got money to buy more: Never True 10/03/2023 Within the past 12 months,th e food you bought just didn't last and you didn't have enough money to get more: Never True Transportation Answer Date Recorded In the past 12 months, has l ack of transportation kept you from medical appts, meetings, work or from getting things needed for daily living? No 10/03/2023 Utilities Answer Date Recorded In the past 12 months, has t he electric, gas, oil or water company threatened to shut off services in your home? No 10/03/2023 Depression Answer Date Recorded Patient Health Questionnaire-2 Score 2 10/03/2023 Comments Unknown Sex and Gender Information Value Date Recorded Sex Assigned at Female 08/20/2022 10:17 AM EDT Legal Sex Female 10:17 AM EDT Gender Identity Female 08/20/2022 10:17 AM EDT Sexual Orientation Straight 08/20/2022 10 :17 AM EDT documented as of this encounter Miscellaneous Notes * Telephone Encounter - Sylvia Gomez RN - 11/13/2024 4:16 PM EST Telephone call to the pt regarding the previous message . Pt states she went to [place] in Marchwhen he father and was there until September .States she went to the ER in [place] in March and was given a blood pressure medication at that time as her blood pressure was high . Pt states she is all out of the medication . Pt was [facility] of the [facility] hours as the pt states she works on Saturdays ,and during the mornings . Pt states she will go to the [facility] with her empty pill bottle on Saturday . * Telephone Encounter - Adam Gautam - 11/12/2024 2:24 PM EST Patient calling to report ED visit on : Date: March/2024 Hospital: Emergency room in [place] Seen for: high blood pressure Symptomatic No *if yes message should go to Triage Pt during that time was prescribed blood pressure medication that she is currently out of and is looking for pcp to prescribe. Losartan 25mg 1x a day Patient advised will forward to team nurse for follow up documented in this encounter Plan of Treatment Upcoming Encounters Date Type Department Care Team (Late st Contact Info) Description 12/15/2024 1:00 PM EST Office Visit [facility] [address] [place] [address] Rachel Riley MD [address] [place] [address] documented as of this encounter Visit Diagnoses Not on filedocumented in this encounter Additional Health Concerns Assessment Noted Time PHQ-9 Depression Total Score: 7 10/03/20 23 11:26 AM EST documented as of this encounter Care Teams Colorist Photography Relationship Specialty Start Date End Date Rachel Riley MD [address] [place] [address] PCP - General Family Medicine 10/21/18 documented as of this encounter
--- OUTSIDE RECORDS SUMMARY | 2024-12-02 10:19 | XMS_ITS | Encounter Summary ---
Author Organization [employer] [facility] Address [address] [address] [facility] 7t [place] [address] Care Team Providers Care Workforce Management Coordinator Name Role Phone Rachel Riley MD Primary Care Provider [phone] Encounter Details Date Type Department Care Team (Late st Contact Info) Description 10/29/2023 Orders Only [facility] [address] [place], [place] [phone] Rachel Riley MD [address] [place], [place] [phone] Chronic pain of both knees (Primary Dx) Social History Tobacco Use Types Packs/Day Years [...] AM EDT documented as of this encounter Plan of Treatment Upcoming Encounters Date Type Department Care Team (Late st Contact Info) Description 12/15/2024 1:00 PM EST Office Visit [facility] [address] [place] [address] Rachel Riley MD [address] [place] [address] documented as of this encounter Visit Diagnoses Diagnosis Chronic pain of both knees- Primary documented in this encounter Additional Health Concerns Assessment Noted Time PHQ-9 Depression Total Score: 7 10/03/20 23 11:26 AM EST documented as of this encounter Care Teams Workforce Management Coordinator Relationship Specialty Start Date End Date Rachel Riley MD [address] [place] [address] PCP - General Family Medicine 10/21/18 documented as of this encounter
--- OUTSIDE RECORDS SUMMARY | 2024-12-02 10:19 | XMS_ITS | Encounter Summary ---
Author Organization [employer] [facility] Address [address] [place] [address] Care Team Providers Care Inventory Representative Name Role Phone Rachel Riley MD Primary Care Provider [phone] Encounter Details Date Type Department Care Team (Late st Contact Info) Description 10/23/2023 Orders Only [facility] [address] [place], [place] [phone] Rachel Riley MD [address] [place], [place] [phone] Bunion (Primary Dx); Primary osteoarthritis of left foot Social History Tobacco Use Types Packs/Day Years [...] Description 12/15/2024 1:00 PM EST Office Visit [facility] [address] [place] [address] Rachel Riley MD [address] [place] [address] documented as of this encounter Visit Diagnoses Diagnosis Bunion- Primary Primary osteoarthritis of left foot documented in this encounter Additional Health Concerns Assessment Noted Time PHQ-9 Depression Total Score: 7 10/03/20 23 11:26 AM EST documented as of this encounter Care Teams Inventory Representative Relationship Specialty Start Date End Date Rachel Riley MD [address] [place] [id number] PCP - General Family Medicine 10/21/18 documented as of this encounter
--- OUTSIDE RECORDS SUMMARY | 2024-12-02 10:19 | XMS_ITS | Encounter Summary ---
Author Organization [employer] [facility] Address [address] [facility] [address] [place] [address] Care Team Providers Care Raw Sampler Name Role Phone Rachel Riley MD Primary Care Provider [phone] Reason for Visit * Reason Comments Med Refill BP meds Encounter Details Date Type Department Care Team (Late st Contact Info) Description 11/17/2024 9:20 AM EST Office Visit [facility] [address] [place] [phone] Candace Varma MD [address] [place] [phone] Primary hypertension (Primary Dx); Viral URI Social History Tobacco Use Types Packs/Day Years Used Date Smoking Tobacco: Former Cigarettes 0.3 4 1 11/28/2015 - 09/27/2020 Passive Smoke Exposure: Never Smokeless Tobacco: Never Tobacco Cessation:Counseling Given: Not Answered Alcohol Use Standard Drinks/Week Comments Never 0 [...] AM EDT documented as of this encounter Last Filed Vital Signs Vital Sign Reading Time Taken Comments Blood Pressure 148/96 11/17/2024 9:34 AM EST Pulse 82 11/17/2024 9:34 AM EST Temperature 36.4 ??C (97.5 ??F) 11/17/2024 9:34 AM ES T Respiratory Rate 20 11/17/2024 9:34 AM EST Oxygen Saturation 99% 11/17/2024 9:34 AM EST Inhaled Oxygen Concentration - - Weight 80.1 kg (176 lb 9.6 oz) 11/17/2024 9:34 A M EST Height 161.5 cm (5' 3.6 ) 11/17/2024 9:34 AM EST Body Mass Index 30.7 11/17/2024 9:34 AM EST documented in this encounter Progress Notes * Emeli Hebert - 11/17/2024 9:20 AM EST Subjective Patient ID: Chandrika Teague is a 44 y.o. female with past medical history of asthma, GERD, IBS, graves disease, margarette's thyroiditis and anxiety/depression who presents to walk in clinic for MedRefill (BP meds). Called triage on 11/12/24, pt reported she went to [place] in March when he father and was there until September .States she went to the ER in [place] in March and was given a blood pressuremedication at that time as her blood pressure was high . Pt states she is all out of the medication. Pt brought her pill bottle that she was given in [place] which is Losartan. She reports she hasbeen out of the medication for at least a month. Pt says she has a BP monitor and she noticed when she does not take the pills her BP gets elevated as well. She has been having elevated BP's the pastmonth since being out of her medication. Review of Systems Constitutional: Negative for fatigue, fever and unexpected weight change. Respiratory: Negative for cough. Cardiovascular: Negative for chest pain. Gastrointestinal: Negative for abdominal pain. Genitourinary: Negative for difficulty urinating. Objective Visit Vitals BP (!) 148/96 (BP Location: Left arm, Patient Position: Sitting, BP Cuff Size: Adult) Pulse 82 Temp 97.5 ??F (36.4 ??C) (Temporal) Resp 20 Body mass index is 30.7 kg/m??. Physical Exam Constitutional: Appearance: Normal appearance. Cardiovascular: Rate and Rhythm: Normal rate and regular rhythm. Heart sounds: Normal heart sounds. Pulmonary: Effort: Pulmonary effort is normal. Breath sounds: Normal breath sounds. Neurological: Mental Status: She is alert and oriented to person, place, and time. Problem List Items Addressed This Visit Primary hypertension - Primary Dx 11/17/14 based on two occasion of elevated readings >140/90 in the span of two weeks. Prescribed Losartan in [place] 2 months ago and has been out for about a month. -Restart losartan (Cozaar) 25 MG 11/17/24 -Ordered labs to be checked in 2 weeks 11/17/24. -Has not seen providers in >8 months since being in [place]. Follow-up with PCP(Dr. Riley)in 4 weeks to reestablish care. Relevant Medications losartan (Cozaar) 25 MG tablet Other Relevant Orders Albumin, Random Urine W/Creatinine Hepatic Function Panel Basic Metabolic Panel TSH W/Reflex to FT4 -No evidence of acute disease process. Suspect primary hypertension that was discovered when she was in [place]. Symptoms BP slightly elevated today due to pt being out of er medications. -Refilled medication started in [place]. Ordered routine labs and will have pt follow-up with PCP to reestablish care since returning from [place] after 8 months. -ER precautions discussed. -Seek medical attention for worsening symptoms. I, Emeli Hebert, am serving as a scribe to document services personally performed by Dr. Arce, based on the patient's response to questions by provider and providers statements to me. documented in this encounter Miscellaneous Notes * Assessment & Plan Note - Emeli Hebert - 11/17/2024 9:58 AM ESTAssociated Problem(s): Primary hypertension Dx 11/17/14 based on two occasion of elevated readings >140/90 in the span of two weeks. Prescribed Losartan in [place] 2 months ago and has been out for about a month. -Restart losartan (Cozaar) 25 MG 11/17/24 -Ordered labs to be checked in 2 weeks 11/17/24. -Has not seen providers in >8 months since being in [place]. Follow-up with PCP(Dr. Riley)in 4 weeks to reestablish care. documented in this encounter Plan of Treatment Upcoming Encounters Date Type Department Care Team (Late st Contact Info) Description 12/15/2024 1:00 PM EST Office Visit [facility] [address] [place] [address] Rachel Riley MD [address] [place] [address] Scheduled Orders Name Type Priority Associated Diagnoses Orde r Schedule Albumin, Random Urine W/Creatinine Lab Routine Primary hypertension Expected: 11/17/2024 (Approximate), Expires: 11/17/2025 Hepatic Function Panel Lab Routine Primary hypertension Expected: 11/17/2024 (Approximate), Expires: 11/17/2025 Basic Metabolic Panel Lab Routine Primary hypertension Expected: 11/17/2024 (Approximate), Expires: 11/17/2025 TSH W/Reflex to FT4 Lab Routine Primary hypertension Expected: 11/17/2024 (Approximate), Expires: 11/17/2025 documented as of this encounter Visit Diagnoses Diagnosis Primary hypertension- Primary Unspecified essential hypertension Viral URI Acute upper respiratory infections of unspecified site documented in this encounter Additional Health Concerns Assessment Noted Time PHQ-9 Depression Total Score: 7 10/03/20 23 11:26 AM EST documented as of this encounter Care Teams Raw Sampler Relationship Specialty Start Date End Date Rachel Riley MD [address] [place] [address] PCP - General Family Medicine 10/21/18 documented as of this encounter
--- OUTSIDE RECORDS SUMMARY | 2024-12-02 10:19 | XMS_ITS | Encounter Summary ---
Author Organization [employer] Address [address] [place] [address] Care Team Providers Care Advertising Traffic Manager Name Role Phone Rachel Riley MD Primary Care Provider [phone] Reason for Visit * Reason Onset Date Comments Appointment 11/18/2024 Encounter Details Date Type Department Care Team ([facility] st Contact Info) Description 11/18/2024 Telephone [facility] [address] [place] [address] Lizeth Pruitt [place] Appointment Social History Tobacco Use Types Packs/Day Years [...] encounter Miscellaneous Notes * Telephone Encounter - Lizeth Pruitt MA - 11/18/2024 9:37 AM EST T/C- Manager Beauty Left Voice Mail to return call to schedule an appointment. Appointment: Follow Up Note: BP Month: November With: Rosemary Please schedule appointment if Patient calls Back. documented in this encounter Plan of Treatment Upcoming Encounters Date Type Department Care Team (Late st Contact Info) Description 12/15/2024 1:00 PM EST Office Visit [facility] [address] [place] [phone] Rachel Riley MD [address] [place] [phone] documented as of this encounter Visit Diagnoses Not on filedocumented in this encounter Additional Health Concerns Assessment Noted Time PHQ-9 Depression Total Score: 7 10/03/20 23 11:26 AM EST documented as of this encounter Care Teams Advertising Traffic Manager Relationship Specialty Start Date End Date Rachel Riley MD [address] [place] [phone] PCP - General Family Medicine 10/21/18 documented as of this encounter
--- OUTSIDE RECORDS SUMMARY | 2024-12-02 10:19 | XMS_ITS | Clinical Summary ---
Author Organization [employer] Address [address] [facility] [address] [place] [address] Care Team Providers Care Gas Station Cashier Name Role Phone Rachel Riley MD Primary Care Provider [phone] Allergies Active Allergy Reactions Criticality Noted Date Comments Aspirin Hives 06/25/2012 Penicillins Hives 06/25/2012 Medications fluticasone (Flonase) 50 MCG/ACT nasal sprayIndications: Allergic rhinitis, unspecified seasonality, unspecified trigger USE 1 SPRAY IN EACH NOSTRIL ONCE DAILY 48 g 3 Active Bisacodyl EC 5 MG EC tablet TAKE 2 TABLETS BY MOUTH AT NOON THE DAY BEFORE THE PROCEDURE 3 Active methIMAzole (Tapazole) 10 MG tablet Take 10 mg by mouth in the morning. 3 Active pantoprazole (ProtoNix) 20 MG EC tablet TAKE 2 TABLETS BY MOUTH EVERY DAY NEEDED (for stomach acid) 3 Active polyethylene glycol, PEG, 3350 (Glycolax) 17 GM/SCOOP powder USE DIRECTED 1 DAY BEFORE PROCEDURE FOR BOWEL MOVEMENT 3 Active Blood Pressure Monitor kit Check blood pressure once daily and as needed 1 kit 3 Active acetaminophen (Tylenol) 500 MG tablet Take 2 tablets (1,000 mg) by mouth every 8 (eight) hours if needed for mild pain. 45 tablet 3 4 Active albuterol 108 (90 Base) MCG/ACT inhaler Inhale 2 puffs every 4 (four) hours. 18 g 3 4 Active gabapentin (Neurontin) 300 MG capsule take 1 capsule by oral route twice daily, or 2 tablets at night / Hebrew label 60 capsule 3 4 Active melatonin tablet TAKE 1 TO 2 TABLETS BY MOUTH DAILY AT BEDTIME NEEDED 60 tablet 3 4 Active cetirizine (ZyrTEC) 10 MG tablet TAKE 1 TABLET BY MOUTH EVERY MORNING 90 tablet 1 4 Active cyclobenzaprine (Flexeril) 10 MG tabletIndications :Strain of unspecified muscle, fascia and tendon at shoulder and upper arm level, right arm, initial encounter TAKE 1 TABLET BY MOUTH AT BEDTIME NEEDED FOR MUSCLE SPASMS 30 tablet 2 4 Active losartan (Cozaar) 25 MG tabletIndications :Primary hypertension Take 1 tablet (25 mg) by mouth Once per day. 30 tablet 2 5 11/17/19 26 Active Active Problems Problem Noted Date Diagnosed Date Primary hypertension 11/17/2024 Assessment & Plan (11/17/2024 10:01 AM EST): Dx 11/17/14 based on two occasion of elevated readings >140/90 in the span of two weeks. Prescribed Losartan in [place] 2 months ago and has been out for about a month. -Restart losartan (Cozaar) 25 MG 11/17/24 -Ordered labs to be checked in 2 weeks 11/17/24. -Has not seen providers in >8 months since being in [place]. Follow-up with PCP(Dr. Riley) in 4 weeks to reestablish care. History of iron deficiency anemia 01/12/2024 Assessment & Plan (01/12/2024 5:34 PM EDT): - history of iron infusion - likely due to AUB / fibroids - improved after endometrial ablation - still following with digital content coordinator At high risk for breast cancer 10/11/2023 Assessment & Plan (10/11/2023 1:16 PM EST): -Family history of breast cancer -Seen by Dr. Garcia for genetic counseling and testing, and it was normal. 12/26/17 b/l breast MRI. BI-RADS 1 b/l. 01/30/18 b/l diagnostic mammo. BI-RADS 3. Annual b/l mammo with magnification views due in 6 mo. 08/12/18 b/l Dx mammo. BI-RADS 3. Annual b/l mammo with magnification view. Suggested breast MRI 07/2019 Breast MRI BI-RADS 1. 07/2020 Breast MRI abnormal and was evaluated by Dr. Gonzalez for possible biopsy. No discrete mass / lesion for biopsy. 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 associate professor of education, Dr. Scott Hernandez -TPO positivity. -Currently seeing [facility] endocrinology service and being monitored for Graves' disease Graves disease 10/03/2023 Assessment & Plan (01/12/2024 5:32 PM EDT): - following with [facility] endocrinology, last seen on 08/12/23 - 08/12/23 TSH 0.74, free T4 1.08 - Thyroid US on 09/20/23 showed Mild diffuse increased vascularity with parenchymal heterogeneity, which may represent Graves' disease or Cherry's thyroiditis. Assessment & Plan (10/03/2023 6:37 AM EST): - following with [facility] endocrinology, last seen on 08/12/23 - 08/12/23 TSH 0.74, free T4 1.08 - Thyroid US on 09/20/23 showed Mild diffuse increased vascularity with parenchymal heterogeneity, which may represent Graves' disease or Cherry's thyroiditis. Class 1 obesity 10/01/2023 10/01/2023 Allergic rhinitis 07/02/2023 Abnormal TSH 07/02/2023 Mixed anxiety and depressive disorder 05/22/2016 Carpal tunnel syndrome 10/06/2015 Assessment & Plan (10/11/2023 1:12 PM EST): -s/p Left carpal tunnel release on 08/10/15 -s/p Right carpal tunnel release on 02/23/21, -Orthopedist: [facility], last seen in February 2021 postop -Continue Gabapentin -Discontinued NSAIDs due to worsening GERD. -Continue APAP. -Continue brace and activity modification. -Continue HEP. -Recommended to follow-up with her orthopedist for recurrent symptoms Irritable bowel syndrome 01/06/2015 Assessment & Plan (01/12/2024 5:32 PM EDT): Continue following with GI Upcoming appt for EGD / colonoscopy Assessment & Plan (10/11/2023 1:21 PM EST): Continue following with GI Upcoming appt for EGD / colonoscopy Asthma 02/09/2013 Assessment & Plan (01/12/2024 5:32 PM EDT): - continue albuterol HFA prn - continue working on smoking cessation Assessment & Plan (10/11/2023 1:28 PM EST): - continue albuterol HFA prn - continue working on smoking cessation Gastroesophageal reflux disease 02/09/2013 Assessment & Plan (01/12/2024 5:32 PM EDT): - following with [facility] - upcoming appt with EGD / colonoscopy - work on smoking cessation - avoid NSAIDs or other irritants Assessment & Plan (10/11/2023 1:22 PM EST): - following with [facility] - upcoming appt with EGD / colonoscopy - work on smoking cessation - avoid NSAIDs or other irritants History of Helicobacter pylori infection 013 Abnormal uterine bleeding (AUB) 02/09/2013 Assessment & Plan (10/11/2023 1:23 PM EST): s/p NovaSure endometrial ablation Dec 16 2020 -improved menstrual flow Encounters Date Type Department Care Team Description 11/18/2024 Telephone [facility] [address] [place] [address] [place] Appointment 11/17/2024 9:20 AM EST Office Visit [facility] [address] [place] [phone] Candace Varma MD Primary hypertension (Primary Dx); Viral URI 11/12/2024 Telephone [facility] [address] [place] [address] [phone] Rachel Riley MD ER Follow-up 10/13/2024 Telephone [facility] [address] [place] [phone] Rachel Riley MD ER Follow-up; Nurse Triage 10/10/2024 Orders Only [facility] External Provider, [facility] from Last 3 Months Immunizations Name Administration Dates Next Due DTaP 04/16/1996, 4,07/14/1980,07/09,01/21/1979,1978 Hep B, adult 03/18/2008,06/11/2006,05/06/2006 IPV 06/13/1980, 9,01/21/1979,11/20 Influenza injectable quadriv alent IIV4 with preservative 09/16/2017,10/06/2015 Influenza injectable quadriv alent preservative free 08/30/2022,07/11/2021,09/30/2018,10/01 Influenza, IIV3, injectable 08/23/2014,1 11/11/2010,06/15/2010,09/09 MMR 04/14/1992,01/27/1980 Pfizer Covid-19 Vaccine 12+ 12/24/2023 Pneumococcal Conjugate PCV 20 12/24/2023 Pneumococcal Polysaccharide PPSV23 10/31/2011 TD (adult), 2 Lf tetanus tox oid, preservative free, adsorbed 01/06/2008 Td (adult), 5 Lf tetanus tox oid, preservative free, adsorbed 12/07/2021 Tdap 10/31/2011 Varicella 10/31/2011,06/15/2010 Social History Tobacco Use Types Packs/Day Years [...] is your housing situation today? I have ricardotsering craven 10/03/[address] you [...] Orientation Straight 08/20/2022 10 :17 AM EDT Last Filed Vital Signs Vital Sign Reading [...] Mass Index 30.7 11/17/2024 9:34 AM EST Plan of Treatment Upcoming Encounters Date Type Department Care Team (Late st Contact Info) Description 12/15/2024 1:00 PM EST Office Visit [facility] [address] [place] [phone] Rachel Riley MD [address] [place] [address] Health Maintenance Due Date Last Done Comments CT Colonography 1978 Dental Oral Exam 1978 Dental X-Ray: Bitewings 1978 Dental X-Ray: Full Mouth 1978 FIT DNA/Cologuard 1978 FIT 1978 FOBT 1978 Sigmoidoscopy 1978 Alcohol/Substance Use Screening 1990 Family Planning (PISQ) 1993 Dental Prophylaxis 04/17/2023 10/16/2022 Pap Smear 03/13/2024 03/13/2021 COVID-19 Vaccine ( season) 2024 12/24/2023, 11/21/2021, 05/17/2021, Additional history exists Influenza Vaccine (#1) 2024 , 07/11/2021, 09/30/2018, Additional history exists Depression Screening 10/03/2024 10/03/2023, 10/03/20 23 SDOH Screening 10/03/2024 10/03/2023 Mammogram 09/24/2025 09/24/2023, 1202/2023, 09/02/2023, Additional history exists Tobacco Screening 11/17/2025 11/17/2024 Cervical Cancer Screening 03/13/2026 HPV/Cotest 03/13/2026 03/13/2021, 09/16/2017 Zoster Vaccines (1 of 2) 2028 Lipid Panel 10/08/2028 10/08/2023 DTaP/Tdap/Td Vaccines (10 - Td or Tdap) 12/07/2031 12/07/2021, 10/31/2011, 01/06/2008, Additional history exists Colonoscopy 11/04/2033 11/04/2023 Colorectal Cancer Screening 11/04/2033 RSV Patients and Patients Aged 60 years or older (1 - 1-dose 75+ series) 2053 IPV Vaccines Completed 06/13/1980, 06/21, 01/21/1979, Additional history exists Hepatitis B Vaccines Completed 03/18/2008, 06/11/2006, 05/06/2006 HIV Screening Completed 03/28/2021 Hepatitis C Screening Completed 03/28/2021 Pneumococcal Vaccine: Pediatrics (0 to 5 Years) and At-Risk Patients (6 to 49) Years) Completed 12/24/2023, 10/31/2011 HIB Vaccines Aged Out No longer eligi ble based on patient's age to complete this topic HPV Vaccines Aged Out No longer eligi ble based on patient's age to complete this topic Hepatitis A Vaccines Aged Out No long er eligible based on patient's age to complete this topic Meningococcal Vaccine Aged Out No fortunato racquel eligible based on patient's age to complete this topic RSV under 20 months Aged Out No longe r eligible based on patient's age to complete this topic Rotavirus Vaccines Aged Out No longer eligible based on patient's age to complete this topic Procedures Procedure Name Priority Date/Time Associated Diagnosis Comments XR SACRUM COCCYX 2+ VIEWS Routine 10/10/2024 1:15 PM EST XR LUMBAR SPINE 2-3 VIEWS Routine 10/10/2024 1:15 PM EST HM COLONOSCOPY Routine 11/04/2023 LIPID PANEL WITH REFLEX TO DIRECT LDL Routine 10/08/2023 11:01 AM EST Elevated blood-pressure reading without diagnosis of hypertension BI US BREAST LIMITED LEFT Routine 09/24/2023 2:47 PM EST PROPHYLAXIS - ADULT Routine 10/16/2022 1 0:00 AM EST ZZZ HISTORICAL HEPATITIS C AB W/REFL TO HCV RNA, QN, PCR Routine 03/28/2021 10:49 AM EDT HIV 1/2 ANTIGEN/ANTIBODY, FOURTH GENERATION W/RFL Routine 03/28/2021 10:49 AM EDT HPV MRNA E6/E7 Routine 03/13/2021 12:00 AM EDT THINPREP PAP Routine 03/13/2021 12:00 AM EDT from Last 3 Months or Most Recently Relevant to Health Maintenance Results * XR Sacrum Coccyx 2+ Views (10/10/2024 1:15 PM EST) Anatomical Region Laterality Modality Sacrum, Coccyx Radiographic Maryellen ging 10/10/2024 1:15 PM EST Narrative 10/10/2024 2:54 PM EST ? [facility] ?[address] ?[place] [address] ?XRay Report ? Signed ? Patient: Chandrika Teague ?MR#: [id number] ?? [id number] ? : 1980 ?Acct:[id number] ? Age/Sex: 44 / F ?ADM Date: 10/10/24 ? Loc: HO.ED ? Attending Dr: ? Ordering Physician: Olesya Love ?? Date of Service: 10/10/24 ?? Procedure(s): XR sacrum coccyx min 2V ?? Accession Number(s): [id number] ? cc: Olesya Love; Rachel Riley MD ? Exams: Lumbosacral spine 3 views and sacrum and coccyx 3 views ? HISTORY: Pain status post fall. ? FINDINGS: Generalized mild endplate spurring. Slightly exaggerated ?? lumbar lordosis without fracture or subluxation. No spondylolysis. ?? Sacrum intact. ? XR/XR sacrum coccyx min 2V ?? IMPRESSION: ?? Mild degenerative changes. No fracture. ? Electronically signed by: ??Nolan Baez MD ??10/10/2024 02:51 PM EST RP ? Dictated By: ?Nolan Baez MD ? Signed By: ?<Electronically signed by Nolan Baez MD in OV> ?10/10/24 1451 ? DD/ 1315 ? TD/TT: 10/10/24 1338 ? Splicing Machine Operator Automatic: SL ? Procedure Note Donotjoditer, Image - 10/10/[address] [address] XRay Report Signed Patient: Chandrika TeagueMR#: [id number] : 1980Acct:[id number] Age/Sex: 44 / FADM Date: 10/10/24 Loc: HO.ED Attending Dr: Ordering Physician: Olesya Love Date of Service: 10/10/24 Procedure(s): XR sacrum coccyx min 2V Accession Number(s): [id number] cc: Olesya Love; Rachel Riley MD Exams: Lumbosacral spine 3 views and sacrum and coccyx 3 views HISTORY: Pain status post fall. FINDINGS: Generalized mild endplate spurring. Slightly exaggerated lumbar lordosis without fracture or subluxation. No spondylolysis. Sacrum intact. XR/XR sacrum coccyx min 2V IMPRESSION: Mild degenerative changes. No fracture. Electronically signed by: Nolan Baez MD 10/10/2024 02:51 PM EST Dictated By: Nolan Baez MD Signed By: <Electronically signed by Nolan Baez MD in OV> 10/10/24 1451 DD/ 1315 TD/TT: 10/10/24 1338 Splicing Machine Operator Automatic: SIL[facility]IO [facility] External Provider IMG XR PROCEDURES Edited Result - Final * XR Lumbar Spine 2-3 Views (10/10/2024 1:15 PM EST) Anatomical Region Laterality Modality Spine, L-spine Radiographic Maryellen ging 10/10/2024 1:15 PM EST Narrative 10/10/2024 2:54 PM EST ? [facility] ?[address] ?[place] [address] ?XRay Report ? Signed ? Patient: Ho,Chandrika ?MR#: [id number] ?? [id number] ? : 1980 ?Acct:[id number] ? Age/Sex: 44 / F ?ADM Date: 10/10/24 ? Loc: HO.ED ? Attending Dr: ? Ordering Physician: Olesya Love ?? Date of Service: 10/10/24 ?? Procedure(s): XR lumbar spine 2-3V ?? Accession Number(s): [id number] ? cc: Olesya Love; Rachel Riley MD ? Exams: Lumbosacral spine 3 views and sacrum and coccyx 3 views ? HISTORY: Pain status post fall. ? FINDINGS: Generalized mild endplate spurring. Slightly exaggerated ?? lumbar lordosis without fracture or subluxation. No spondylolysis. ?? Sacrum intact. ? XR/XR lumbar spine 2-3V ?? IMPRESSION: ?? Mild degenerative changes. No fracture. ? Electronically signed by: ??Nolan Baez MD ??10/10/2024 02:51 PM EST RP ? Dictated By: ?Nolan Baez MD ? Signed By: ?<Electronically signed by Nolan Baez MD in OV> ?10/10/24 1451 ? DD/ 1315 ? TD/TT: 10/10/24 1338 ? Splicing Machine Operator Automatic: SL ? Procedure Note Bonnie Slaughter - 10/10/2024 [place] [address] XRay Report Signed Patient: Chandrika TeagueMR#: [id number] : 1980Acct:[id number] Age/Sex: 44 / FADM Date: 10/10/24 Loc: HO.ED Attending Dr: Ordering Physician: Olesya Love Date of Service: 10/10/24 Procedure(s): XR lumbar spine 2-3V Accession Number(s): [id number] cc: Olesya Love; Rachel Riley MD Exams: Lumbosacral spine 3 views and sacrum and coccyx 3 views HISTORY: Pain status post fall. FINDINGS: Generalized mild endplate spurring. Slightly exaggerated lumbar lordosis without fracture or subluxation. No spondylolysis. Sacrum intact. XR/XR lumbar spine 2-3V IMPRESSION: Mild degenerative changes. No fracture. Electronically signed by: Nolan Baez MD 10/10/2024 02:51 PM EST Dictated By: Nolan Baez MD Signed By: <Electronically signed by Nolan Baez MD in OV> 10/10/24 1451 DD/ 1315 TD/TT: 10/10/24 1338 Splicing Machine Operator Automatic: SILVERIO [facility] External Provider IMG XR PROCEDURES Edited Result - Final * Colonoscopy (11/04/2023) Colonoscopy Normal Normal, Abnormal, BIRADS 0 , BIRADS 1 , BIRADS 2, BIRADS 3 , BIRADS 4+ Historical Provider HEALTH MAINTENANCE Final Result * (ABNORMAL) Lipid Panel with Reflex to Direct LDL (10/08/2023 11:01 AM EST) Triglycerides 69 <150 mg/dL [facility] Comment:Desirable Triglyceri de: less than 150 mg/dLBorderline High Triglyceride 150-199 mg/dLHigh Triglyceride: 200-499 mg/dLVery High Triglyceride: greater than or equal to 5OO mg/dL Cholesterol 211(H) <200 mg/dL [facility] Comment:Desirable Cholestero l: less than 200 mg/dLBorderline High Cholesterol: 200-239 mg/dLHigh Cholesterol: greater than 239 mg/dL LDL Cholesterol Calculated 131(H) <100 mg/dL [facility] Comment:Desirable LDL: less than 100 mg/dLNear Optimal/Above Optimal LDL: 110- 129 mg/dLBorderline High LDL: 130-159 mg/dLHigh LDL: 160-189 mg/dLVery High LDL: greater than or equal to 190 mg/dL HDL Cholesterol 67 >40 mg/dL [facility] Comment:Desirable HDL: great er than 40 mg/dL Note: This HDL assay may give artificially low results in patients with liver disease. Blood 10/08/2023 11:0 1 AM EST 10/08/2023 1:16 PM EST us Rachel Riley MD LAB BLOOD ORDERABLES Final Resul t [facility] [address] [place] [address] [phone] * BI US Breast Limited Left (09/24/2023 2:47 PM EST) Anatomical Region Laterality Modality Breast Left Ultrasound 09/24/2023 2:47 PM EST Narrative 09/24/2023 3:44 PM EST ? [facility] ? [address] ?[place] [address] ? Ultrasound Report ? Signed ? Patient: Chandrika Teague ?MR#: [id number] ?? [id number] ? : 1980 ?Acct:[id number] ? Age/Sex: 43 / F ?ADM Date: 09/24/23 ? Loc: HO.MAMMO ? Attending Dr: Rachel Riley MD ? Ordering Physician: Rachel Riley MD ?? Date of Service: 09/24/23 ?? Procedure(s): US breast LT limited mamm only ?? Accession Number(s): [id number] ? cc: Rachel Riley MD ? EXAMINATION: ?? MM DIAGNOSTIC DIGITAL BREAST TOMOSYNTHESIS, LEFT ?? US BREAST LIMITED, LEFT ? MAMMOGRAPHY: ?? CLINICAL INFORMATION: ? Evaluate focal asymmetric density seen upper outer left breast on ?? screening mammography. ??Family history premenopausal breast cancer, ?? sister. ? COMPARISON: ?? Mammography: 09/02/2023, 08/27/2022, 08/21/2021, and dating back to ?? 2019. ?? MR breasts 08/31/2021, 08/10/2020. ? TECHNIQUE: ?? Digital left breast tomosynthesis is performed in the following views: ?? 3-D spot compression left CC and left MLO views, and a full-field 3-D ?? left mediolateral view. ? FINDINGS: ?? The breasts are heterogeneously dense, which may obscure small masses ?? (ACR BI-RADS breast composition Category c). ? Diagnostic views demonstrate persistence of the focal asymmetric ?? density in the upper outer left breast, with at least one ?? well-circumscribed mass measuring 1.1 cm which is isodense. This will ?? be evaluated by ultrasound. ? There are stable diffuse parenchymal calcifications in the left and ?? right breasts. ? ULTRASOUND: ?? CLINICAL INFORMATION: ?? Evaluate focal asymmetric density seen upper outer left breast on ?? screening mammography. ? COMPARISON: ?? None. Correlation made with MRI of the breast dated 08/31/2021. ? TECHNIQUE: ?? Targeted sonographic evaluation was performed using a high frequency ?? linear transducer. Attention was paid to the upper outer quadrant of ?? the left breast. Selected archived documentation. ? FINDINGS: ? LEFT BREAST: There are 2 abutting simple cysts present in the 2:00 axis ?? of the left breast, 9 cm from the nipple. Both are anechoic, have good ?? through transmission, and there are circumscribed. The larger measures ?? 1.1 cm in diameter and the smaller measures 0.8 cm in diameter. These ?? findings are benign and a calcified for the mammographic focus of ?? concern. ? US/US breast LT limited mamm only ?? IMPRESSION: ?? No findings suspicious for malignancy left breast. ? Focal asymmetric density in the upper outer left breast correlates to 2 ?? abutting simple cysts as detailed above. Findings are benign. ? Stable benign scattered calcifications suggesting adenosis. ? Recommend the patient resume routine annual screening mammography. ? OVERALL ASSESSMENT: ?? Mammography: BI-RADS 2 - Benign Findings ?? Ultrasound: BI-RADS 2 - Benign Findings ? RECOMMENDATION: ?? 1 year F/U ? This patient's information was entered into a reminder system with a ?? target due date for their next mammogram. ? Dictated By: ?Scotty Moreno MD ? Signed By: ?<Electronically signed by Scotty Moreno MD in OV> ?09/24/230 ? DD/ 46 ? TD/TT: ? Splicing Machine Operator Automatic: ? Procedure Note Bonnie Slaughter - 09/24/2023 [facility] [address] [place] [address] Dr. [place], [place] [address] Ultrasound Report Signed Patient: Chandrika TeagueMR#: [id number] : 1980Acct:[id number] Age/Sex: 43 / FADM Date: 09/24/23 Loc: HO.MAMMO Attending Dr: Rachel Riley MD Ordering Physician: Rachel Riley MD Date of Service: 09/24/23 Procedure(s): US breast LT limited mamm only Accession Number(s): [id number] cc: Rachel Riley MD EXAMINATION: MM DIAGNOSTIC DIGITAL BREAST TOMOSYNTHESIS, LEFT US BREAST LIMITED, LEFT MAMMOGRAPHY: CLINICAL INFORMATION: Evaluate focal asymmetric density seen upper outer left breast on screening mammography. Family history premenopausal breast cancer, sister. COMPARISON: Mammography: 09/02/2023, 08/27/2022, 08/21/2021, and dating back to 2019. MR breasts 08/31/2021, 08/10/2020. TECHNIQUE: Digital left breast tomosynthesis is performed in the following views: 3-D spot compression left CC and left MLO views, and a full-field 3-D left mediolateral view. FINDINGS: The breasts are heterogeneously dense, which may obscure small masses (ACR BI-RADS breast composition Category c). Diagnostic views demonstrate persistence of the focal asymmetric density in the upper outer left breast, with at least one well-circumscribed mass measuring 1.1 cm which is isodense. This will be evaluated by ultrasound. There are stable diffuse parenchymal calcifications in the left and right breasts. ULTRASOUND: CLINICAL INFORMATION: Evaluate focal asymmetric density seen upper outer left breast on screening mammography. COMPARISON: None. Correlation made with MRI of the breast dated 08/31/2021. TECHNIQUE: Targeted sonographic evaluation was performed using a high frequency linear transducer. Attention was paid to the upper outer quadrant of the left breast. Selected archived documentation. FINDINGS: LEFT BREAST: There are 2 abutting simple cysts present in the 2:00 axis of the left breast, 9 cm from the nipple. Both are anechoic, have good through transmission, and there are circumscribed. The larger measures 1.1 cm in diameter and the smaller measures 0.8 cm in diameter. These findings are benign and a calcified for the mammographic focus of concern. US/US breast LT limited mamm only IMPRESSION: No findings suspicious for malignancy left breast. Focal asymmetric density in the upper outer left breast correlates to 2 abutting simple cysts as detailed above. Findings are benign. Stable benign scattered calcifications suggesting adenosis. Recommend the patient resume routine annual screening mammography. OVERALL ASSESSMENT: Mammography: BI-RADS 2 - Benign Findings Ultrasound: BI-RADS 2 - Benign Findings RECOMMENDATION: 1 year F/U This patient's information was entered into a reminder system with a target due date for their next mammogram. Dictated By: Scotty Moreno MD Signed By: <Electronically signed by Scotty Moreno MD in OV> 09/24/23 1540 DD/ 1447 TD/TT: Splicing Machine Operator Automatic: Rachel Riley MD IMG US PROCEDURES Final Result * HEPATITIS C AB W/REFL TO HCV RNA, QN, PCR (03/28/2021 10:49 AM EDT) HEPATITIS C ANTIBODY NON-REACT LIZET NON-REACT LIZET [facility] INDEX 0.01 <1.00 [facility] Comment: ?? HCV antibody was non-reactive. There is no laboratory ?? evidence of HCV infection. ?? In most cases, no further action is required. However, if recent HCV exposure is suspected, a test for HCV RNA (test code 88084) is suggested. ?? For additional information please refer to http://education.[employer].ice/faq/VAV95i0 (This link is being provided for informational/ educational purposes only.) ?? 03/28/2021 10:4 9 AM EDT Rachel Riley MD HISTORICAL/NON ORDERABLE LABS Fi nal Result [facility] [address] [address] * HIV 1/2 ANTIGEN/ANTIBODY,FOURTH GENERATION W/RFL (03/28/2021 10:49 AM EDT) HIV-1/2 ANTIGEN AND ANTIBODIES, 4TH GENERATION W/ REFLEX NON-REACT LIZET NON-REACT LIZET [facility] Comment: HIV-1 antigen and HIV-1/HIV-2 antibodies were not detected. There is no laboratory evidence of HIV infection. ?? PLEASE NOTE: This information has been disclosed to you from records whose confidentiality may be protected by state law. ??If your state requires such protection, then the state law prohibits you from making any further disclosure of the information without the specific written consent of the person to whom it pertains, or as otherwise permitted by law. A general authorization for the release of medical or other information is NOT sufficient for this purpose. ? For additional information please refer to http://education.[employer]/faq/HNR569 (This link is being provided for informational/ educational purposes only.) ? The performance of this assay has not been clinically validated in patients less than 2 years old. ?? 03/28/2021 10:4 9 AM EDT Rachel Riley MD LAB BLOOD ORDERABLES Final Resul t [facility] [address] [place] [address], * THINPREP PAP (03/13/2021 12:00 AM EDT) Clinical Information: None given [facility] COMMENT SEE COMMENT [facility] Comment: EXPLANATORY NOTE: ? The Pap is a screening test for cervical cancer. It is ?? not a diagnostic test and is subject to false negative ?? and false positive results. It is most reliable when a ?? satisfactory sample, regularly obtained, is submitted ?? with relevant clinical findings and history, and when ?? the Pap result is evaluated along with historic and ?? current clinical information. ?? [employer] : SEE COMMENT [facility] Comment: DMM, CT(ASCP) CT screening location: [address] ??[id number] Infection Shift in vaginal beck suggestive of bacterial vaginosis. [facility] Interpretation/R esult: Negative for intraepithelial lesion or malignancy. [facility] LMP: NONE [facility]IV[facility] Prev. BX: NONE [facility] Prev. PAP: NONE [facility] SOURCE: None given [facility] Statement Of Adequacy: SEE COMMENT [facility] Comment: Satisfactory for evaluation. Endocervical/transformation zone component present. 03/13/2021 Rachel Riley MD LAB PATHOLOGY ORDERABLES Final R esult Performing Organization Address [facility] de Phone Number [facility] [address] * HPV mRNA E6/E7 (03/13/2021 12:00 AM EDT) HPV nRNA E6/E7 Not Detected Not Detected [facility] Comment: Methodology: [employer]-Mediated Amplification This assay detects E6/E7 viral messenger RNA (mRNA) from 14 high-risk HPV types (16,18,31,33,35,39,45,51,52,56,58,59,66,68). ? The analytical performance characteristics of this assay have been determined by [employer]. The modifications have not been cleared or approved by the FDA. This assay has been validated pursuant to the CLIA regulations and is used for clinical purposes. ?? For additional information, please refer to http://education.[employer]/faq/AOR704i2 (This link if provided for information/ educational purposes only.) 03/13/2021 Rachel Riley MD LAB BLOOD ORDERABLES Final Resul t Performing Organization Address [facility] de Phone Number [facility] [address] from Last 3 Months or Most Recently Relevant to Health Maintenance Insurance [facility] STANDARD [facility] C3 Care Teams [employer] Cashier Relationship Specialty Start Date End Date Rachel Riley MD [address] [place] [id number] PCP - General Family Medicine 10/21/18
--- OUTSIDE RECORDS SUMMARY | 2024-12-02 10:19 | XMS_ITS | Encounter Summary ---
Author Organization [facility] Address [address] [place] [address] [address] [place] [address] Care Team Providers Care Cooker Cleaner Name Role Phone Rachel Riley MD Primary Care Provider Encounter Details Date Type Department Care Team (Latest Contact Info) Description 06/15/2021 Abstract [facility] CONVERSIONS Dental, Provider, DDS Social History Tobacco Use Types Packs/Day Years Used Date Smoking Tobacco: Never Assessed Comments Unknown Sex and Gender Information Value [...] Description 12/15/2024 1:00 PM EST Office Visit [facility] [address] [place] [address] Rachel Riley MD [address] [place] [address] documented as of this encounter Visit Diagnoses Not on filedocumented in this encounter Care Teams Cooker Cleaner Relationship Specialty Start Date End Date Rachel Riley MD [address] [place] [address] PCP - General Family Medicine 10/21/18 documented as of this encounter
[2024-12-02 11:55] LABS: Creatinine Urine 180.25 mg/dL; Microalbum/Creatinine Ratio Ur 4.4 ug/mg cr (<30)
[2024-12-02 12:11] LABS: Alanine Aminotransferase 21 U/L (0-31); Albumin Level 4.1 g/dL (3.5-5.0); Alkaline Phosphatase 41 U/L (39-117); Anion Gap 8 (12-20); Aspartate Amino Transferase 24 U/L (5-31); Bilirubin Direct < 0.2 mg/dL (0.0-0.5); Bilirubin Total 0.2 mg/dL (0.0-1.0); Blood Urea Nitrogen 9 mg/dL (9-16); Calcium 8.4 mg/dL (8.4-10.2); Carbon Dioxide 26 mmol/L (22-29); Chloride 109 mmol/L (96-108); Estimated Glomerular Filt Rate > 60; Glucose Random 82 mg/dL (60-115); Potassium 3.9 mmol/L (3.3-5.1); Sodium 139 mmol/L (135-145); Total Protein 7.5 g/dL (6.5-8.0)
[2024-12-02 12:16] LABS: TSH reflex Free T4 0.56 uIU/mL (0.32-4.0)
== END 2024-12-02 09:17 | disposition home or self-care (01) ==
LOC: HO.HHCL 09:16
PROVIDERS: Visit Provider Family Medicine
DX: I10 Essential (primary) hypertension (principal)
CPT/HCPCS: 36415; 80048; 80076; 82043; 82570; 84443

== ENCOUNTER 2024-12-17 13:23 | Outpatient (REF) | payer MEDICAID, SELFPAY ==
--- OUTSIDE RECORDS SUMMARY | 2024-12-17 16:01 | XMS_ITS | Clinical Summary ---
Author Organization [employer] Address [address] [facility] [facility] [address] [place] [address] Care Team Providers Care Mat Man Name Role Phone Rachel Riley MD Primary Care Provider [phone] Allergies Active Allergy Reactions Criticality Noted Date Comments Aspirin Hives 06/25/2012 Penicillins Hives 06/25/2012 Medications * This document contains information received from the source organization and may not represent a complete record from that organization. Bisacodyl EC 5 MG EC tablet TAKE 2 TABLETS BY MOUTH AT NOON THE DAY BEFORE THE PROCEDURE 02/19/20 23 Active methIMAzole (Tapazole) 10 MG tablet Take 10 mg by mouth in the morning. 06/25/20 23 Active pantoprazole (ProtoNix) 20 MG EC tablet TAKE 2 TABLETS BY MOUTH EVERY DAY NEEDED (for stomach acid) 04/30/20 23 Active polyethylene glycol, PEG, 3350 (Glycolax) 17 GM/SCOOP powder USE DIRECTED 1 DAY BEFORE PROCEDURE FOR BOWEL MOVEMENT 02/19/20 23 Active Blood Pressure Monitor kit Check blood pressure once daily and as needed 1 kit 10/03/20 23 Active acetaminophen (Tylenol) 500 MG tablet Take 2 tablets (1,000 mg) by mouth every 8 (eight) hours if needed for mild pain. 45 tablet 3 12/24/19 24 Active melatonin tablet TAKE 1 TO 2 TABLETS BY MOUTH DAILY AT BEDTIME NEEDED 60 tablet 3 01/27/20 24 Active losartan (Cozaar) 25 MG tabletIndicatio ns:Primary hypertension Take 1 tablet (25 mg) by mouth Once per day. 30 tablet 2 11/17/19 25 026 Active albuterol 108 (90 Base) MCG/ACT inhaler Inhale 2 puffs every 4 (four) hours. 18 g 3 12/15/19 25 Active gabapentin (Neurontin) 300 MG capsule take 1 capsule by oral route twice daily, or 2 tablets at night / Swazi label 60 capsule 3 12/15/19 25 Active cetirizine (ZyrTEC) 10 MG tablet Take 1 tablet (10 mg) by mouth in the morning. 90 tablet 1 12/15/19 Active cyclobenzaprine (Flexeril) 10 MG tabletIndicatio ns:Strain of unspecified muscle, fascia and tendon at shoulder and upper arm level, right arm, initial encounter TAKE 1 TABLET BY MOUTH AT BEDTIME NEEDED FOR MUSCLE SPASMS 30 tablet 2 12/15/19 25 Active fluticasone (Flonase) 50 MCG/ACT nasal sprayIndication s:Allergic rhinitis, unspecified seasonality, unspecified trigger USE 1 SPRAY IN EACH NOSTRIL ONCE DAILY 48 g 12/15/19 25 Active fluticasone (Flonase) 50 MCG/ACT nasal sprayIndication s:Allergic rhinitis, unspecified seasonality, unspecified trigger USE 1 SPRAY IN EACH NOSTRIL ONCE DAILY 48 g 03/28/20 23 025 Discontinued(Re order (will not trigger notification to Pharmacy)) albuterol 108 (90 Base) MCG/ACT inhaler Inhale 2 puffs every 4 (four) hours. 18 g 3 12/24/19 24 025 Discontinued(Re order (will not trigger notification to Pharmacy)) gabapentin (Neurontin) 300 MG capsule take 1 capsule by oral route twice daily, or 2 tablets at night / Swazi label 60 capsule 3 12/24/19 24 025 Discontinued(Re order (will not trigger notification to Pharmacy)) cetirizine (ZyrTEC) 10 MG tablet TAKE 1 TABLET BY MOUTH EVERY MORNING 90 tablet 1 03/20/20 24 025 Discontinued(Re order (will not trigger notification to Pharmacy)) cyclobenzaprine (Flexeril) 10 MG tabletIndicatio ns:Strain of unspecified muscle, fascia and tendon at shoulder and upper arm level, right arm, initial encounter TAKE 1 TABLET BY MOUTH AT BEDTIME NEEDED FOR MUSCLE SPASMS 30 tablet 2 05/13/20 24 025 Discontinued(Re order (will not trigger notification to Pharmacy)) Active Problems Problem Noted Date Diagnosed Date Adjustment disorder with mixed anxiety and depre ssed mood 12/15/2024 Assessment & Plan (12/16/2024 3:02 PM EST): During IBH Consult Chandrika presenting with depressed mood, Tearful, crying spells , hopelessness, irritable mood, loss of interests/pleasure , sense of isolation/loneliness , isolating, changes in sleep difficulty falling asleep, difficulty staying asleep , restless, unsatisfying sleep, and sleeping too much, psychomotor retardation, psychomotor agitation, fatigue/loss of energy, worthlessness, inappropriate/excessive guilt , difficulty concentrating, indecisiveness and excessive worry/anxiety, difficulty controlling worry, anxiety/worry associated to restlessness and/or feeling keyed-up/On edge , easily fatigued , difficulty concentrating and/or mind going blank , muscle tension , and sleep disturbance difficulty falling asleep, and Fear ; for a period of 0-6 mo, for most or all symptoms in the context of . Pt presented severe depressed mood and anxiety associated to the recent of her father. Patient was very closed to him and was able to take care of him until he . Chandrika is trying to distract by keeping herself busy to avoid experiencing painful emotions. Positive support received from her family. She identifies her sister as main strength. clinician provided active/reflective listening. Reviewed and assessed for risk, current stressors and protective factors using open-ended questions. Provided bereavement counseling, validation of grief and empathic therapeutic approach. Pt was self-referred to OP therapy with [facility] and completed the intake process after today's session. clinician will provide additional support during next medical appointment. Bereavement 12/15/2024 Primary hypertension 11/17/2024 Assessment & Plan (12/16/2024 10:33 AM EST): Dx 11/17/14 based on two occasion of elevated readings >140/90 in the span of two weeks. Prescribed Losartan in [place] 2 months ago and has been out for about a month. -Restart losartan (Cozaar) 25 MG 11/17/24 -Ordered labs to be checked in 2 weeks 11/17/24. -Has not seen providers in >8 months since being in [place]. Follow-up with PCP(Dr. Riley) in 4 weeks to reestablish care. - Ordered Lipid Panel with Reflex to Direct LDL 12/15/24 Assessment & Plan (11/17/2024 10:01 AM EST): Dx 11/17/14 based on two occasion of elevated readings >140/90 in the span of two weeks. Prescribed Losartan in [place] 2 months ago and has been out for about a month. -Restart losartan (Cozaar) 25 MG 11/17/24 -Ordered labs to be checked in 2 weeks 11/17/24. -Has not seen providers in >8 months since being in [place]. Follow-up with PCP(Dr. Riley) in 4 weeks to reestablish care. 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 Scott Hernandez -TPO positivity. -Currently seeing [facility] endocrinology service and being monitored for Graves' disease Assessment & Plan (10/11/2023 1:21 PM EST): -Previously seen by [facility] casting and curing operator, Dr. Scott Hernandez -TPO positivity. -Currently seeing [facility] endocrinology service and being monitored for Graves' disease Graves disease 10/03/2023 Assessment & Plan (12/16/2024 10:31 AM EST): - following with [facility] endocrinology, last seen on 08/12/23 - 08/12/23 TSH 0.74, free T4 1.08 - Thyroid US on 09/20/23 showed Mild diffuse increased vascularity with parenchymal heterogeneity, which may represent Graves' disease or Cherry's thyroiditis. Assessment & Plan (01/12/2024 5:32 PM EDT): - following with [facility] endocrinology, last seen on 08/12/23 - 08/12/23 TSH 0.74, free T4 1.08 - Thyroid US on 09/20/23 showed Mild diffuse increased vascularity with parenchymal heterogeneity, which may represent Graves' disease or Cherry's thyroiditis. Assessment & Plan (10/03/2023 6:37 AM EST): - following with [facility] endocrinology, last seen on 08/12/23 - 08/12/23 TSH 0.74, free T4 1.08 - Thyroid US on 09/20/23 showed Mild diffuse increased vascularity with parenchymal heterogeneity, which may represent Graves' disease or Cherry's thyroiditis. Class 1 obesity 10/01/2023 10/01/2023 Allergic rhinitis 07/02/2023 Assessment & Plan (12/16/2024 10:33 AM EST): - Prescribed fluticasone (Flonase) 50 MCG/ACT nasal spray 12/15/24 Abnormal TSH 07/02/2023 Mixed anxiety and depressive disorder 05/22/2016 Carpal tunnel syndrome 10/06/2015 Assessment & Plan (12/16/2024 10:30 AM EST): -s/p Left carpal tunnel release on 08/10/15 -s/p Right carpal tunnel release on 02/23/21, -Orthopedist: [facility], last seen in February 2021 postop -Continue Gabapentin -Discontinued NSAIDs due to worsening GERD. -Continue APAP. -Continue brace and activity modification. -Continue HEP. -Recommended to follow-up with her orthopedist for recurrent symptoms Assessment & Plan (10/11/2023 1:12 PM EST): -s/p Left carpal tunnel release on 08/10/15 -s/p Right carpal tunnel release on 02/23/21, -Orthopedist: [facility], last seen in February 2021 postop -Continue Gabapentin -Discontinued NSAIDs due to worsening GERD. -Continue APAP. -Continue brace and activity modification. -Continue HEP. -Recommended to follow-up with her orthopedist for recurrent symptoms Irritable bowel syndrome 01/06/2015 Assessment & Plan (12/16/2024 10:31 AM EST): Continue following with GI Upcoming appt for EGD / colonoscopy Assessment & Plan (01/12/2024 5:32 PM EDT): Continue following with GI Upcoming appt for EGD / colonoscopy Assessment & Plan (10/11/2023 1:21 PM EST): Continue following with GI Upcoming appt for EGD / colonoscopy Asthma 02/09/2013 Assessment & Plan (12/16/2024 10:30 AM EST): - continue albuterol HFA prn - continue working on smoking cessation Assessment & Plan (01/12/2024 5:32 PM EDT): - continue albuterol HFA prn - continue working on smoking cessation Assessment & Plan (10/11/2023 1:28 PM EST): - continue albuterol HFA prn - continue working on smoking cessation Gastroesophageal reflux disease 02/09/2013 Assessment & Plan (12/16/2024 10:30 AM EST): - following with [facility] - upcoming appt with EGD / colonoscopy - work on smoking cessation - avoid NSAIDs or other irritants Assessment & Plan (01/12/2024 5:32 PM EDT): - following with [facility] - upcoming appt with EGD / colonoscopy - work on smoking cessation - avoid NSAIDs or other irritants Assessment & Plan (10/11/2023 1:22 PM EST): - following with [facility] - upcoming appt with EGD / colonoscopy - work on smoking cessation - avoid NSAIDs or other irritants History of Helicobacter pylori infection 013 Abnormal uterine bleeding (AUB) 02/09/2013 Assessment & Plan (12/16/2024 10:31 AM EST): s/p NovaSure endometrial ablation Dec 16 2020 -improved menstrual flow Assessment & Plan (10/11/2023 1:23 PM EST): s/p NovaSure endometrial ablation Dec 16 2020 -improved menstrual flow Encounters * This document contains information received from the source organization and may not represent a complete record from that organization. Date Type Department Care Team Description 12/15/2024 1:00 PM EST Office Visit [facility] [address] [place] [phone] Rachel Riley MD Primary hypertension (Primary Dx); Mild persistent asthma without complication; Bilateral carpal tunnel syndrome; Irritable bowel syndrome, unspecified type; Gastroesophageal reflux disease, unspecified whether esophagitis present; Cherry's thyroiditis; Abnormal uterine bleeding (AUB); Graves disease; Mixed anxiety and depressive disorder; Strain of unspecified muscle, fascia and tendon at shoulder and upper arm level, right arm, initial encounter; Allergic rhinitis, unspecified seasonality, unspecified trigger; Routine screening for STI (sexually transmitted infection); Encounter for immunization 12/15/2024 Patient Outreach [facility] [address] [place] [phone] Rachel Riley MD Care Coordination ([facility] outreach for SDOH PT-1 and food needs-referral completed /) 12/15/2024 Travel 12/09/2024 Telephone [facility] [address] [place] [phone] Rachel Riley MD Chart Prep 11/18/2024 Telephone [facility] [address] [place], [place] [phone] Lizeth Pruitt MA Appointment 11/17/2024 9:20 AM EST Office Visit [facility] [address] [place] [phone] Candace Varma MD Primary hypertension (Primary Dx); Viral URI 11/12/[address] [phone] Rachel Riley MD ER Follow-up 10/13/[address] [phone] Rachel Riley MD ER Follow-up; Nurse Triage 10/10/2024 Orders Only [facility] External Provider, [facility] from Last 3 Months Immunizations Name Administration Dates Next Due DTaP 04/16/1996, 4,07/14/1980,07/09,01/21/1979,1978 Hep B, adult 03/18/2008,06/11/2006,05/06/2006 IPV 06/13/1980, 9,01/21/1979,11/20 Influenza injectable quadriv alent IIV4 with preservative 09/16/2017,10/06/2015 Influenza injectable quadriv alent preservative free 08/30/2022,07/11/2021,09/30/2018,10/01 Influenza, IIV3, injectable 08/23/2014,1 11/11/2010,06/15/2010,09/09 Influenza, seasonal, injecta ble, preservative free 12/15/2024 MMR 04/14/1992,01/27/1980 Pfizer Covid-19 Vaccine 12+ 12/15/2024, 4 Pneumococcal Conjugate PCV 20 12/24/2023 Pneumococcal Polysaccharide [...] Answer Date Recorded Patient Health Questionnaire-9 Score 14 12/15/2024 Patient Health Questionnaire-9 Score 14 12/15/2024 Last PHQ-9: Questionnaire Data Not on file 0 12/15/2024 Housing Stability Answer Date Recorded What is your housing situation today? I have ricardo craven 12/15/[address] you li ve. Do you have problems with any of the following? Not on file 12/15/2024 Food Insecurity Answer Date Recorded Within the past 12 months, y ou worried that your food would run out before you got money to buy more: Never True 2024 Within the past 12 months,th e food you bought just didn't last and you didn't have enough money to get more: Sometimes True 12/15/2024 Transportation Answer Date Recorded In the past 12 months, has l ack of transportation kept you from medical appts, meetings, work or from getting things needed for daily living? No;Yes, it has kept me from medical appointments or getting medications. 12/15/2024 Utilities Answer Date Recorded In the past 12 months, has t he electric, gas, oil or water company threatened to shut off services in your home? Yes 12/15/2024 Depression Answer Date Recorded Patient Health Questionnaire-2 Score 3 12/15/2024 Internet Access Answer Date Recorded Internet Access Q1 Yes 12/15/2024 Internet Access Q2 Not on file 12/15/2024 Comments Unknown Sex and Gender Information Value Date Recorded Sex Assigned at Female 08/20/2022 10:17 AM EDT Legal Sex Female 10:17 AM EDT Gender Identity Female 08/20/2022 10:17 AM EDT Sexual Orientation Straight 08/20/2022 10 :17 AM EDT Last Filed Vital Signs Vital Sign Reading Time Taken Comments Blood Pressure 126/82 12/15/2024 1:03 PM EST Pulse 88 12/15/2024 1:03 PM EST Temperature 36.7 ??C (98 ??F) 12/15/2024 1:03 PM EST Respiratory Rate 19 12/15/2024 1:03 PM EST Oxygen Saturation 99% 11/17/2024 9:34 AM EST Inhaled Oxygen Concentration - - Weight 78.5 kg (173 lb) 12/15/2024 1:03 PM EST Height 160 cm (5' 3 ) 12/15/2024 1:03 PM EST Body Mass Index 30.65 12/15/2024 1:03 PM EST Plan of Treatment Health Maintenance Due Date Last Done Comments CT Colonography 1978 Dental Oral Exam 1978 Dental X-Ray: Bitewings 1978 Dental X-Ray: Full Mouth 1978 FIT DNA/Cologuard 1978 FIT 1978 FOBT 1978 Sigmoidoscopy 1978 Family Planning (PISQ) 1993 Dental Prophylaxis 04/17/2023 10/16/2022 Pap Smear 03/13/2024 03/13/2021 SDOH Screening 10/03/2024 10/03/2023 Depression Monitoring (PHQ-9) 06/14/2025 12/15/2024, 12/15/2024 Mammogram 09/24/2025 09/24/2023, 12/02/2023, 09/02/2023, Additional history exists Alcohol/Substance Use Screening 12/15/2025 12/15/2024 Depression Screening 12/15/2025 12/15/2024, 12/15/19 Tobacco Screening 12/15/2025 12/15/2024 Cervical Cancer Screening 03/13/2026 HPV/Cotest 03/13/2026 03/13/2021, [...] (6 to 49) Years) Completed 12/24/2023, 10/31/2011 COVID-19 Vaccine Completed 12/15/2024, 02/2024, 11/21/2021, Additional history exists Influenza Vaccine Completed 12/15/2024, , 07/11/2021, Additional history exists HIB Vaccines Aged Out No longer eligi [...] Procedure Name Priority Date/Time Associated Diagnosis Comments TSH W/REFLEX TO FT4 Routine 12/02/2024 9 :18 AM EST Primary hypertension BASIC METABOLIC PANEL Routine 12/02/2024 9:18 AM EST Primary hypertension HEPATIC FUNCTION PANEL Routine 12/02/2024 9:18 AM EST Primary hypertension ALBUMIN, RANDOM URINE W/CREATININE Routine 12/02/2024 9:18 AM EST Primary hypertension XR SACRUM COCCYX 2+ VIEWS Routine 10/10/2024 [...] Recently Relevant to Health Maintenance Results * TSH W/Reflex to FT4 (12/02/2024 9:18 AM EST) TSH reflex Free T4 0.56 0.32 - 4.0 uIU/mL [facility] Blood Venous blood specimen / Unknown 12/02/2024 9:18 AM EST 12/02/2024 11:18 AM EST us Candace Varma MD LAB BLOOD ORDERABLES Final Result Performing Organization Address [facility] de Phone Number [facility] [address] [place] [phone] * Albumin, Random Urine W/Creatinine (12/02/2024 9:18 AM EST) Creatinine, Urine 180.25 mg/dL [facility] Microalbumin Urine 8.0 mg/L [facility] Microalbum Creatinine Ratio Ur 4.4 <30 ug/mg cr [facility] Comment:Albumin/Creatinine R atio Reference Ranges: Normal: < 30 ug/mg creatinine Microalbuminuria: 30 - 300 ug/mg creatinineClinical Albuminuria: > 300 ug/mg creatinine Urine 12/02/2024 9:18 AM EST 12/02/2024 11:14 AM EST Candace Varma MD LAB URINE ORDERABLES Final Result Performing Organization Address [facility] de Phone Number [facility] [address] [place] [phone] * Hepatic Function Panel (12/02/2024 9:18 AM EST) Bilirubin, Total 0.2 0.0 - 1.0 mg/dL [facility] Bilirubin, Direct <0.2 0.0 - 0.5 mg/dL [facility] Aspartate Amino Transferase 24 5 - 31 U/L [facility] Alanine Aminotransferase 21 0 - 31 U/L [facility] Total Protein 7.5 6.5 - 8.0 g/dL [facility] Albumin Level 4.1 3.5 - 5.0 g/dL [facility] Alkaline Phosphatase 41 39 - 117 U/L [facility] Blood Venous blood specimen / Unknown 12/02/2024 9:18 AM EST 12/02/2024 11:18 AM EST Candace Varma MD LAB BLOOD ORDERABLES Final Result Performing Organization Address [facility]/ZIP Co de Phone Number [facility] [address] [place] [address] [phone] * (ABNORMAL) Basic Metabolic Panel (12/02/2024 9:18 AM EST) Sodium 139 135 - 145 mmol/L [facility] Potassium 3.9 3.3 - 5.1 mmol/L [facility] Chloride 109(H) 96 - 108 mmol/L [facility] Carbon Dioxide 26 22 - 29 mmol/L [facility] Anion Gap 8(L) 12 - 20 [facility] Urea Nitrogen (BUN) 9 9 - 16 mg/dL [facility] Creatinine, Serum 0.80 0.5 - 1.4 mg/dL [facility] Estimated Glomerular Filt Rate >60 [facility] Comment:Chronic Kidney Disea se: Estimated GFR < 60 mL/min/[id number] Kidney Disease: Estimated GFR < 15 mL/min/1.73m2 Glucose 82 60 - 115 mg/dL [facility] Calcium 8.4 8.4 - 10.2 mg/dL [facility] Blood Venous blood specimen / Unknown 12/02/2024 9:18 AM EST 12/02/2024 11:18 AM EST Candace Varma MD LAB BLOOD ORDERABLES Final Result Performing Organization Address [facility] de Phone Number [facility] [address] [place] [address] [phone] * XR Sacrum Coccyx 2+ Views (10/10/2024 1:15 PM EST) Anatomical Region Laterality Modality Sacrum, Coccyx Radiographic Maryellen ging 10/10/2024 1:15 PM EST Narrative 10/10/2024 2:54 PM EST ? [facility] ?[address] ?[place] [address] ?XRay Report ? Signed ? Patient: Ho,Chandrika ?MR#: [id number] ?? [id number] ? : 1980 ?Acct:[id number] ? Age/Sex: 44 / F ?ADM Date: 12/21/24 ? Loc: HO.ED ? Attending Dr: ? Ordering Physician: Olesya Love ?? Date of Service: 10/10/24 ?? Procedure(s): XR sacrum coccyx min 2V ?? Accession Number(s): [id number] ? cc: Olesya Love; Rachel Riley MD [...] DD/ 1315 ? TD/TT: 10/10/24 1338 ? Blowing Engineer: SL ? Procedure Note Bonnie Slaughter - 10/10/[address] [address] XRay Report Signed Patient: Chandrika TeagueMR#: [id number] : 1980Acct:[id number] Age/Sex: 44 / FADM Date: 10/10/24 Loc: HO.ED Attending Dr: Ordering Physician: Olesya Love Date of Service: 10/10/24 Procedure(s): XR sacrum coccyx min 2V Accession Number(s): [id number] cc: Olesya Love; Rachel Riley MD Exams: Lumbosacral spine 3 views and sacrum and coccyx 3 views HISTORY: Pain status post fall. FINDINGS: Generalized mild endplate spurring. Slightly exaggerated lumbar lordosis without fracture or subluxation. No spondylolysis. Sacrum intact. XR/XR sacrum coccyx min 2V IMPRESSION: Mild degenerative changes. No fracture. Electronically signed by: Nolan Baez MD 10/10/2024 02:51 PM EST RP Dictated By: Nolan Baez MD Signed By: <Electronically signed by Nolan Baez MD in OV> 10/10/24 1451 DD/ 1315 TD/TT: 10/10/24 1338 Blowing Engineer: SILVERIO [facility] External Provider IMG XR PROCEDURES Edited Result - Final * XR Lumbar Spine 2-3 Views (10/10/2024 1:15 PM EST) Anatomical Region Laterality Modality Spine, L-spine Radiographic Maryellen ging 10/10/2024 1:15 PM EST Narrative 10/10/2024 2:54 PM EST ? [facility] ?[address] ?[place] [address] ?XRay Report ? Signed ? Patient: Chandrika Teague ?MR#: [id number] ?? [id number] ? : 1980 ?Acct:[id number] ? Age/Sex: 44 / F ?ADM Date: 10/10/24 ? Loc: HO.ED ? Attending Dr: ? Ordering Physician: Olesya Love ?? Date of Service: 10/10/24 ?? Procedure(s): XR lumbar spine 2-3V ?? Accession Number(s): [id number] ? cc: Olesya Love; Rachel Riley MD [...] DD/ 1315 ? TD/TT: 10/10/24 1338 ? Blowing Engineer: SL ? Procedure Note Donotuseinterpreter, Image - 10/10/[address] [address] XRay Report Signed Patient: Chandrika TeagueMR#: [id number] : 1980Acct:[id number] Age/Sex: 44 / FADM Date: 10/10/24 Loc: HO.ED Attending Dr: Ordering Physician: Olesya Love Date of Service: 10/10/24 Procedure(s): XR lumbar spine 2-3V Accession Number(s): [id number] cc: Olesya Love; Rachel Riley MD Exams: [...] 10/10/24 1451 DD/ 1315 TD/TT: 10/10/24 1338 Blowing Engineer: SILVERIO [facility] External Provider IMG XR PROCEDURES Edited Result - Final * Hm Colonoscopy (11/04/2023) Colonoscopy Normal Normal, Abnormal, BIRADS 0 , BIRADS 1 , BIRADS 2, BIRADS 3 , BIRADS 4+ Historical Provider HEALTH MAINTENANCE Final Result * (ABNORMAL) Lipid Panel with Reflex to Direct LDL (10/08/2023 11:01 AM EST) Triglycerides 69 <150 mg/dL [facility] Comment:Desirable Triglyceri de: less than 150 mg/dLBorderline High Triglyceride 150-199 mg/dLHigh Triglyceride: 200-499 mg/dLVery High Triglyceride: greater than or equal to 5OO mg/dL Cholesterol 211(H) <200 mg/dL [facility] Comment:Desirable Cholestero l: less than 200 mg/dLBorderline High Cholesterol: 200-239 mg/dLHigh Cholesterol: greater than 239 mg/dL LDL Cholesterol Calculated 131(H) <100 mg/dL [facility] Comment:Desirable LDL: less than 100 mg/dLNear Optimal/Above Optimal LDL: 110- 129 mg/dLBorderline High LDL: 130-159 mg/dLHigh LDL: 160-189 mg/dLVery High LDL: greater than or equal to 190 mg/dL HDL Cholesterol 67 >40 mg/dL [facility] Comment:Desirable HDL: great er than 40 mg/dL Note: This HDL assay may give artificially low results in patients with liver disease. Blood 10/08/2023 11:0 1 AM EST 10/08/2023 1:16 PM EST us Rachel Riley MD LAB BLOOD ORDERABLES Final Resul t [facility] [address] [place] [phone] * BI US Breast Limited Left (09/24/2023 2:47 PM EST) Anatomical Region Laterality Modality Breast Left Ultrasound 09/24/2023 2:47 PM EST Narrative 09/24/2023 3:44 PM EST ? [facility] ? [address] ?[place] [address] ? Ultrasound Report ? Signed ? Patient: Chandrika Teague ?MR#: [id number] ?? [id number] ? : 1980 ?Acct:[id number] ? Age/Sex: 43 / F ?ADM Date: 12/05/23 ? Loc: HO.MAMMO ? Attending Dr: Rachel Riley MD ? Ordering Physician: Rachel Riley MD ?? Date of Service: 09/24/23 ?? Procedure(s): US breast LT limited mamm only ?? Accession Number(s): [id number] ? cc: Rachel Riley MD ? EXAMINATION: [...] signed by Scotty Moreno MD in OV> ?09/24/23 1540 ? DD/ 1447 ? TD/TT: ? Blowing Engineer: ? Procedure Note Sukhjinder, Image - 09/24/2023 [facility] [address] [place] [address] Ultrasound Report Signed Patient: Chandrika TeagueMR#: [id number] : 1980Acct:[id number] Age/Sex: 43 / FADM Date: 09/24/23 Loc: HO.MAMMO Attending Dr: Rachel Riley MD Ordering Physician: Rachel Riley MD Date of Service: 09/24/23 Procedure(s): US breast LT limited mamm only Accession Number(s): [id number] cc: Rachel Riley MD EXAMINATION: MM DIAGNOSTIC [...] in OV> 09/24/23 1540 DD/ 1447 TD/TT: Blowing Engineer: us Rachel Riley MD IM US PROCEDURES Final Result * HEPATITIS C AB W/REFL TO HCV RNA, QN, PCR (03/28/2021 10:49 AM EDT) HEPATITIS C ANTIBODY NON-REACT LIZET NON-REACT LIZET [facility] INDEX 0.01 <1.00 [facility] Comment: ?? HCV antibody was non-reactive. There is no laboratory ?? evidence of HCV infection. ?? In most cases, no further action is required. However, if recent HCV exposure is suspected, a test for HCV RNA (test code 42607) is suggested. ?? For additional information please refer to http://IDx.Visualnest/faq/EZH47p1 (This link is being provided for informational/ educational purposes only.) ?? 03/28/2021 10:4 9 AM EDT us Rachel Riley MD HISTORICAL/NON ORDERABLE LABS Fi nal Result Performing Organization Address [facility] Co de Phone Number [facility] [address] * HIV 1/2 ANTIGEN/ANTIBODY,FOURTH GENERATION W/RFL (03/28/2021 10:49 AM EDT) HIV-1/2 ANTIGEN AND ANTIBODIES, 4TH GENERATION W/ REFLEX NON-REACT LIZET NON-REACT LIZET [facility] Comment: HIV-1 antigen and HIV-1/HIV-2 [...] ? For additional information please refer to http://IDx.Visualnest/faq/XBH257 (This link is being provided for informational/ educational purposes only.) ? The performance of this assay has not been clinically validated in patients less than 2 years old. ?? 03/28/2021 10:4 9 AM EDT us Rachel Riley MD LAB BLOOD ORDERABLES Final Resul t Performing Organization Address [facility]/ZIP Co de Phone Number [facility] [address] [place] [address], * THINPREP PAP (03/13/2021 12:00 AM EDT) Clinical Information: None given [facility] COMMENT SEE COMMENT [facility] [...] historic and ?? current clinical information. ?? Hydraulic Riveter : SEE COMMENT [facility] Comment: DMM, CT(ASCP) CT screening location: [address] ??[id number] Infection Shift in vaginal beck suggestive of bacterial vaginosis. [facility] Interpretation/R esult: Negative for intraepithelial lesion or malignancy. [facility] LMP: NONE GIVEN [facility] Prev. BX: NONE GIVEN [facility] Prev. PAP: NONE GIVEN [facility] SOURCE: None given [facility] Statement Of Adequacy: SEE COMMENT [facility] Comment: Satisfactory for evaluation. Endocervical/transformation zone component present. 03/13/2021 Rachel Riley MD LAB PATHOLOGY ORDERABLES Final R esult [facility] [address] [place] [address], * HPV mRNA E6/E7 (03/13/2021 12:00 AM EDT) HPV nRNA E6/E7 Not Detected Not Detected [facility] Comment: Methodology: Millroom Supervisor-Mediated Amplification This assay detects E6/E7 viral messenger RNA (mRNA) from 14 high-risk HPV types (16,18,31,33,35,39,45,51,52,56,58,59,66,68). ? The analytical performance characteristics of this assay have been determined by [employer]. The modifications have not been cleared or approved by the FDA. This assay has been validated pursuant to the CLIA regulations and is used for clinical purposes. ?? For additional information, please refer to http://education.[facility] [employer].NuvoMed/faq/LAA327n7 (This link if provided for information/ educational purposes only.) 03/13/2021 Rachel Riley MD LAB BLOOD ORDERABLES Final Resul t [facility] [address] from Last 3 Months or Most Recently Relevant to Health Maintenance [id number] Care Teams Mat Man Relationship Specialty Start Date End Date Rachel Riley MD [address] [place] [phone] PCP - General Family Medicine 10/21/18
--- OUTSIDE RECORDS SUMMARY | 2024-12-17 16:01 | XMS_ITS | Encounter Summary ---
Author Organization [facility] Address [address] [facility] 7t [place] [address] Care Team Providers Care Ecdis N Navigation Operator Name Role Phone Rachel Riley MD Primary Care Provider [phone] Encounter Details Date Type Department Care Team (Late st Contact Info) Description 10/23/2023 Orders Only [facility] [address] [place], [place] [phone] Rachel Riley MD [address] [place], [place] [phone] Bunion (Primary Dx); Primary osteoarthritis of left [...] as of this encounter Plan of Treatment Not on file documented as of this encounter Visit Diagnoses Diagnosis Bunion- Primary Primary osteoarthritis of left foot documented in this encounter Additional Health Concerns Assessment Noted Time PHQ-9 Depression Total Score: 7 10/03/20 23 11:26 AM EST documented as of this encounter Care Teams Ecdis N Navigation Operator Relationship Specialty Start Date End Date Rachel Riley MD [address] [place] [address] PCP - General Family Medicine 10/21/18 documented as of this encounter
--- OUTSIDE RECORDS SUMMARY | 2024-12-17 16:01 | XMS_ITS | Encounter Summary ---
Author Organization [facility] Address [address] [facility] 7t [place] [address] Care Team Providers Care Salmon Gillnet Vessel Operator Name Role Phone Rachel Riley MD Primary Care Provider [phone] Encounter Details Date Type Department Care Team (Late st Contact Info) Description 10/29/2023 Orders Only [facility] [address] [place], [place] [phone] Rachel Riley MD [address] [place], [place] [phone] Chronic pain of both knees (Primary Dx) [...] documented as of this encounter Care Teams Salmon Gillnet Vessel Operator Relationship Specialty Start Date End Date Rachel Riley MD [address] [place] [address] PCP - General Family Medicine 10/21/18 documented as of this encounter
--- OUTSIDE RECORDS SUMMARY | 2024-12-17 16:01 | XMS_ITS | Encounter Summary ---
Author Organization [facility] [facility] Address [address] [facility] 7t h Floor [address] Care Team Providers Care Manager Oracle Name Role Phone Rachel Riley MD Primary Care Provider [phone] Reason for Visit * Reason Comments Med Refill BP meds Encounter Details Date Type Department Care Team (Late st Contact Info) Description 11/17/2024 9:20 AM EST Office Visit [facility] [address] [place] [phone] Candace Varma MD [address] [place] [phone] Primary hypertension (Primary Dx); Viral URI Social [...] on 11/12/24, pt reported she went to [place] in March when he father and was there until September .States she went to the ER in [place] in March and was given a blood pressuremedication at that time as her blood pressure was high . Pt states she is all out of the medication. Pt brought her pill bottle that she was given in [place] which is Losartan. She reports she hasbeen [...] span of two weeks. Prescribed Losartan in [place] 2 months ago and has been out for about a month. -Restart losartan (Cozaar) 25 MG 11/17/24 -Ordered labs to be checked in 2 weeks 11/17/24. -Has not seen providers in >8 months since being in [place]. Follow-up with PCP(Dr. Riley)in 4 weeks to reestablish care. Relevant Medications losartan (Cozaar) 25 MG tablet Other Relevant Orders Albumin, Random Urine W/Creatinine Hepatic Function Panel Basic Metabolic Panel TSH W/Reflex to FT4 -No evidence of acute disease process. Suspect primary hypertension that was discovered when she was in [place]. Symptoms BP slightly elevated today due to pt being out of er medications. -Refilled medication started in [place]. Ordered routine labs and will have pt follow-up with PCP to reestablish care since returning from [place] after 8 months. -ER precautions discussed. -Seek [...] span of two weeks. Prescribed Losartan in [place] 2 months ago and has been out for about a month. -Restart losartan (Cozaar) 25 MG 11/17/24 -Ordered labs to be checked in 2 weeks 11/17/24. -Has not seen providers in >8 months since being in [place]. Follow-up with PCP(Dr. Riley)in 4 weeks to reestablish care. documented in this encounter Plan of Treatment Not on file documented as of this encounter Procedures Procedure Name Priority Date/Time Associated Diagnosis Comments TSH W/REFLEX TO FT4 Routine 12/02/2024 9:18 AM EST Primary hypertension ALBUMIN, RANDOM URINE W/CREATININE Routine 12/02/2024 9:18 AM EST Primary hypertension HEPATIC FUNCTION PANEL Routine 12/02/2024 9:18 AM EST Primary hypertension BASIC METABOLIC PANEL Routine 12/02/2024 9:18 AM EST Primary hypertension documented in this encounter Results * TSH W/Reflex to FT4 (12/02/2024 9:18 AM EST) TSH reflex Free T4 0.56 0.32 - 4.0 uIU/mL [facility] Blood Venous blood specimen / Unknown 12/02/2024 9:18 AM EST 12/02/2024 11:18 AM EST Candace Varma MD LAB BLOOD ORDERABLES Final Result Performing Organization Address [facility] Co de Phone Number [facility] [address] [place] [phone] * (ABNORMAL) Basic Metabolic Panel (12/02/2024 9:18 AM EST) Pathologist [facility] Sodium 139 135 - 145 mmol/L [facility] Potassium 3.9 3.3 - 5.1 mmol/L [facility] Chloride 109(H) 96 - 108 mmol/L [facility] Carbon Dioxide 26 22 - 29 mmol/L [facility] Anion Gap 8(L) 12 - 20 [facility] Urea Nitrogen (BUN) 9 9 - 16 mg/dL [facility] Creatinine, Serum 0.80 0.5 - 1.4 mg/dL [facility] Estimated Glomerular Filt Rate >60 [facility] Comment:Chronic Kidney Disea se: Estimated GFR < 60 mL/min/[id number] Kidney Disease: Estimated GFR < 15 mL/min/1.73m2 Glucose 82 60 - 115 mg/dL [facility] Calcium 8.4 8.4 - 10.2 mg/dL [facility] Blood Venous blood specimen / Unknown 12/02/2024 9:18 AM EST 12/02/2024 11:18 AM EST Cadnace Varma MD LAB BLOOD ORDERABLES Final Result Performing Organization Address [facility] Co de Phone Number [facility] [address] [place] [phone] Hepatic Function Panel (12/02/2024 9:18 AM EST) Bilirubin, Total 0.2 0.0 - 1.0 mg/dL [facility] Bilirubin, Direct <0.2 0.0 - 0.5 mg/dL [facility] Aspartate Amino Transferase 24 5 - 31 U/L [facility] Alanine Aminotransferase 21 0 - 31 U/L [facility] Total Protein 7.5 6.5 - 8.0 g/dL [facility] Albumin Level 4.1 3.5 - 5.0 g/dL [facility] Alkaline Phosphatase 41 39 - 117 U/L [facility] Blood Venous blood specimen / Unknown 12/02/2024 9:18 AM EST 12/02/2024 11:18 AM EST Candace Varma MD LAB BLOOD ORDERABLES Final Result Performing Organization Address [facility] de Phone Number [facility] [address] [place] [phone] * Albumin, Random Urine W/Creatinine (12/02/2024 9:18 AM EST) Creatinine, Urine 180.25 mg/dL [facility] Microalbumin Urine 8.0 mg/L [facility] Microalbum Creatinine Ratio Ur 4.4 <30 ug/mg cr [facility] Comment:Albumin/Creatinine R atio Reference Ranges: Normal: < 30 ug/mg creatinine Microalbuminuria: 30 - 300 ug/mg creatinineClinical Albuminuria: > 300 ug/mg creatinine Urine 12/02/2024 9:18 AM EST 12/02/2024 11:14 AM EST Candace Varma MD LAB URINE ORDERABLES Final Result Performing Organization Address [facility] Co de Phone Number [facility] [address] [place] [phone] documented in this encounter Visit Diagnoses Diagnosis Primary hypertension- Primary Unspecified essential hypertension Viral URI Acute upper respiratory infections of unspecified site documented in this encounter Additional Health Concerns Assessment Noted Time PHQ-9 Depression Total Score: 7 10/03/20 23 11:26 AM EST documented as of this encounter Care Teams Manager Oracle Relationship Specialty Start Date End Date Rachel Riley MD [address] [place] [address] PCP - General Family Medicine 10/21/18 documented as of this encounter
--- OUTSIDE RECORDS SUMMARY | 2024-12-17 16:01 | XMS_ITS | Encounter Summary ---
Author Organization [employer] Address [address] [facility] [address] 7t [place] [address] Care Team Providers Care Varnish Maker Helper Name Role Phone Rachel Riley MD Primary Care Provider [phone] Reason for Visit * Reason Onset Date Comments Appointment 11/18/2024 Encounter Details Date Type Department Care Team ([facility] st Contact Info) Description 11/18/[address] [facility] [address] [place] [address] Lizeth Pruitt [place] Appointment Social History Tobacco [...] [place] - 11/18/2024 9:37 AM EST T/C- [place] Left Voice Mail to return call to [...] documented as of this encounter Care Teams Varnish Maker Helper Relationship Specialty Start Date End Date Rachel Riley MD [address] [place] [phone] PCP - General Family Medicine 10/21/18 documented as of this encounter
--- OUTSIDE RECORDS SUMMARY | 2024-12-17 16:01 | XMS_ITS | Encounter Summary ---
Author Organization [employer] [facility] Address [address] [place] [address] 7t [place] [address] Care Team Providers Care Valuation Manager Name Role Phone Rachel Riley MD Primary Care Provider [phone] Encounter Details Date Type Department Care Team (Latest Contact Info) Description 06/15/2021 Abstract [facility] CONVERSIONS Dental, Provider, DDS Social History Tobacco [...] on filedocumented in this encounter Care Teams Valuation Manager Relationship Specialty Start Date End Date Rachel Riley MD [address] [place] [phone] PCP - General Family Medicine 10/21/18 documented as of this encounter
--- OUTSIDE RECORDS SUMMARY | 2024-12-17 16:01 | XMS_ITS | Encounter Summary ---
Author Organization [employer] [facility] Address [address] [facility] 7t [place] [address] Care Team Providers Care Administrative Resources Associate Name Role Phone Rachel Riley MD Primary Care Provider [phone] Encounter Details Date Type Department Care Team ([facility] st Contact Info) Description 12/15/2024 1:00 PM EST Office Visit [facility] [address] [place] [address] Rachel Riley MD [address] [place], [place] [phone] Primary hypertension (Primary Dx); Mild persistent asthma [...] STI (sexually transmitted infection); Encounter for immunization Social History Tobacco Use Types Packs/Day Years [...] 19 12/15/2024 1:03 PM EST Oxygen Saturation - - Inhaled Oxygen Concentration - - Weight 78.5 kg (173 lb) 12/15/2024 1:03 PM EST Height 160 cm (5' 3 ) 12/15/2024 1:03 PM EST Body Mass Index 30.65 12/15/2024 1:03 PM EST documented in this encounter Miscellaneous Notes * Assessment & Plan Note - Kimberly Knight MA - 12/16/2024 10:33 AM EST Associated Problem(s): Allergic rhinitis - Prescribed fluticasone (Flonase) 50 MCG/ACT nasal spray 12/15/24 * Assessment & Plan Note - Kimberly Knight MA - 12/16/2024 10:31 AM EST Associated Problem(s): Cherry's thyroiditis -Previously seen by [facility] web interface developer, Dr. Scott Hernandez -TPO positivity. -Currently seeing [facility] endocrinology service and being monitored for Graves' disease * Assessment & Plan Note - Kimberly Knight MA - 12/16/2024 10:31 AM EST Associated Problem(s): Graves disease - following with [facility] endocrinology, last seen on 08/12/23 - 08/12/23 TSH 0.74, free T4 1.08 - Thyroid US on 09/20/23 showed Mild diffuse increased vascularity with parenchymal heterogeneity, which may represent Graves' disease or Cherry's thyroiditis. * Assessment & Plan Note - Kimberly Knight MA - 12/16/2024 10:31 AM EST Associated Problem(s): Abnormal uterine bleeding (AUB) s/p NovaSure endometrial ablation Dec 16 2020 -improved menstrual flow * Assessment & Plan Note - Kimberly Knight MA - 12/16/2024 10:31 AM EST Associated Problem(s): Irritable bowel syndrome Continue following with GI Upcoming appt for EGD / colonoscopy * Assessment & Plan Note - Kimberly Knight MA - 12/16/2024 10:30 AM EST Associated Problem(s): Gastroesophageal reflux disease - following with [facility] GI - upcoming appt with EGD / colonoscopy - work on smoking cessation - avoid NSAIDs or other irritants * Assessment & Plan Note - Kimberly Knight MA - 12/16/2024 10:30 AM EST Associated Problem(s): Primary hypertension Dx 11/17/14 based on two occasion of elevated readings >140/90 in the span of two weeks. Prescribed Losartan in [place] 2 months ago and has been out for about a month. -Restart losartan (Cozaar) 25 MG 11/17/24 -Ordered labs to be checked in 2 weeks 11/17/24. -Has not seen providers in >8 months since being in [place]. Follow-up with PCP(Dr. Riley)in 4 weeks to reestablish care. - Ordered Lipid Panel with Reflex to Direct LDL 12/15/24 * Assessment & Plan Note - Kimberly Knight MA - 12/16/2024 10:30 AM EST Associated Problem(s): Asthma - continue albuterol HFA prn - continue working on smoking cessation * Assessment & Plan Note - Kimberly Knight MA - 12/16/2024 10:30 AM EST Associated Problem(s): Carpal tunnel syndrome -s/p Left carpal tunnel release on 08/10/15 -s/p Right carpal tunnel release on 02/23/21, -Orthopedist: [facility], last seen in February 2021 postop -Continue Gabapentin -Discontinued NSAIDs due to worsening GERD. -Continue APAP. -Continue brace and activity modification. -Continue HEP. -Recommended to follow-up with her orthopedist for recurrent symptoms documented in this encounter Plan of Treatment Scheduled Orders Name Type Priority Associated Diagnoses Orde r Schedule Lipid Panel with Reflex to Direct LDL Lab Routine Primary hypertension Ordered: 12/15/2024 Syphilis Screen Lab Routine Routine screening for STI (sexually transmitted infection) Expected: 12/15/2024 (Approximate), Expires: 12/15/2025 Hepatitis C Antibody with Reflex to HCV, RNA, Quantitative, Real-Time PCR Lab Routine Routine screening for STI (sexually transmitted infection) Expected: 12/15/2024 (Approximate), Expires: 12/15/2025 Hepatitis B Surface Antibody, Qualitative Lab Routine Routine screening for STI (sexually transmitted infection) Expected: 12/15/2024 (Approximate), Expires: 12/15/2025 Hepatitis B Core Antibody, Total Lab Routine Routine screening for STI (sexually transmitted infection) Expected: 12/15/2024 (Approximate), Expires: 12/15/2025 Chlamydia/N. Gonorrhoeae RNA, TMA, Urogenitial Microbiology Routine Routine screening for STI (sexually transmitted infection) Expected: 12/15/2024 (Approximate), Expires: 12/15/2025 HIV-1/2 Antigen and Antibodies, Fourth Generation, with Reflexes Lab Routine Routine screening for STI (sexually transmitted infection) Expected: 12/15/2024 (Approximate), Expires: 12/15/2025 Hepatitis B surface antigen, EIA Lab Routine Routine screening for STI (sexually transmitted infection) Expected: 12/15/2024 (Approximate), Expires: 12/15/2025 Hepatitis A Antibody, Total Lab Routine Routine screening for STI (sexually transmitted infection) Expected: 12/15/2024 (Approximate), Expires: 12/15/2025 documented as of this encounter Visit Diagnoses Diagnosis Primary hypertension- Primary Unspecified essential hypertension Mild persistent asthma without complication Bilateral carpal tunnel syndrome Carpal tunnel syndrome Irritable bowel syndrome, unspecified type Gastroesophageal reflux disease, unspecified whether esophagitis present Cherry's thyroiditis Chronic lymphocytic thyroiditis Abnormal uterine bleeding (AUB) Graves disease Toxic diffuse goiter without mention of thyrotoxic crisis or storm Mixed anxiety and depressive disorder Dysthymic disorder Strain of unspecified muscle, fascia and tendon at shoulder and upper arm level, right arm, initial encounter Allergic rhinitis, unspecified seasonality, unspecified trigger Routine screening for STI (sexually transmitted infection) Screening examination for venereal disease Encounter for immunization documented in this encounter Additional Health Concerns Assessment Noted Time PHQ-9 Depression Total Score: 14 025 1:48 PM EST documented as of this encounter Care Teams Administrative Resources Associate Relationship Specialty Start Date End Date Rachel Rliey MD [address] [place] [phone] PCP - General Family Medicine 10/21/18 documented as of this encounter
--- OUTSIDE RECORDS SUMMARY | 2024-12-17 16:01 | XMS_ITS | Encounter Summary ---
Author Organization [employer] [facility] Address [address] [facility] [address] 7t [place] [address] Care Team Providers Care Mechanical Piping Designer Name Role Phone Rachel Riley MD Primary Care Provider [phone] Encounter Details Date Type Department Care Team (Latest Contact Info) Description 12/15/2024 Travel Social History Tobacco Use Types Packs/Day Years [...] documented as of this encounter Care Teams Mechanical Piping Designer Relationship Specialty Start Date End Date Rachel Riley MD [address] [place] [phone] PCP - General Family Medicine 10/21/18 documented as of this encounter
--- OUTSIDE RECORDS SUMMARY | 2024-12-17 16:01 | XMS_ITS | Encounter Summary ---
Author Organization [facility] Address [address] [place] [address] Care Team Providers Care Fire Adjuster Name Role Phone Rachel Riley MD Primary Care Provider [phone] Reason for Visit * Reason Comments Care Coordination CHW outreach for SDO H PT-1 and food needs-referral completed Encounter Details Date Type Department Care Team (Latest Contact Info) Description 12/15/2024 Patient Outreach [facility] MEDICINE [address] [place] [address] Rachel Riley MD [address] [place], [place] [phone] Care Coordination (CHW outreach for SDOH PT-1 and food needs-referral completed /) Social History Tobacco Use Types Packs/Day Years [...] AM EDT documented as of this encounter Progress Notes * Eulalio Shelton - 12/15/2024 2:58 PM EST CHW Eulalio Shelton, placed outbound call to patient for assistance with SDOH as a referral was received by the provider. Patient's name and were confirmed. Patient screened positive for the following SDOH food insecurities. Patient states family in on SNAP program at this time. CHW referral patient to the local list of pantries in the area for help. PT-1 requested was send out in behalf of patient for future appt. Patient verbalizes understanding, and able to agree with plan to follow up.Patient educated on extended clinic hours on Mondays through Wednesdays, and Walk-In Urgent Care Located in [facility] of [facility]. Patient provided with after-hours line for [facility], , which offer night time triage service and option to transfer to continuity tester provider if needed. documented in this encounter Plan of Treatment Not on file documented as of this encounter Visit Diagnoses Not on filedocumented in this encounter Additional Health Concerns Assessment Noted Time PHQ-9 Depression Total Score: 14 025 1:48 PM EST documented as of this encounter Care Teams Fire Adjuster Relationship Specialty Start Date End Date Rachel Riley MD [address] [place] [address] PCP - General Family Medicine 10/21/18 documented as of this encounter
--- OUTSIDE RECORDS SUMMARY | 2024-12-17 16:01 | XMS_ITS | Encounter Summary ---
Author Organization [facility] Address [address] [place] [address] Care Team Providers Care Mold Bunch Trimmer Name Role Phone Rachel Riley MD Primary Care Provider [phone] Reason for Visit * Reason Onset Date Comments Chart Prep 12/09/2024 Encounter Details Date Type Department Care Team ([facility] st Contact Info) Description 12/09/2024 Telephone [facility] MEDICINE [address] [place] [address] Rachel Riley MD [address] [place], [place] [phone] Chart Prep Social History Tobacco Use Types Packs/Day Years [...] encounter Miscellaneous Notes * Telephone Encounter - Lucina Jackson [place] - 12/09/2024 12:56 PM EST Chart Prep Labs: not applicable Images: not applicable Vaccines due: Covid Due and Flu Due Referrals: Not Applicable Screenings: Not Applicable Overdue care gaps: Sbirt, SDOH, PHQ-9, and Oral Health documented in this encounter Plan of Treatment Not on file documented as of this encounter Visit Diagnoses Not on filedocumented in this encounter Additional Health Concerns Assessment Noted Time PHQ-9 Depression Total Score: 7 10/03/20 23 11:26 AM EST documented as of this encounter Care Teams Mold Bunch Trimmer Relationship Specialty Start Date End Date Rachel Riely MD [address] [place] [address] PCP - General Family Medicine 10/21/18 documented as of this encounter
[2024-12-17 16:30] LABS: Cholesterol 172 mg/dL (<200); HDL Cholesterol 55 mg/dL (>40); LDL Cholesterol Calculated 96 mg/dL (<100); Triglycerides 106 mg/dL (<150)
[2024-12-17 17:03] LABS: Reflex LDLD? No
[2024-12-18 07:46] LABS: Syphilis Screen Nonreactive (Nonreactive)
[2024-12-18 08:01] LABS: Hepatitis A Antibody IgG Nonreactive (Nonreactive)
[2024-12-18 08:08] LABS: HBS Num1 21.45 mIU/mL (0-7.99); HBc Num1 0.07 S/CO (0.00-0.79); HBsAGNum1 0.42 S/CO (0.00-0.99); HIV AB/AG Nonreactive (Nonreactive); HIV Num 1 0.06 S/CO (0.00-0.99); Hepatitis B Core Antibody Nonreactive (Nonreactive); Hepatitis B Surface Antigen Negative (Negative); ~HepC Num1 0.14 S/CO (0.00-0.79); ~Hepatitis B Surface Antibody REACTIVE (Nonreactive); ~Hepatitis C Antibody Nonreactive (Nonreactive)
[2024-12-18 10:50] LABS: CT PCR NOT DETECTED (Not Detect.); NG PCR NOT DETECTED (Not Detect.)
== END 2024-12-17 13:24 | disposition home or self-care (01) ==
LOC: HO.HHCL 13:23
PROVIDERS: Visit Provider Family Medicine
DX: Z11.3 Encounter for screening for infections with a predominantly sexual mode of transmission (principal); I10 Essential (primary) hypertension
CPT/HCPCS: 80061; 86704; 86706; 86708; 86780; 86803; 87340; 87389; 87491; 87591

== ENCOUNTER 2025-10-07 09:49 | Outpatient (REF) | payer MEDICAID, SELFPAY ==
--- OUTSIDE RECORDS SUMMARY | 2025-10-04 13:30 | XMS_ITS | Encounter Summary ---
Author Organization [employer] Address [address] [place] [address] Care Team Providers Care Drying Tumbler Operator Name Role Phone Rachel Riley MD Primary Care Provider [phone] Encounter Details Date Type Department Care Team (Late st Contact Info) Description 10/04/2025 1:30 PM EST Office Visit [facility] OPTOMETRY [address] [place] [address] Grisel Chapin, OD [address] [place] [address] Nuclear sclerosis of both eyes (Primary Dx); Pinguecula of both eyes; Presbyopia Social History Tobacco Use Types Packs/Day Years [...] housing situation today? I have ricardo craven 05/11/[address] you li ve. Do you have problems with any of the following? None of the above 05/11/2025 Food Insecurity Answer Date Recorded Within the past 12 months, y ou worried that your food would run out before you got money to buy more: Never True 05/11/2025 Within the past 12 months,th e food you bought just didn't last and you didn't have enough money to get more: Never True Transportation Answer Date Recorded In the past 12 months, has l ack of transportation kept you from medical appts, meetings, work or from getting things needed for daily living? No 05/11/2025 Utilities Answer Date Recorded In the past 12 months, has t he electric, gas, oil or water company threatened to shut off services in your home? No 05/11/2025 Depression Answer Date Recorded Patient Health Questionnaire-2 Score 1 06/09/2025 Internet Access Answer Date Recorded Internet Access Q1 Yes 12/15/2024 Internet Access Q2 Not on file 12/15/2024 Comments Unknown Sex and Gender Information Value Date Recorded Sex Assigned at Female 08/20/2022 10:17 AM EDT Legal Sex Female 10:17 AM EDT Gender Identity Female 08/20/2022 10:17 AM EDT Sexual Orientation Straight 08/20/2022 10 :17 AM EDT documented as of this encounter Progress Notes * Grisel Chapin, OD - 10/04/2025 1:30 PM EST Eye Care Progress Note Patient ID: Chandrika Teague is a 45 y.o. female. HPI Patient presents for comprehensive eye exam and follow up on cataracts both eyes (OU). Patient states she was told she has cataracts at her last exam. Patient reports an episode of swelling and discomfort of inner nasal corner right eye (OD). She says this cleared up on its own after a few days. Patient uses glasses for reading. RISHI: 2 years ago Last edited by Grisel Chapin, OD on 10/04/2025 2:30 PM. Current Medications[1] Medical History[2] Surgical History[3] Family History[4] Tobacco Use: Medium Risk (10/04/2025) Tobacco Smoking Tobacco Use: Former Smokeless Tobacco Use: Never Passive Exposure: Never Allergies[5] ROS Positive for: Eyes Negative for: Constitutional, Gastrointestinal, Neurological, Skin, Genitourinary, Musculoskeletal,HENT, Endocrine, Cardiovascular, Respiratory, Psychiatric, Allergic/Imm, Heme/Lymph Last edited by Grisel Chapin, OD on 10/04/2025 1:32 PM. Base Eye Exam Visual Acuity (Snellen - Linear) Right Left Dist sc 20/20-2 20/25+1 Tonometry (iCare , 1:45 PM) Right Left Pressure 19 19 Pupils Pupils APD Right PERRL None Left PERRL None Visual Zuleta (Counting fingers) Left Right Full Full Extraocular Movement Right Left Full Full Neuro/Psych Oriented x3: Yes Mood/Affect: Normal Dilation Both eyes: 1.0% tropicamide @ 2:05 PM Slit Lamp and Fundus Exam External Exam Right Left External Normal Normal Slit Lamp Exam Right Left Lids/Lashes Clean and clear Clean and clear Conjunctiva/Sclera Ping T&N Ping T&N Cornea Clear Clear Anterior Chamber Deep and quiet, angles open Deep and quiet, angles open Iris Flat Flat Lens Tr NS Tr NS Fundus Exam Right Left Vitreous Clear Clear Disc Alcoa with distinct margins Alcoa with distinct margins C/D Ratio Vertical 0.40 0.40 C/D Ratio Horizontal 0.40 0.40 Macula Flat, even pigmentation Flat, even pigmentation Vessels AV 2/3, normal course and caliber AV 2/3, normal course and caliber Periphery No holes/tears/detachments 360 No holes/tears/detachments 360 Refraction Manifest Refraction (Auto) Sphere Cylinder [place] Dist [place] Add Right +0.75 -0.75 048 Left +0.75 -0.75 116 Manifest Refraction #2 (Subjective) Sphere Cylinder [place] Dist VA Add Right +0.25 -0.75 058 20/20 +1.50 Left [place] -0.50 105 20/20 +1.50 Final Rx Sphere Cylinder [place] Add Right +0.25 -0.75 058 +1.50 Left [place] -0.50 105 +1.50 Expiration Date: 10/04/2026 Assessment and Plan Diagnoses and all orders for this visit: Nuclear sclerosis of both eyes - Patient educated on findings. Visually insignificant both eyes. Monitor. Pinguecula of both eyes - Patient educated on findings. Advised to RTC if inflammation/redness/irritation occurs. Discussedthe importance of UV protection including wearing sunglasses Presbyopia - Dispensed updated spec Rx RTC in 2 years for comprehensive eye exam or sooner as needed Grisel Chapin, OD 10/04/2025, 2:33 PM Cargo Router Source: __ None _x_ Bilingual Staff __ Qualified Staff Children Counselor __ Telephone Cargo Router; ID# __ Cargo Router brought by patient (family member, friend, TRAFFIC I MANAGER, etc) __ In person kier tender __ Ipad Cargo Router; ID#: Language Spoken During Exam: Namibian [1] Current Outpatient Medications Medication Sig Dispense Refill acetaminophen (Tylenol) 500 MG tablet Take 2 tablets (1,000 mg) by mouth every 8 (eight) hours if needed for mild pain. 45 tablet 3 albuterol 108 (90 Base) MCG/ACT inhaler Inhale 2 puffs every 4 (four) hours. 18 g 3 Bisacodyl EC 5 MG EC tablet TAKE 2 TABLETS BY MOUTH AT NOON THE DAY BEFORE THE PROCEDURE Blood Pressure Monitor kit Check blood pressure once daily and as needed 1 kit 0 cetirizine (ZyrTEC) 10 MG tablet TAKE 1 TABLET BY MOUTH DAILY IN THE MORNING 90 tablet 1 cyclobenzaprine (Flexeril) 10 MG tablet TAKE 1 TABLET BY MOUTH AT BEDTIME NEEDED FOR MUSCLE SPASMS 30 tablet 2 escitalopram (Lexapro) 5 MG tablet Take 1 tablet by mouth once daily for 1 week, then increase to 2tablets daily 60 tablet 2 fluticasone (Flonase) 50 MCG/ACT nasal spray USE 1 SPRAY IN EACH NOSTRIL ONCE DAILY 48 g 0 gabapentin (Neurontin) 300 MG capsule TAKE 1 CAPSULE BY MOUTH TWICE DAILY OR MAY TAKE 2 CAPSULES DAILY AT NIGHT 60 capsule 3 Lansoprazole (PREVACID PO) Take by mouth. losartan (Cozaar) 25 MG tablet TAKE 1 TABLET BY MOUTH EVERY DAY 90 tablet 0 melatonin tablet TAKE 1 TO 2 TABLETS BY MOUTH DAILY AT BEDTIME NEEDED 60 tablet 3 polyethylene glycol, PEG, 3350 (Glycolax) 17 GM/SCOOP powder USE DIRECTED 1 DAY BEFORE PROCEDUREFOR BOWEL MOVEMENT No current facility-administered medications for this visit. [2] Past Medical History: Diagnosis Date Anemia Asthma Bleeding gums Disease of thyroid gland GERD (gastroesophageal reflux disease) Kidney trouble [3] Past Surgical History: Procedure Laterality Date PROSTHODONTIC PROCEDURE WISDOM TOOTH EXTRACTION [4] Family History Problem Relation Name Age of Onset Glaucoma Mother [5] Allergies Allergen Reactions Gramineae Pollens Other Reaction(s): Sneezing Aspirin Hives Penicillins Hives documented in this encounter Plan of Treatment Upcoming Encounters Date Type Department Care Team (Late st Contact Info) Description 11/01/2025 1:00 PM EST Office Visit [facility] MEDICINE [address] [place], [place] [phone] Rachel Riley MD [address] [place] [phone] 11/15/2025 1:30 PM EST Office Visit [facility] ADULT DENTAL [address] [place], [place] [phone] Blanca Greer documented as of this encounter Visit Diagnoses Diagnosis Nuclear sclerosis of both eyes- Primary Pinguecula of both eyes Presbyopia documented in this encounter Additional Health Concerns Assessment Noted Time PHQ-9 Depression Total Score: 14 12/15/ 025 1:48 PM EST documented as of this encounter Care Teams Drying Tumbler Operator Relationship Specialty Start Date End Date Rachel Riley MD [address] [place] [id number] PCP - General Family Medicine 08/12/25 documented as of this encounter
--- OUTSIDE RECORDS SUMMARY | 2025-10-07 11:45 | XMS_ITS | Encounter Summary ---
Author Organization [employer] Address [address] [place] [address] Care Team Providers Care Pond Supervisor Name Role Phone Rachel Riley MD Primary Care Provider [phone] Encounter Details Date Type Department Care Team (Latest Contact Info) Description 10/04/2025 Travel Social History Tobacco Use Types Packs/Day [...] Description 11/01/2025 1:00 PM EST Office Visit [facility] [address] [place] [address] Rachel Riley MD [address] [place] [phone] 11/15/2025 1:30 PM EST Office Visit [facility] ADULT DENTAL [address] [place] [address] Blanca Greer documented as of this encounter Visit Diagnoses Not on filedocumented in this encounter Additional Health Concerns Assessment Noted Time PHQ-9 Depression Total Score: 14 025 1:48 PM EST documented as of this encounter Care Teams Pond Supervisor Relationship Specialty Start Date End Date Rachel Riley MD [address] [place] [phone] PCP - General Family Medicine 08/12/25 documented as of this encounter
--- OUTSIDE RECORDS SUMMARY | 2025-10-07 11:45 | XMS_ITS | Clinical Summary ---
Author Organization [employer] Address [address] [place] [address] Care Team Providers Care Concrete Puddler Name Role Phone Rachel Riley MD Primary Care Provider [phone] Allergies Active Allergy Reactions Criticality Noted Date Comments Aspirin Hives 06/25/2012 Gramineae Pollens High 02/01/2023 Other Reaction(s): Sneezing Penicillins Hives 06/25/2012 Medications * This document contains information received from the source organization and may not represent a complete record from that organization. Bisacodyl EC 5 MG EC tablet TAKE 2 TABLETS BY MOUTH AT NOON THE DAY BEFORE THE PROCEDURE 02/19/20 23 Active polyethylene glycol, PEG, 3350 (Glycolax) [...] NEEDED 60 tablet 3 01/27/20 24 Active albuterol 108 (90 Base) MCG/ACT inhaler Inhale 2 puffs every 4 (four) hours. 18 g 3 12/15/19 25 Active fluticasone (Flonase) 50 MCG/ACT nasal sprayIndications :Allergic rhinitis, unspecified seasonality, unspecified trigger USE 1 SPRAY IN EACH NOSTRIL ONCE DAILY 48 g 12/15/19 25 Active Lansoprazole (PREVACID PO) Take by mouth. 07/06/20 13 Active escitalopram (Lexapro) 5 MG tablet Take 1 tablet by mouth once daily for 1 week, then increase to 2 tablets daily 60 tablet 2 05/11/20 25 Active gabapentin (Neurontin) 300 MG capsule TAKE 1 CAPSULE BY MOUTH TWICE DAILY OR MAY TAKE 2 CAPSULES DAILY AT NIGHT 60 capsule 3 06/03/20 25 Active cetirizine (ZyrTEC) 10 MG tablet TAKE 1 TABLET BY MOUTH DAILY IN THE MORNING 90 tablet 1 06/23/20 25 Active cyclobenzaprine (Flexeril) 10 MG tabletIndication s:Muscle pain TAKE 1 TABLET BY MOUTH AT BEDTIME NEEDED FOR MUSCLE SPASMS 30 tablet 2 5 4:09 PM EST 08/10/20 25 Active losartan (Cozaar) 25 MG tabletIndication s:Primary hypertension TAKE 1 TABLET BY MOUTH EVERY DAY 90 tablet 5 4:09 PM EST 09/14/20 25 Active losartan (Cozaar) 25 MG tabletIndication s:Primary hypertension TAKE 1 TABLET BY MOUTH EVERY DAY 90 tablet 05/12/20 25 025 Discontinued Active Problems Problem Noted Date Diagnosed Date Anxiety 08/10/2025 Depression 08/10/2025 Assessment & Plan (08/23/2025 10:52 AM EST): PHQ-9 score 14 and MARNI-7 score 1 in May 2025 Continue escitalopram 5 mg daily, question about medication adherence Abdominal pain 04/16/2025 Abnormal MRI, breast 04/16/2025 Acute epigastric pain 04/16/2025 Arthritis of carpometacarpal (CMC) joint of righ t thumb 04/16/2025 Atypical chest pain 04/16/2025 Colitis 04/16/2025 FH: breast cancer in first degree relative 04/16 Iron deficiency anemia 04/16/2025 Menorrhagia 04/16/2025 Numbness of left hand 04/16/2025 Potential exposure to STD 04/16/2025 Shoulder pain 04/16/2025 Assessment & Plan (08/23/2025 10:55 AM EST): - patient requests cyclobenzaprine script; will send a refill - reassess her musculoskeletal problems at next visit Well woman exam with routine gynecological exam 04/16/2025 Adjustment disorder with mixed anxiety and depre [...] Pt was self-referred to OP therapy with [facility] and completed the intake process after today's session. clinician will provide additional support during next medical appointment. Bereavement 12/15/2024 Primary hypertension 11/17/2024 Assessment & Plan (08/14/2025 12:14 AM EDT): -Goal BP < 130/80 per ACC/AHA guideline (Treatment threshold >=140/90) -BP borderline today -Continue working on lifestyle modifications -Recommended self-monitoring BP. -Continue current medications: losartan 25 mg daily - Follow-up for BP check in 3 weeks with our nurse. If home SBP greater than 140 and/or clinic SBP greater than 150, increase losartan to 50 mg daily Assessment & Plan (05/16/2025 5:22 PM EDT): -Goal BP < 130/80 per ACC/AHA guideline (Treatment threshold >=140/90) -BP borderline today -Continue working on lifestyle modifications -Recommended self-monitoring BP. -Continue current medications: losartan 25 mg daily - Follow-up for BP check in 3 weeks with our nurse. If home SBP greater than 140 and/or clinic SBP greater than 150, increase losartan to 50 mg daily Assessment & Plan (12/22/2024 11:56 AM EST): -Goal BP < 140/90 per JNC-8 and < 130/80 per ACC/AHA guideline (Treatment threshold >=140/90) -BP within acceptable range today -Continue working on lifestyle modifications -Recommended self-monitoring BP. -Continue current medications: losartan 25 mg daily Assessment & Plan (11/17/2024 10:01 AM EST): Dx 11/17/14 based on two occasion of elevated readings >140/90 in the span of two weeks. Prescribed Losartan in [place] 2 months ago and has been out for about a month. -Restart losartan (Cozaar) 25 MG 11/17/24 -Ordered labs to be checked in 2 weeks 11/17/24. -Has not seen providers in >8 months since being in [place]. Follow-up with PCP(Dr. Riley) in 4 weeks to reestablish care. History of iron deficiency anemia 01/12/2024 Assessment & Plan (01/12/2024 5:34 PM EDT): - history of iron infusion - likely due to AUB / fibroids - improved after endometrial ablation - still following with spray drier operator helper At high risk for breast cancer 10/11/2023 [...] (12/16/2024 10:31 AM EST): -Previously seen [place] [facility] [place], Dr. Scott Hernandez -TPO positivity. -Currently seeing [facility] endocrinology service and being monitored for Graves' disease Assessment & Plan (10/11/2023 1:21 PM EST): -Previously seen by [facility] [place], Dr. Scott Hernandez -TPO positivity. -Currently seeing [facility] endocrinology service and being monitored for Graves' disease Graves disease 10/03/2023 Assessment & Plan (12/16/2024 10:31 AM EST): - following with [facility] endocrinology, last seen on 08/12/23 - 08/12/23 TSH 0.74, free T4 1.08 - Thyroid US on 09/20/23 showed Mild diffuse increased vascularity with parenchymal heterogeneity, which may represent Graves' disease or Cherry's thyroiditis. Assessment & Plan (01/12/2024 5:32 PM EDT): - following with [facility] endocrinology, last seen on 08/12/23 - 08/12/23 TSH 0.74, free T4 1.08 - Thyroid US on 09/20/23 showed Mild diffuse increased vascularity with parenchymal heterogeneity, which may represent Graves' disease or Cherry's thyroiditis. Assessment & Plan (10/03/2023 6:37 AM EST): - following with [facility] endocrinology, last seen on 08/12/23 - 08/12/23 [...] 07/02/2023 Mixed anxiety and depressive disorder 05/22/2016 Assessment & Plan (08/23/2025 10:52 AM EST): PHQ-9 score 14 and MARNI-7 score 1 in May 2025 Continue escitalopram 5 mg daily, question about medication adherence Assessment & Plan (05/16/2025 5:28 PM EDT): MARNI-7 score 12; PHQ 2 score 1 Patient would like to start a medication for anxiety/depression Start escitalopram 5 mg daily for 1 week, then increase to 10 mg daily Assess the effectiveness of escitalopram (and its side effect) at the next nurse visit for BP check, with MARNI-7 and PHQ-9. Carpal tunnel syndrome 10/06/2015 Assessment & Plan (05/16/2025 5:25 PM EDT): -s/p Left carpal tunnel release on 08/10/15 -s/p Right carpal tunnel release on 02/23/21, -Orthopedist: [facility], last seen in February 2021 postop -Continue Gabapentin -Discontinued NSAIDs due to worsening GERD. -Continue APAP. -Continue brace and activity modification. -Continue HEP. -Recommended to follow-up with her orthopedist for recurrent symptoms Assessment & Plan (12/16/2024 10:30 AM EST): -s/p Left carpal tunnel release on 08/10/15 -s/p Right carpal tunnel release on 02/23/21, -Orthopedist: [facility], last seen in February 2021 postop -Continue Gabapentin -Discontinued NSAIDs due to worsening GERD. -Continue APAP. -Continue brace and activity modification. -Continue HEP. -Recommended to follow-up with her orthopedist for recurrent symptoms Assessment & Plan (10/11/2023 1:12 PM EST): -s/p Left carpal tunnel release on 08/10/15 -s/p Right carpal tunnel release on 02/23/21, -Orthopedist: [facility], last seen in February 2021 postop -Continue [...] / colonoscopy Asthma 02/09/2013 Assessment & Plan (08/23/2025 10:52 AM EST): - continue albuterol HFA prn - continue working on smoking cessation Assessment & Plan (05/11/2025 9:00 AM EDT): - continue albuterol HFA prn - continue working on smoking cessation Assessment & Plan (12/16/2024 10:30 AM EST): - continue albuterol HFA prn - continue working on smoking cessation Assessment & Plan (01/12/2024 5:32 PM EDT): - continue albuterol HFA prn - continue working on smoking cessation Assessment & Plan (10/11/2023 1:28 PM EST): - continue albuterol HFA prn - continue working on smoking cessation Gastroesophageal reflux disease 02/09/2013 Assessment & Plan (08/23/2025 10:53 AM EST): - following with [facility] - upcoming appt with EGD / colonoscopy - work on smoking cessation - avoid NSAIDs or other irritants - currently prescribed lansoprazole. Check if patient needs to be on long-term Assessment & Plan (12/16/2024 10:30 AM EST): - following with [facility] - upcoming appt with EGD / colonoscopy - work on smoking cessation - avoid NSAIDs or other irritants Assessment & Plan (01/12/2024 5:32 PM EDT): - following with [facility] - upcoming appt with EGD / colonoscopy - work on smoking cessation - avoid NSAIDs or other irritants Assessment & Plan (10/11/2023 1:22 PM EST): - following with [facility] - upcoming appt with EGD / [...] Encounters Date Type Department Care Team Description 10/04/2025 1:30 PM EST Office Visit [facility] [place] [address] Tarka, Grisel, OD Nuclear sclerosis of both eyes (Primary Dx); Pinguecula of both eyes; Presbyopia 10/04/2025 Travel 09/14/2025 Refill [facility] [address] [place] [address] Rachel Riley MD Primary hypertension 08/23/2025 Orders Only [facility] [address] [place] [phone] Rachel Riley MD Primary hypertension (Primary Dx); Other iron deficiency anemia; Cherry's thyroiditis; Screening for diabetes mellitus; Screening for lipid disorders; Routine screening for STI (sexually transmitted infection) 08/10/2025 1:00 PM EDT Office Visit [facility] [address] [place] [address] [phone] Rachel Riley MD Primary hypertension (Primary Dx); Other iron deficiency anemia; Mixed anxiety and depressive disorder; Anxiety; Moderate episode of recurrent major depressive disorder (CMS/HCC) (HCC); Muscle pain; Mild persistent asthma without complication; Gastroesophageal reflux disease, unspecified whether esophagitis present; Chronic pain of both shoulders 08/10/2025 Travel 08/09/[address] [phone] Ivet Adhikari DDS chartprep 07/22/2025 2:00 PM EDT Office Visit [facility] [address] [place] [phone] Steve Juarez DMD from Last 3 Months Immunizations Immunization Administration Dates Next Due DTaP 04/16/1996, 4,07/14/1980,07/09,01/21/1979,1978 [...] free, adsorbed 12/07/2021 Tdap 10/31/2011 Varicella 10/31/2011,06/15/2010 Family History Medical History Relation Name Comments Glaucoma Mother Relation Name Status Comments Mother Social History Tobacco Use Types Packs/Day Years [...] Q2 Not on file 12/15/2024 Comments Unknown Intention Date Recorded No desire to become (finding) 0 12/15/2024 Sex and Gender Information Value Date Recorded Sex Assigned at Female 08/20/2022 10:17 AM EDT Legal Sex Female 10:17 AM EDT Gender Identity Female 08/20/2022 10:17 AM EDT Sexual Orientation Straight 08/20/2022 10 :17 AM EDT Last Filed Vital Signs Vital Sign Reading Time Taken Comments Blood Pressure 132/84 08/10/2025 1:06 PM EDT Pulse 91 08/10/2025 1:05 PM EDT Temperature 36.6 C (97.8 F) 08/10/2025 1:05 PM EDT Respiratory Rate 20 08/10/2025 1:05 PM EDT Oxygen Saturation 99% 08/10/2025 1:05 PM EDT Inhaled Oxygen Concentration - - Weight 75.8 kg (167 lb) 08/10/2025 1:05 PM EDT Height 160 cm (5' 3 ) 08/10/2025 1:05 PM EDT Body Mass Index 29.58 08/10/2025 1:05 PM EDT Plan of Treatment Upcoming Encounters Date Type Department Care Team (Late st Contact Info) Description 11/01/2025 1:00 PM EST Office Visit [facility] [address] [place] [phone] Rachel Riley MD [address] [place] [address] 11/15/2025 1:30 PM EST Office Visit [facility] [address] [place] [address] Blanca Greer Health Maintenance Due Date Last Done Comments CT Colonography 1980 FIT DNA/Cologuard 1978 FIT 1980 FOBT 1980 Sigmoidoscopy 1980 Dental Prophylaxis 04/17/2023 10/16/2022 COVID-19 Vaccine ( season) 2025 12/15/2024, 12/24/2023, 11/21/2021, Additional history exists Influenza Vaccine (#1) 2025 , 08/30/2022, 07/11/2021, Additional history exists Mammogram 09/24/2025 09/24/2023, 02/2023, 09/24/2023, Additional history exists Depression Monitoring 12/10/2025 06/09/2025, 025 Alcohol/Substance Use Screening 12/15/2025 12/15/2024 Family Planning (PISQ) 12/22/2025 12/22/2024 Dental Oral Exam 01/21/2026 07/22/2025 Cervical Cancer Screening 03/13/2026 HPV/Cotest 03/13/2026 03/13/2021, 09/16/2017 Pap Smear 03/13/2026 03/13/2021 Disability Screening 05/11/2026 05/11/2025 SDOH Screening 05/11/2026 05/11/2025 Dental X-Ray: Bitewings 07/23/2026 07/22/2025 Tobacco Screening 10/04/2026 10/04/2025 Zoster Vaccines (1 of 2) 2028 Dental X-Ray: Full Mouth 07/23/2028 07/22/2025 Lipid Panel 12/17/2029 12/17/2024, 10/08/2023 DTaP/Tdap/Td Vaccines (10 - Td or Tdap) 12/07/2031 12/07/2021, 10/31/2011, 01/06/2008, Additional history exists Colonoscopy 12/25/2033 12/26/2023, 11/04/2023 Colorectal Cancer Screening 12/25/2033 RSV Patients and Patients Aged 60 years or older (1 - 1-dose 75+ series) 2053 IPV Vaccines Completed 06/13/1980, 06/21, 01/21/1979, Additional history exists Hepatitis B Vaccines Completed 03/18/2008, 06/11/2006, 05/06/2006 Pneumococcal Vaccine: Pediatrics (0 to 5 Years) and At-Risk Patients (6 to 49) Years Completed 12/24/2023, 10/31/2011 HIV Screening Completed 12/17/2024, 03/28/2021 Hepatitis C Screening Completed 12/17/2024, 021 HIB Vaccines Aged Out No longer eligi ble based on patient's age to complete this topic HPV Vaccines Aged Out No longer eligi ble based on patient's age to complete this topic Hepatitis A Vaccines Aged Out No long er eligible based on patient's age to complete this topic Meningococcal B Vaccine Aged Out No l onger eligible based on patient's age to complete [...] Procedure Name Priority Date/Time Associated Diagnosis Comments CASE PRESENTATION, DETAILED AND EXTENSIVE TREATMENT PLANNING Routine 07/22/2025 2:00 PM EDT INTRAORAL - COMPLETE SERIES OF RADIOGRAPHIC IMAGES Routine 07/22/2025 2:00 PM EDT PERIODIC ORAL EVALUATION - ESTABLISHED PATIENT Routine 07/22/2025 2:00 PM EDT 21 O AMALGAM FILLING Routine 07/22/2025 12:00 AM EDT 20 O AMALGAM FILLING Routine 07/22/2025 12:00 AM EDT 18 O AMALGAM FILLING Routine 07/22/2025 12:00 AM EDT 8 L AMALGAM FILLING Routine 07/22/2025 1 2:00 AM EDT 10 L AMALGAM FILLING Routine 07/22/2025 12:00 AM EDT 9 ML COMPOSITE FILLING Routine 07/22/2025 12:00 AM EDT 8 ML COMPOSITE FILLING Routine 07/22/2025 12:00 AM EDT 14 O AMALGAM FILLING Routine 07/22/2025 12:00 AM EDT 3 MO AMALGAM FILLING Routine 07/22/2025 12:00 AM EDT 2 O AMALGAM FILLING Routine 07/22/2025 1 2:00 AM EDT HEPATITIS C AB W/REFL TO HCV RNA, QN, PCR Routine 12/17/2024 1:27 PM EST Routine screening for STI (sexually transmitted infection) HIV 1/2 ANTIGEN/ANTIBODY, FOURTH GENERATION W/RFL Routine 12/17/2024 1:27 PM EST Routine screening for STI (sexually transmitted infection) LIPID PANEL WITH REFLEX TO DIRECT LDL Routine 12/17/2024 1:27 PM EST Primary hypertension HM COLONOSCOPY Routine 11/04/2023 BI US BREAST LIMITED LEFT Routine 09/24/2023 2:47 PM EST PROPHYLAXIS - ADULT Routine 10/16/2022 1 0:00 AM EST HPV MRNA E6/E7 Routine 03/13/2021 12:00 AM EDT THINPREP PAP Routine 03/13/2021 12:00 AM EDT from Last 3 Months or Most Recently Relevant to Health Maintenance Results * Lipid Panel with Reflex to Direct LDL (12/17/2024 1:27 PM EST) Triglycerides 106 <150 mg/dL [facility] Comment:Desirable Triglyceri de: less than 150 mg/dLBorderline High Triglyceride 150-199 mg/dLHigh Triglyceride: 200-499 mg/dLVery High Triglyceride: greater than or equal to 5OO mg/dL Cholesterol 172 <200 mg/dL [facility] Comment:Desirable Cholestero l: less than 200 mg/dLBorderline High Cholesterol: 200-239 mg/dLHigh Cholesterol: greater than 239 mg/dL LDL Cholesterol Calculated 96 <100 mg/dL [facility] Comment:Desirable LDL: less than 100 mg/dLNear Optimal/Above Optimal LDL: 110- 129 mg/dLBorderline High LDL: 130-159 mg/dLHigh LDL: 160-189 mg/dLVery High LDL: greater than or equal to 190 mg/dL HDL Cholesterol 55 >40 mg/dL [facility] Comment:Desirable HDL: great er than 40 mg/dL Note: This HDL assay may give artificially low results in patients with liver disease. Blood 12/17/2024 1:27 PM EST 12/17/2024 4:04 PM EST us Rachel Riley MD LAB BLOOD ORDERABLES Final Resul t Performing Organization Address [facility] Co de Phone Number [facility] [address] [place] [phone] * Hepatitis C Antibody with Reflex to HCV, RNA, Quantitative, Real-Time PCR (12/17/2024 1:27 PM EST) Hepatitis C Antibody Nonreactive Nonreactive [facility] Comment:Antibodies to HCV no t detected; does not exclude early acuteHCV infection. Blood Venous blood specimen / Unknown 12/17/2024 1:27 PM EST 12/17/2024 4:04 PM EST Rachel Riley MD LAB BLOOD ORDERABLES Final Resul t Performing Organization Address [facility] de Phone Number [facility] [address] [place] [phone] * HIV-1/2 Antigen and Antibodies, Fourth Generation, with Reflexes (12/17/2024 1:27 PM EST) HIV AB/AG Nonreactive Nonreactive [facility] Comment:HIV-1 p24 Ag and/or HIV-1/HIV-2 Ab not detected.A test result that is nonreactive does not exclude thepossibility of exposure to or infection with HIV-1 and/orHIV-2. Nonreactive results in this assay for individualswith prior exposure to HIV-1 and/or HIV-2 may be due toantigen and antibody levels that are below the limit ofdetection of this assay.The [employer] HIV Ag/Ab Combo assay result andsupplemental assay results should be interpreted inconjunction with the patient's clinical presentation,history and other laboratory results. If the results areinconsistent with clinical evidence, additional testing issuggested to confirm the result. Blood Venous blood specimen / Unknown 12/17/2024 1:27 PM EST 12/17/2024 4:04 PM EST Rachel Riley MD LAB BLOOD ORDERABLES Final Resul t [facility] [address] [place] [address] [phone] * Hm Colonoscopy (11/04/2023) Colonoscopy Normal Normal, Abnormal, BIRADS 0 , BIRADS 1 , BIRADS 2, BIRADS 3 , BIRADS 4+ us Historical Provider HEALTH MAINTENANCE Final Result * BI US Breast Limited Left (09/24/2023 2:47 PM EST) Anatomical Region Laterality Modality Breast Left Ultrasound 09/24/2023 2:47 PM EST Narrative 09/24/2023 3:44 PM EST [address] [place] [address] Ultrasound Report Signed Patient: Chandrika Teague MR#: [id number] : 1980 Acct:[id number] Age/Sex: 43 / F ADM Date: 09/24/23 Loc: HO.MAMMO Attending Dr: Rachel Riley MD Ordering Physician: Rachel Riley MD Date of Service: 09/24/23 Procedure(s): US breast LT limited mamm only Accession Number(s): [id number] cc: Rachel Riley MD EXAMINATION: MM DIAGNOSTIC DIGITAL BREAST TOMOSYNTHESIS, LEFT US BREAST LIMITED, LEFT MAMMOGRAPHY: CLINICAL INFORMATION: Evaluate focal asymmetric density seen upper outer left breast on screening mammography. Family history premenopausal breast cancer, sister. COMPARISON: Mammography: 09/02/2023, 08/27/2022, 08/21/2021, and dating back to 2018. MR breasts 08/31/2021, 08/10/2020. TECHNIQUE: Digital left [...] in OV> 09/24/23 1540 DD/ 1447 TD/TT: Project Economist: Procedure Note Donotuseinterpreter, Image - 09/24/2023 [facility] [address] [place] [address] Ultrasound Report Signed Patient: Chandrika TeagueMR#: [id number] : 1980Acct:[id number] Age/Sex: 43 / FADM Date: 09/24/23 Loc: [facility] Attending Dr: Rachel Riley MD Ordering Physician: Rachel Riley MD Date of Service: 09/24/23 Procedure(s): US breast LT limited mamm only Accession Number(s): [id number] cc: Rachel Riley MD EXAMINATION: MM DIAGNOSTIC [...] in OV> 09/24/23 1540 DD/ 1447 TD/TT: Project Economist: Rachel Riley MD IM US PROCEDURES Final Result * THINPREP PAP (03/13/2021 12:00 AM EDT) Clinical Information: None given [facility] COMMENT SEE COMMENT [facility] Comment: EXPLANATORY NOTE: The Pap is a screening test for cervical cancer. It is not a diagnostic test and is subject to false negative and false positive results. It is most reliable when a satisfactory sample, regularly obtained, is submitted with relevant clinical findings and history, and when the Pap result is evaluated along with historic and current clinical information. Financial Operations Consultant : SEE COMMENT [facility] Comment: DMLadan, CT(ASCP) CT screening location: [place] [address] Infection Shift in vaginal beck suggestive of bacterial vaginosis. [facility] Interpretation/R esult: Negative for intraepithelial lesion or malignancy. [facility] LMP: NONE GIVEN [facility] Prev. BX: NONE GIVEN [facility] Prev. PAP: NONE GIVEN [facility] SOURCE: None given [facility] Statement Of Adequacy: SEE COMMENT [facility] Comment: Satisfactory for evaluation. Endocervical/transformation zone component present. 03/13/2021 Rachel Riley MD LAB PATHOLOGY ORDERABLES Final R esult [facility] [address] * HPV mRNA E6/E7 (03/13/2021 12:00 AM EDT) HPV nRNA E6/E7 Not Detected Not Detected [facility] Comment: Methodology: Gear Lapper-Mediated Amplification This assay detects E6/E7 viral messenger RNA (mRNA) from 14 high-risk HPV types (16,18,31,33,35,39,45,51,52,56,58,59,66,68). The analytical performance characteristics of this assay have been determined by [employer]. The modifications have not been cleared or approved by the FDA. This assay has been validated pursuant to the CLIA regulations and is used for clinical purposes. For additional information, please refer to http://education.[address]/faq/DAR229u2 (This link if provided for information/ educational purposes only.) 03/13/2021 us Rachel Riley MD LAB BLOOD ORDERABLES Final Resul t [facility] [address] from Last 3 Months or Most Recently Relevant to Health Maintenance Insurance [facility] [facility] [employer] STAND ADULT Care Teams Concrete Puddler Relationship Specialty Start Date End Date Rachel Riley MD [address] [place] [phone] PCP - General Family Medicine 08/12/25
--- OUTSIDE RECORDS SUMMARY | 2025-10-07 11:47 | XMS_ITS | Encounter Summary ---
Author Organization [employer] Address [address] [place] [address] Care Team Providers Care Cyberathlete Name Role Phone Rachel Riley MD Primary Care Provider [phone] Ivet Adhikari DDCarmen Primary Care Provider Rachel Riley MD Primary Care Provider [phone] Encounter Details Date Type Department Care Team (Late st Contact Info) Description 10/23/2023 Orders Only [facility] [address] [place], [place] [phone] Rachel Riley MD [address] [place], [place] [phone] Bunion (Primary Dx); Primary osteoarthritis of left [...] Description 11/01/2025 1:00 PM EST Office Visit [facility] [address] [place] [phone] Rachel Riley MD [address] [place] [phone] 11/15/2025 1:30 PM EST Office Visit [facility] [address] [place] [address] Blanca Greer documented as of this encounter Visit Diagnoses Diagnosis Bunion- Primary Primary osteoarthritis of left foot documented in this encounter Additional Health Concerns Assessment Noted Time PHQ-9 Depression Total Score: 7 10/03/20 23 11:26 AM EST documented as of this encounter Care Teams Cyberathlete Relationship Specialty Start Date End Date Rachel Riley MD [address] [place] [phone] PCP - General Family Medicine 10/21/18 04/15/25 Ivet Adhikari DDS [address] [place] [address] PCP - General Dental Career Technical Education Instructor 04/16/2508/11 Rachel Riley MD [address] [place] [address] PCP - General Family Medicine 08/12/25 documented as of this encounter
--- OUTSIDE RECORDS SUMMARY | 2025-10-07 11:49 | XMS_ITS | Patient Health Record ---
Author Organization [employer] [facility] Address [address] [place] [address] Care Team Providers Care Front Desk Auxiliary Name Role Phone Jasson Rice Unavailable [phone] Reason For Referral No Information Plan Of Treatment No Information
--- OUTSIDE RECORDS SUMMARY | 2025-10-07 11:49 | XMS_ITS | Encounter Summary ---
Author Organization [employer] [facility] Address [address] [place] [address] Care Team Providers Care Dinner Cook Name Role Phone Rachel Riley MD Primary Care Provider [phone] Ivet Adhikari DDS Primary Care Provider Rachel Riley MD Primary Care Provider [phone] Encounter Details Date Type Department Care Team (Latest Contact Info) Description 06/15/2021 Abstract [facility] CONVERSIONS Dental, Provider, DDS Social [...] Description 11/01/2025 1:00 PM EST Office Visit [facility] [address] [place], [place] [phone] Rachel Riley MD [address] [place], [place] [phone] 11/15/2025 1:30 PM EST Office Visit [facility]ULT [facility] [address] [place], [place] [phone] Blanca Greer documented as of this encounter Visit Diagnoses Not on filedocumented in this encounter Care Teams Dinner Cook Relationship Specialty Start Date End Date Rachel Riley MD [address] [place] [address] PCP - General Family Medicine 10/21/18 04/15/25 Ivet Adhikari DDS [address] [place] [address] PCP - General Dental Board Hammer Operator 04/16/2508/11 Rachel Riley MD [address] [place] [address] PCP - General Family Medicine 08/12/25 documented as of this encounter
--- OUTSIDE RECORDS SUMMARY | 2025-10-07 11:49 | XMS_ITS | Encounter Summary ---
Author Organization [employer] Address [address] [place] [address] Care Team Providers Care Human Capital Manager Name Role Phone Rachel Riley MD Primary Care Provider [phone] Ivet Adhikari DDCarmen Primary Care Provider Rachel Riley MD Primary Care Provider [phone] Encounter Details Date Type Department Care Team (Late st Contact Info) Description 10/29/2023 Orders Only [facility] [address] [place], [place] [phone] Rachel Riley MD [address] [place], [place] [phone] Chronic pain of both knees (Primary Dx) [...] Description 11/01/2025 1:00 PM EST Office Visit [facility] [address] [place] [phone] Rachel Riley MD [address] [place] [phone] 11/15/2025 1:30 PM EST Office Visit [facility] [address] [place] [address] Blanca Greer documented as of this encounter Visit Diagnoses Diagnosis Chronic pain of both knees- Primary documented in this encounter Additional Health Concerns Assessment Noted Time PHQ-9 Depression Total Score: 7 10/03/20 23 11:26 AM EST documented as of this encounter Care Teams Human Capital Manager Relationship Specialty Start Date End Date Rachel Riley MD [address] [place] [phone] PCP - General Family Medicine 10/21/18 04/15/25 Ivet Adhikari DDS [address] [place] [address] PCP - General Dental Mobile Developer 04/16/2508/11 Rachel Riley MD [address] [place] [address] PCP - General Family Medicine 08/12/25 documented as of this encounter
== END 2025-10-07 09:50 | disposition home or self-care (01) ==
LOC: HO.MAMMO 09:49
PROVIDERS: PCP Family Medicine; Visit Provider Family Medicine
DX: Z12.31 Encounter for screening mammogram for malignant neoplasm of breast (principal)
CPT/HCPCS: 77063; 77067

== ENCOUNTER → 2025-10-07 10:00 | Outpatient (BNV) | payer MEDICAID, SELFPAY | PROVIDERS: PCP Family Medicine; Visit Provider Radiology Body Imaging | DX: Z12.31 Encounter for screening mammogram for malignant neoplasm of breast (principal) | CPT/HCPCS: 77063; 77067 ==